=== PATIENT | female | born 1940 | race Caucasian/White ===

== ENCOUNTER 2017-10-28 13:19 | Inpatient (IN) | payer OTHER ==
--- NOTE | 2017-10-28 14:37 | PDOC ---
History of Present Illness - General History Source: Patient Exam Limitations: No Limitations - History of Present Illness Initial Comments: 10/28/17 14:37 The patient is a 77 year old female with history significant for DM, thyroid disorder, sent to the ED by her PCP for 3-4 months of generalized weakness and weight loss. The patient was seen by her PCP, who found her to be bradycardic with an abnormal EKG. She was sent to the hospital for further evaluation and concern for sick sinus syndrome. The patient denies any chest pain. She denies fever or chills. She denies nausea, vomiting, or diarrhea. PCP: Dr. Dave <Delilah Saleh - Last Filed: 10/28/17 16:16> <Shivam Storm - Last Filed: 10/28/17 16:27> - General Chief Complaint: Irregular Heart Beat Stated Complaint: PCP SENT Time Seen by Provider: 10/28/17 14:13 Past History <Delilah Saleh - Last Filed: 10/28/17 16:16> - Past Medical History COPD: No Diabetes: Yes Thyroid Disease: Yes - Suicide/Smoking/Psychosocial Hx Smoking History: Never smoked <Shivam Storm - Last Filed: 10/28/17 16:27> - Past Medical History Allergies/Adverse Reactions: Allergies Allergy/AdvReac Type Severity Reaction Status Date / Time No Known Allergies Allergy Verified 10/28/17 13:35 Review of Systems - Review of Systems Able to Perform ROS?: Yes Comments:: 10/28/17 14:58 GENERAL/CONSTITUTIONAL: +Generalized weakness. No fever or chills. HEAD, EYES, EARS, NOSE AND THROAT: No change in vision. No ear pain or discharge. No sore throat. CARDIOVASCULAR: No chest pain or shortness of breath. RESPIRATORY: No cough, wheezing, or hemoptysis. GASTROINTESTINAL: No nausea, vomiting, diarrhea or constipation. GENITOURINARY: No dysuria, frequency, or change in urination. MUSCULOSKELETAL: No joint or muscle swelling or pain. No neck or back pain. SKIN: No rash NEUROLOGIC: No headache, vertigo, loss of consciousness, or change in strength/ sensation. ENDOCRINE: +Weight loss. No increased thirst. HEMATOLOGIC/LYMPHATIC: No anemia, easy bleeding, or history of blood clots. ALLERGIC/IMMUNOLOGIC: No hives or skin allergy. <Delilah Saleh - Last Filed: 10/28/17 16:16> *Physical Exam - Vital Signs Last Vital Signs Temp Pulse Resp BP Pulse Ox 98.2 F 58 L 19 128/64 100 10/28/17 13:35 10/28/17 13:35 10/28/17 13:35 10/28/17 13:35 10/28/17 13:35 - Physical Exam Comments: 10/28/17 15:00 GENERAL: Awake, alert, and fully oriented, in no acute distress HEAD: No signs of trauma EYES: PERRLA, EOMI, sclera anicteric, conjunctiva clear ENT: Auricles normal inspection, hearing grossly normal, nares patent, oropharynx clear without exudates. Moist mucosa NECK: Normal ROM, supple, no lymphadenopathy, JVD, or masses LUNGS: Breath sounds equal, clear to auscultation bilaterally. No wheezes, and no crackles HEART: +Bradycardia, regular rhythm, normal S1 and S2, no murmurs, rubs or gallops ABDOMEN: Soft, nontender, normoactive bowel sounds. No guarding, no rebound. No masses EXTREMITIES: Normal range of motion, no edema. No clubbing or cyanosis. No cords, erythema, or tenderness NEUROLOGICAL: Cranial nerves II through XII grossly intact. Normal speech, normal gait SKIN: Warm, Dry, normal turgor, no rashes or lesions noted. <Delilah Saleh - Last Filed: 10/28/17 16:16> - Vital Signs Last Vital Signs Temp Pulse Resp BP Pulse Ox 98.2 F 58 L 19 128/64 100 10/28/17 13:35 10/28/17 13:35 10/28/17 13:35 10/28/17 13:35 10/28/17 13:35 <Shivam Storm - Last Filed: 10/28/17 16:27> Moderate Sedation - Procedure Monitoring Vital Signs: Vital Signs Temp Pulse Resp BP Pulse Ox 98.2 F 58 L 19 128/64 100 10/28/17 13:35 10/28/17 13:35 10/28/17 13:35 10/28/17 13:35 10/28/17 13:35 <Delilah Saleh - Last Filed: 10/28/17 16:16> - Procedure Monitoring Vital Signs: Vital Signs Temp Pulse Resp BP Pulse Ox 98.2 F 58 L 19 128/64 100 10/28/17 13:35 10/28/17 13:35 10/28/17 13:35 10/28/17 13:35 10/28/17 13:35 <Shivam Storm - Last Filed: 10/28/17 16:27> Heart Score/ECG Review #1 ECG reviewed & interpreted by me at: 15:15 10/28/17 16:25 NSR 55, no std/tereza ,normal axis, normal intervals, QTC 449 msec, no brugada, no HOCM, no WPW <Shivam Storm - Last Filed: 10/28/17 16:27> ED Treatment Course - LABORATORY CBC & Chemistry Diagram: 10/28/17 15:06 10/28/17 15:06 <Delilah Saleh - Last Filed: 10/28/17 16:16> - LABORATORY CBC & Chemistry Diagram: 10/28/17 15:06 10/28/17 15:06 - RADIOLOGY Radiology Studies Ordered: Category Date Time Status CHEST X-RAY PORTABLE* [RAD] Stat Radiology 10/28/17 14:13 Ordered <Shivam Storm - Last Filed: 10/28/17 16:27> Medical Decision Making - Medical Decision Making 10/28/17 16:[address] Dave, patient's PCP, at [phone]. Awaiting callback. <Delilah Saleh - Last Filed: 10/28/17 16:16> - Medical Decision Making 10/28/17 14:54 A portion of this note was documented by scribe services under my direction. I have reviewed the details of the note, within reason, and agree with the documentation with the following case summary and management plan written by me. Patient treated in the ED. Nursing notes are reviewed and incorporated into the medical decision-making. Vital signs reviewed. Peripheral IV access obtained by the nurse, laboratory studies are drawn and sent, reviewed and interpreted by myself. Vital Signs Temp Pulse Resp BP Pulse Ox 98.2 F 58 L 19 128/64 100 10/28/17 13:35 10/28/17 13:35 10/28/17 13:35 10/28/17 13:35 10/28/17 13:35 77-year-old female with past medical history of thyroid disorder, diabetes sent in by her primary care physician for palpitations. The patient for last several months been having generalized weakness and weight loss. No fevers or chills. Patient underwent a physical exam today was noted to have bradycardia and EKG and was sent to rule out sick sinus syndrome. Patient denies chest pain or shortness of breath. The patient will need a full workup including cardiac. Should also consider potentially other issues such as malignancy for weight loss. Labs, urinalysis, chest x-ray and admission to the hospital. 10/28/17 16:26 CBC, BMP 10/28/17 15:06 10/28/17 15:06 CMP Sodium 139 mmol/L (136-145) 10/28/17 15:06 Potassium 4.2 mmol/L (3.5-5.1) 10/28/17 15:06 Chloride 105 mmol/L (98-107) 10/28/17 15:06 Carbon Dioxide 28 mmol/L (21-32) 10/28/17 15:06 Anion Gap 6 (8-16) L 10/28/17 15:06 BUN 10 mg/dL (7-18) 10/28/17 15:06 Creatinine 0.7 mg/dL (0.55-1.02) 10/28/17 15:06 Creat Clearance w eGFR > 60 (>60) 10/28/17 15:06 Random Glucose 103 mg/dL (74-106) 10/28/17 15:06 Calcium 9.4 mg/dL (8.5-10.1) 10/28/17 15:06 Phosphorus 3.5 mg/dL (2.5-4.9) 10/28/17 15:06 Magnesium 2.2 mg/dL (1.8-2.4) 10/28/17 15:06 Albumin 4.0 g/dl (3.4-5.0) 10/28/17 15:[address] Dave. Accepts for telemetry admission. Requests Dr. Rodriguez for cardiac consultation. Case discussed in detail with admitting physician including history, physical exam and ancillary studies. Admitting physician has assumed care for the patient, will follow all pending diagnostics and will complete the evaluation and treatment. <Shivam Storm - Last Filed: 10/28/17 16:27> *DC/Admit/Observation/Transfer - Attestations Scribe Attestion: 10/28/17 15:01 Documentation prepared by Delilah Saleh, acting as biomedical scientist for Shivam Storm MD. <Delilah Saleh - Last Filed: 10/28/17 16:16> - Discharge Dispostion Decision to Admit order: Yes <Shivam Storm - Last Filed: 10/28/17 16:27> Diagnosis at time of Disposition: Palpitations - Discharge Dispostion Condition at time of disposition: Stable - Referrals Referrals: Reji Dave MD [Primary Care Provider] - - Patient Instructions - Post Discharge Activity
[2017-10-28 15:24] LABS: BASO % 0.6 % (0-2.0); EOS % 0.5 % (0-4.5); HEMATOCRIT 44.3 % (32.4-45.2); HEMOGLOBIN 14.6 GM/dL (10.7-15.3); LYMPH % 33.6 % (8-40); MCH 31.1 pg (25.7-33.7); MEAN CELL VOLUME 94.1 fl (80-96); MEAN PLT VOLUME 9.8 fl (7.5-11.1); MONO % 9.1 % (3.8-10.2); NEUT % 56.2 % (42.8-82.8); PLATELET COUNT 221 K/MM3 (134-434); RBC 4.71 M/mm3 (3.60-5.2); RDW 13.9 % (11.6-15.6); WHITE BLOOD COUNT 10.1 K/mm3 (4.0-10.0)
[2017-10-28 15:43] LABS: URINE APPEARANCE SLCLOUDY; URINE BILIRUBIN NEGATIVE (<2.0 mg/dL); URINE COLOR LTYELLOW; URINE GLUCOSE (UA) NEGATIVE (NEGATIVE); URINE KETONE NEGATIVE (NEGATIVE); URINE LEUK ESTERASE NEGATIVE (NEGATIVE); URINE NITRITE NEGATIVE (NEGATIVE); URINE PROTEIN NEGATIVE (NEGATIVE); URINE UROBILINOGEN NEGATIVE mg/dL (0.2-1.0)
[2017-10-28 15:51] LABS: ANION GAP 6 (8-16); BLOOD UREA NITROGEN 10 mg/dL (7-18); CALCIUM 9.4 mg/dL (8.5-10.1); CHLORIDE 105 mmol/L (98-107); CO2 28 mmol/L (21-32); CREATININE 0.7 mg/dL (0.55-1.02); GLUCOSE,RANDOM 103 mg/dL (74-106); MAGNESIUM 2.2 mg/dL (1.8-2.4); PHOSPHOROUS 3.5 mg/dL (2.5-4.9); POTASSIUM 4.2 mmol/L (3.5-5.1); SODIUM 139 mmol/L (136-145)
[2017-10-28 15:52] LABS: INR 0.95 (0.82-1.09); PROTHROMBIN TIME (PATIENT) 10.7 SEC (9.7-13.0)
[2017-10-28 15:55] LABS: ACTIVATED PTT 34.7 SECONDS (26.9-34.4)
[2017-10-28 15:59] LABS: EPI CELLS RARE /HPF (FEW); URINE MUCUS RARE
[2017-10-28 16:39] LABS: ALK PHOS 92 U/L (45-117); BILIRUBIN,TOTAL 0.5 mg/dL (0.2-1.0); SGOT/AST 20 U/L (15-37); SGPT/ALT 21 U/L (12-78); TOT PROT 8.4 g/dl (6.4-8.2)
--- NOTE | 2017-10-28 18:01 | EKG ---
Test Reason : Blood Pressure : / mmHG Vent. Rate : 055 BPM Atrial Rate : 055 BPM P-R Int : 156 ms QRS Dur : 080 ms QT Int : 470 ms P-R-T Axes : 034 059 060 degrees QTc Int : 449 ms SINUS BRADYCARDIA OTHERWISE NORMAL ECG NO PREVIOUS ECGS AVAILABLE Confirmed by BAKARI CALVERT MD ([id number]) on 10/28/2017 6:00:51 PM Referred By: Confirmed By:BAKARI CALVERT MD
[2017-10-28] MEDS ORDERED: ACETAMINOPHEN 325 MG TABLET (FP) PO PRN (22:34)
[2017-10-28] MEDS ORDERED: SERTRALINE HCL 50 MG TABLET (FP) ONE (23:38)
[2017-10-28] MEDS ORDERED: ALPRAZolam 0.25 MG TABLET ONE (23:38)
[2017-10-29 07:13] LABS: HEMATOCRIT 39.5 % (32.4-45.2); HEMOGLOBIN 13.2 GM/dL (10.7-15.3); MCH 31.3 pg (25.7-33.7); MCHC 33.5 g/dl (32.0-36.0); MEAN CELL VOLUME 93.4 fl (80-96); MEAN PLT VOLUME 9.6 fl (7.5-11.1); PLATELET COUNT 183 K/MM3 (134-434); RBC 4.23 M/mm3 (3.60-5.2); RDW 13.8 % (11.6-15.6); WHITE BLOOD COUNT 9.6 K/mm3 (4.0-10.0)
[2017-10-29] MEDS ORDERED: LEVOTHYROXINE NA 25 MCG TABLET (FP) ONE (07:19)
[2017-10-29] MEDS: LEVOTHYROXINE NA 50 MCG TABLET (FP) PO SCH (07:21)
[2017-10-29 07:50] LABS: ALBUMIN 3.4 g/dl (3.4-5.0); ANION GAP 5 (8-16); BLOOD UREA NITROGEN 12 mg/dL (7-18); CALCIUM 8.8 mg/dL (8.5-10.1); CHLORIDE 106 mmol/L (98-107); CO2 28 mmol/L (21-32); GLUCOSE,RANDOM 96 mg/dL (74-106); POTASSIUM 3.9 mmol/L (3.5-5.1); SODIUM 139 mmol/L (136-145)
[2017-10-29 07:53] LABS: ALK PHOS 79 U/L (45-117); BILIRUBIN,TOTAL 0.4 mg/dL (0.2-1.0); CHOLESTEROL 147 mg/dL (50-200); CREATININE 0.6 mg/dL (0.55-1.02); HDL CHOLESTEROL 66 mg/dL (40-60); SGOT/AST 16 U/L (15-37); SGPT/ALT 18 U/L (12-78); TRIGLYCERIDES 63 mg/dL (35-160)
[2017-10-29] MEDS ORDERED: PT OWN MED DRAWER 7, Y5N ONE (09:16)
[2017-10-29] MEDS: SERTRALINE HCL 25 MG TABLET (FP) PO SCH ×3 (09:21→15:27)
[2017-10-29] MEDS: HEPARIN NA (PORCINE) 5,000 UNITS/ML 1ML VIAL SQ SCH ×2 (09:22→21:39)
--- NOTE | 2017-10-29 09:41 | HP ---
Admitting History and Physical - Admission History of Present Illness: 77 year old female with history significant for DM, thyroid disorder, sent to the ED by her PCP for 3-4 months of generalized weakness and weight loss. The patient was seen by her PCP, who found her to be bradycardic with an abnormal EKG. She was sent to the hospital for further evaluation and concern for sick sinus syndrome. The patient denies any chest pain. She denies fever or chills. She denies nausea, vomiting, or diarrhea. - Past Medical History Cardiovascular: Yes: HTN. No: AFIB, CAD Pulmonary: No: COPD Gastrointestinal: No: GI Bleed Heme/Onc: No: Anemia Endocrine: Yes: Diabetes Mellitus - Smoking History Smoking history: Never smoked Home Medications - Allergies Allergies/Adverse Reactions: Allergies Allergy/AdvReac Type Severity Reaction Status Date / Time No Known Allergies Allergy Verified 10/28/17 13:35 - Home Medications Home Medications: Ambulatory Orders Alprazolam [Xanax] 0.5 mg PO HS 10/28/17 Cholecalciferol (Vitamin D3) [Vitamin D3] 1,000 unit PO DAILY 10/28/17 Levothyroxine [Synthroid -] 50 mcg PO DAILY 10/28/17 Sertraline HCl [Zoloft] 25 mg PO HS 10/28/17 Review of Systems - Review of Systems Constitutional: reports: Weakness Cardiovascular: reports: Shortness of Breath. denies: Chest Pain Respiratory: reports: SOB Neurological: reports: Unsteady Gait, Weakness Physical Examination Vital Signs: Vital Signs Temperature 97.6 F 10/29/17 07:04 Pulse Rate 71 10/29/17 07:04 Respiratory Rate 16 10/29/17 07:04 Blood Pressure 165/87 10/29/17 07:04 O2 Sat by Pulse Oximetry (%) 97 10/29/17 07:04 Cardiovascular: Yes: S1, S2 Respiratory: Yes: Regular, CTA Bilaterally Gastrointestinal: Yes: Normal Bowel Sounds, Soft Edema: No Neurological: Yes: Alert, Oriented, Weakness Labs: CBC, BMP 10/29/17 06:53 10/29/17 06:34 Imaging - Results EKG: Report Reviewed (sinus bradycardia) Problem List - Problems (1) Bradycardia Assessment/Plan: -symptomatic--r/o sss -holter -tele -cardio -tsh nl Code(s): R00.1 - BRADYCARDIA, UNSPECIFIED (2) Weakness Assessment/Plan: -pt eval -tele-cardio -echo Code(s): R53.1 - WEAKNESS (3) Diabetes Assessment/Plan: bgm Code(s): E11.9 - TYPE 2 DIABETES MELLITUS WITHOUT COMPLICATIONS (4) HTN (hypertension) Code(s): I10 - ESSENTIAL (PRIMARY) HYPERTENSION
[2017-10-29] MEDS: INSULIN SLIDING SCALE (NOVOLOG) 1 VIAL SQ SCH ×3 (11:21→21:40)
--- NOTE | 2017-10-29 12:01 | CON.CARD ---
Consult Consult Specialty:: Cardiology Referred by:: Dr. Dave Reason for Consultation:: Bradycardia - History of Present Illness Chief Complaint: weaknes, fatigue, abnormal EKG History of Present Illness: 77 year old woman h/o DMII, hypothyroid, sent in for c/o gen weakness, weight loss and noted to have an EKG showing sinus bradycardia. pt seen and examine in the ER in nad. states her symptoms have been going on for a long time. concerned it is her thyroid. discussed with her daughter on phone. pt denies any palpitations, no dizziness syncope or near syncope. no chest pain or sob. no pnd, orthopnea, or LE edema. she has been losing weight and feels a fullness in her throat. - History Source History Provided By: Patient, Family Member Limitations to Obtaining History: No Limitations - Past Medical History Cardio/Vascular: Yes: HTN. No: AFIB, CAD Pulmonary: No: COPD Gastrointestinal: No: GI Bleed Endocrine: Yes: Diabetes Mellitus, Hypothyroidism - Smoking History Smoking history: Never smoked - Social History Usual Living Arrangement: With Child History of Recent Travel: No Home Medications - Allergies Allergies/Adverse Reactions: Allergies Allergy/AdvReac Type Severity Reaction Status Date / Time No Known Allergies Allergy Verified 10/28/17 13:35 - Home Medications Home Medications: Ambulatory Orders Alprazolam [Xanax] 0.5 mg PO HS 10/28/17 Cholecalciferol (Vitamin D3) [Vitamin D3] 1,000 unit PO DAILY 10/28/17 Levothyroxine [Synthroid -] 50 mcg PO DAILY 10/28/17 Sertraline HCl [Zoloft] 25 mg PO HS 10/28/17 Family Disease History - Family Disease History Family History: Denies Review of Systems - Review of Systems Constitutional: reports: Malaise, Weakness. denies: No Symptoms, Chills, Diaphoresis, Fever, Lethargy, Loss of Appetite, Night Sweats, Unintentional Wgt. Loss, Other Eyes: denies: No Symptoms, Blind Spots, Blurred Vision, Double Vision, Eye Pain , Floaters, Photophobia, Recent Change in Vision, Other HENT: denies: No Symptoms, Difficult Swallowing, Ear Discharge, Ear Pain, Epistaxis, Gingival Bleeding, Hearing Loss, Mouth Swelling, Nasal Congestion, Ocular Prosthesis, Throat Pain, Toothache, Ringing in Ears, Other Neck: denies: No Symptoms, Decreased ROM, Lumps, Pain on Movement, Stiffness, Swollen Glands, Tenderness, Other Cardiovascular: denies: No Symptoms, Chest Pain, Edema, Palpitations, Shortness of Breath, Other Respiratory: denies: No Symptoms, Cough, Exercise Intolerance, Hemoptysis, Orthopnea, PND, Snoring, SOB, SOB on Exertion, Wheezing, Other Gastrointestinal: denies: No Symptoms, Abdominal Pain, Bloating, Constipation, Diarrhea, Dysphagia, Indigestion, Melena, Nausea, Rectal Bleeding, Vomiting, Vomiting Blood, Other Genitourinary: denies: No Symptoms, Burning, Discharge, Dysuria, Flank Pain, Frequency, Hematuria, Incontinence, Lesions, Menses, Pain, Testicular Mass, Testicular Pain, Testicular Swelling, Urgency, Vaginal Bleeding, Other Breasts: denies: No Symptoms Reported, See HPI, Breast Implants, Discharge from Nipple, Lumps, Pain, Skin Changes, Other Musculoskeletal: reports: Muscle Weakness. denies: No Symptoms, Back Pain, Crepitus, Decreased ROM, Extremity Pain, Joint Pain, Joint Swelling, Muscle Pain , Muscle Cramps, Other Integumentary: denies: No Symptoms, Blister, Bruising, Change in Color, Eczema, Erythema, Incision, Lesions, Lump, Pallor, Pruritis, Rash, Wound, Other Neurological: denies: No Symptoms, Change in LOC, Change in Speech, Confusion, Dizziness, Headache, Incoordination, Numbness, Parasthesia, Pre-Existing Deficit , Seizure, Syncope, Tremors, Unsteady Gait, Weakness, Other Endocrine: reports: Unexplained Weight Loss. denies: No Symptoms, Excessive Sweating, Flushing, Increased Hunger, Increased Thirst, Intolerance to Cold, Intolerance to Heat, Unexplained Weight Gain, Other Hematology/Lymphatic: denies: No Symptoms, Easily Bruised, Excessive Bleeding, Swollen Glands, Other Psychiatric: denies: No Symptoms, Altered Sleep Pattern, Anxiety, Depression, Hallucinations, Panic, Paranoia, Suicidal, Other - Risk Factors Known Risk Factors: Yes: Age, Hypertension Vital Signs: Vital Signs Temperature 97.6 F 10/29/17 07:04 Pulse Rate 71 10/29/17 07:04 Respiratory Rate 16 10/29/17 07:04 Blood Pressure 165/87 10/29/17 07:04 O2 Sat by Pulse Oximetry (%) 97 10/29/17 07:04 Constitutional: Yes: Well Nourished, No Distress, Calm Eyes: Yes: WNL, Conjunctiva Clear, EOM Intact, PERRL HENT: Yes: WNL, Atraumatic, Normocephalic Neck: Yes: WNL, Supple, Trachea Midline Respiratory: Yes: WNL, Regular, CTA Bilaterally. No: Rales, Rhonchi, Wheezes Gastrointestinal: Yes: WNL, Normal Bowel Sounds, Soft. No: Distention, Tenderness Renal/: Yes: WNL Cardiovascular: Yes: WNL, Regular Rate and Rhythm. No: Bradycardia, Tachycardia , Pulse Irregular, Gallop, Rub, Varicosities JVD: No Carotid Bruit: No PMI: Non-Displaced Heart Sounds: Yes: S1, S2. No: Split S2, S3, S4, Clicks, Gallop, Rub, Bruit Murmur: No: Systolic Murmur, Diastolic Murmur Musculoskeletal: Yes: Muscle Weakness Extremities: Yes: WNL Edema: No Peripheral Pulses WNL: Yes Peripheral Pulses: 2+ Left Doralis Pedis, 2+ Right Dorsalis Pedis Integumentary: Yes: WNL Neurological: Yes: Alert, Oriented, Cran Nerves II-XII Intact Psychiatric: Yes: Alert, Oriented - Other Data Labs, Other Data: CBC, BMP 10/29/17 06:53 10/29/17 06:34 INR, PTT INR 0.95 (0.82-1.09) 10/28/17 15:06 Troponin, BNP 10/28/17 10/29/17 15:06 06:34 Troponin I < 0.02 < 0.02 Troponin, BNP 10/28/17 10/29/17 15:06 06:34 Troponin I < 0.02 < 0.02 ekg-Sinus akua 51bpm, poor R wave progression, no sig ST abnl Echo: Pending Imaging - Results Chest X-ray: Report Reviewed, Image Reviewed EKG: Report Reviewed, Image Reviewed Other: Report Reviewed, Image Reviewed (tele-SB, NSR HR currently 88bpm) Assessment/Plan 77 year old woman h/o DMII, hypothyroid, sent in for c/o gen weakness, weight loss and noted to have an EKG showing sinus bradycardia. pt seen and examine in the ER in nad. states her symptoms have been going on for a long time. concerned it is her thyroid. discussed with her daughter on phone. pt denies any palpitations, no dizziness syncope or near syncope. no chest pain or sob. no pnd, orthopnea, or LE edema. she has been losing weight and feels a fullness in her throat. Sinus bradycardia -HR increased to 88bpm with minimal exertion in the ER. -unlikely symptomatic sinus bradycardia or sick sinus syndrome at this time -cardiac enzymes wnl -TFTs were wnl -pt unable to walk on the treadmill due to chronic weakness in legs, she appears to be chronotropically competent based on telemetry, an ETT would be helpful to further prove chronotropic competency but she cannot due it at this time due to above reasons. A pharm nuclear stress test would not answer this questions -at this time pt is acceptable to be discharged from a cardiac standpoint with a plan for further outpatient Holter/event monitor and if able to perform ETT at a later time -if remains inpatient for other reasons, ok to dc tele and Holter monitor can be performed.
[2017-10-29] MEDS ORDERED: ACETAMINOPHEN 325 MG TABLET (FP) ONE (13:11)
--- NOTE | 2017-10-29 16:12 | EKG ---
Test Reason : Blood Pressure : / mmHG Vent. Rate : 052 BPM Atrial Rate : 052 BPM P-R Int : 154 ms QRS Dur : 084 ms QT Int : 460 ms P-R-T Axes : 082 059 066 degrees QTc Int : 427 ms SINUS BRADYCARDIA POSSIBLE LEFT ATRIAL ENLARGEMENT BORDERLINE ECG WHEN COMPARED WITH ECG OF 28-OCT-2017 15:13, NO SIGNIFICANT CHANGE WAS FOUND Confirmed by MD Luis Felipe, Buck ([id number]) on 10/29/2017 4:12:23 PM Referred By: Confirmed By:Buck Briscoe MD
[2017-10-29] MEDS ORDERED: ALPRAZolam 0.25 MG TABLET PO SCH (22:00)
[2017-10-30] MEDS: INSULIN SLIDING SCALE (NOVOLOG) 1 VIAL SQ SCH ×4 (06:37→21:36)
[2017-10-30] MEDS: LEVOTHYROXINE NA 50 MCG TABLET (FP) PO SCH (06:39)
[2017-10-30] MEDS: SERTRALINE HCL 25 MG TABLET (FP) PO SCH (10:17)
[2017-10-30] MEDS: HEPARIN NA (PORCINE) 5,000 UNITS/ML 1ML VIAL SQ SCH ×2 (10:18→21:37)
--- NOTE | 2017-10-30 10:39 | PN ---
Progress Note, Physician History of Present Illness: seen and examined today in [facility]. no overnight events. no new complaints. - Current Medication List Current Medications: Active Medications Acetaminophen (Tylenol -) 650 mg PO Q6H PRN PRN Reason: PAIN 1-5 OR FEVER Last Admin: 10/29/17 08:56 Dose: 650 mg Alprazolam (Xanax -) 0.5 mg PO HS [facility] Last Admin: 10/29/17 21:39 Dose: 0.5 mg Heparin Sodium (Porcine) (Heparin -) 5,000 unit SQ BID [facility] Last Admin: 10/30/17 10:18 Dose: 5,000 unit Insulin Aspart (Novolog Vial Sliding Scale -) 1 vial SQ ACHS [facility]; Protocol Last Admin: 10/30/17 06:37 Dose: Not Given Levothyroxine Sodium (Synthroid -) 50 mcg PO DAILY@0700 [facility] Last Admin: 10/30/17 06:39 Dose: 50 mcg Sertraline HCl (Zoloft -) 25 mg PO DAILY [facility] Last Admin: 10/30/17 10:17 Dose: 25 mg - Objective Vital Signs: Vital Signs Temperature 97.7 F 10/30/17 02:09 Pulse Rate 65 10/30/17 02:09 Respiratory Rate 20 10/30/17 02:09 Blood Pressure 128/67 10/30/17 02:09 O2 Sat by Pulse Oximetry (%) 98 10/29/17 21:00 Constitutional: Yes: Well Nourished, No Distress, Calm Eyes: Yes: WNL, Conjunctiva Clear, EOM Intact, PERRL HENT: Yes: WNL, Atraumatic, Normocephalic Neck: Yes: WNL, Supple, Trachea Midline Cardiovascular: Yes: WNL, Regular Rate and Rhythm, S1, S2. No: Bradycardia, Tachycardia, Pulse Irregular, Bruit, JVD, Gallop, Murmur, Rub, S3, S4, Varicosities Respiratory: Yes: Regular, CTA Bilaterally. No: Rales, Rhonchi, Wheezes Gastrointestinal: Yes: Normal Bowel Sounds, Soft. No: Distention, Tenderness Musculoskeletal: Yes: WNL Extremities: Yes: WNL Edema: No Peripheral Pulses WNL: Yes Peripheral Pulses: Left Doralis Pedis: 2+, Right Dorsalis Pedis: 2+ Neurological: Yes: Alert, Oriented Psychiatric: Yes: Alert, Oriented Labs: CBC, BMP 10/29/17 06:53 10/29/17 06:34 INR, PTT INR 0.95 (0.82-1.09) 10/28/17 15:06 - ....Imaging Chest X-ray: Report Reviewed, Image Reviewed EKG: Report Reviewed, Image Reviewed Other: Report Reviewed, Image Reviewed Assessment/Plan 77 year old woman h/o DMII, hypothyroid, sent in for c/o gen weakness, weight loss and noted to have an EKG showing sinus bradycardia. pt seen and examine in the ER in nad. states her symptoms have been going on for a long time. concerned it is her thyroid. discussed with her daughter on phone. pt denies any palpitations, no dizziness syncope or near syncope. no chest pain or sob. no pnd, orthopnea, or LE edema. she has been losing weight and feels a fullness in her throat. Sinus bradycardia-does not appear to be symptomatic bradycardia -HR increased to 88bpm with minimal exertion in the ER. -unlikely symptomatic sinus bradycardia or sick sinus syndrome at this time -TFTs were wnl -Holter is currently on and echo was ordered, f/up results and if wnl pt is acceptable for discharge home from a cardiac standpoint with outpatient f/up -[facility] outpatient f/up
[2017-10-30] MEDS ORDERED: SERTRALINE HCL 50 MG TABLET (FP) PO SCH (11:53)
--- NOTE | 2017-10-30 11:55 | PN ---
Progress Note, Physician Chief Complaint: BLLE weakness numbness and tingling History of Present Illness: NAD, feels anxious, upon questioning, she states she feels BLLE weakness, sometimes numbness and tingling in LLE. She also complains of Left sided lumbar region pain that started 2 months ago. She was seen by Cardiology to r/o sick sinus syndrome, her workup is negative and she was cleared by Cardiology to be discharged. In past one year there has been no falls, she doesn't use any cane or walker for ambulation. - Current Medication List Current Medications: Active Medications Acetaminophen (Tylenol -) 650 mg PO Q6H PRN PRN Reason: PAIN 1-5 OR FEVER Last Admin: 10/29/17 08:56 Dose: 650 mg Alprazolam (Xanax -) 0.5 mg PO HS [facility] Last Admin: 10/29/17 21:39 Dose: 0.5 mg Cholecalciferol (Vitamin D3 -) 1,000 unit PO DAILY [facility] Heparin Sodium (Porcine) (Heparin -) 5,000 unit SQ BID [facility] Last Admin: 10/30/17 10:18 Dose: 5,000 unit Insulin Aspart (Novolog Vial Sliding Scale -) 1 vial SQ [facility]; Protocol Last Admin: 10/30/17 11:16 Dose: Not Given Levothyroxine Sodium (Synthroid -) 50 mcg PO DAILY@0700 [facility] Last Admin: 10/30/17 06:39 Dose: 50 mcg Sertraline HCl (Zoloft -) 25 mg PO DAILY [facility] Last Admin: 10/30/17 10:17 Dose: 25 mg - Objective Vital Signs: Vital Signs Temperature 98.3 F 10/30/17 09:00 Pulse Rate 76 10/30/17 09:00 Respiratory Rate 20 10/30/17 09:00 Blood Pressure 128/90 10/30/17 09:00 O2 Sat by Pulse Oximetry (%) 98 10/30/17 09:00 Constitutional: Yes: Well Nourished, No Distress, Anxious Cardiovascular: Yes: Regular Rate and Rhythm Respiratory: Yes: Regular Gastrointestinal: Yes: Normal Bowel Sounds, Soft, Abdomen, Obese Musculoskeletal: Yes: Back Pain (LEFT SIDED LUMBAR REGION) Extremities: Yes: WNL Edema: No Peripheral Pulses WNL: Yes Neurological: Yes: Alert, Oriented Psychiatric: Yes: Alert, Oriented Labs: CBC, BMP 10/29/17 06:53 10/29/17 06:34 INR, PTT INR 0.95 (0.82-1.09) 10/28/17 15:06 Problem List - Problems (1) Anxiety Assessment/Plan: -worse since her 's passing in Jul 2017 -She takes sertraline 25 mg po daily, would increase it to 50 mg po daily Code(s): F41.9 - ANXIETY DISORDER, UNSPECIFIED (2) Lower extremity numbness Assessment/Plan: -Lumbar spine MRI without contrast -Neurology consult -Flow Floor Attendant consult Code(s): R20.0 - ANESTHESIA OF SKIN (3) Diabetes Assessment/Plan: -A1C 6.8 % -Insulin Sliding Novolog sliding scale -Diabetic diet -Upon discharge would start metformin 500 mg po BID Code(s): E11.9 - TYPE 2 DIABETES MELLITUS WITHOUT COMPLICATIONS Assessment/Plan see problem list
[2017-10-30] MEDS: CHOLECALCIFEROL (VITAMIN D3) 1,000 UNIT TABLET (FP) PO SCH (12:22)
[2017-10-30] MEDS ORDERED: ALPRAZolam 0.25 MG TABLET PO PRN (13:53)
[2017-10-30 14:42] VITALS: BMI 21.8
--- NOTE | 2017-10-30 16:29 | HOL ---
Hook-up date: 2017-10-29 11:21:00 Duration: 24:00:00 Test Indications: R/O SSS Medications: 15882 QRS complexes 214 Ventricular ectopics which represent <1 % of total QRS comp. 302 Supraventricular ectopics which represent <1 % of total QRS comp. * Paced QRS complexs which represent % of total QRS comp. 9 % of Time Classified as Noise VENTRICULAR ECTOPY 207 Isolated 0 Bigeminal Cycles 1 Couplets 1 Runs 4 Beats in Runs 4 Beats LONGEST at 155 BPM at 18:25:26 2017-10-29 4 Beats FASTEST at 155 BPM at 18:25:26 2017-10-29 SUPRAVENTRICULAR ECTOPY 213 Isolated 41 Couplets 1 Runs 6 Beats in Runs 6 Beats LONGEST at 138 BPM at 17:42:06 2017-10-29 6 Beats FASTEST at 138 BPM at 17:42:06 2017-10-29 HEART RATES 48 MIN at 13:04:10 2017-10-29 67 AVG 129 MAX at 22:55:06 2017-10-29 LONGEST RR 1.536 secs at 22:24:28 2017-10-29 SCANNED BY: CARLINE 10/30/17 Normal sinus rhythm 4 beats NSVT at 155 BPM 6 beats SVT at 138 bpm Confirmed by JAVID FONG MD ([id number]) on 10/30/2017 4:29:18 PM Referred By: Beth SAVAGE Overread By: JAVID FONG MD
--- NOTE | 2017-10-30 17:55 | CONS ---
DATE OF CONSULTATION: 10/29/2017 DATE OF DICTATION: 10/30/2017 PHYSICAL MEDICINE REHABILITATION CONSULTATION HISTORY OF PRESENT ILLNESS: The patient is a 77-year-old woman with past medical history of thyroid disorder as well as diabetes who was admitted to [facility] with bradycardia, abnormal EKG, generalized weakness and weight loss. Patient states she has had multiple deaths including a relative back in January of 2017 and her in June 2017. She has been increasingly feeling weak and was seen in her primary care physician's office, where she was found to have abnormal EKG with bradycardia. She was sent to the emergency room where she was admitted. She has undergone cardiology consultation, who felt that she has sinus bradycardia. Cardiac enzymes were normal for further workup as an outpatient. CBC on admission: WBC is elevated at 10.1, repeat October 29 of 9.6. Hemoglobin stable at 13.2, platelet count 183. Patient's chemistry was within normal limits except for HDLs, which were elevated at 66. TSH normal 2.12, free T4 of 1.14, free T3 of 2.8. Hemoglobin A1c however was elevated at 6.8. Patient herself feels unsteady, tremulous when standing and is now seen in rehabilitation evaluation. PAST MEDICAL AND SURGICAL HISTORY: Thyroid disorder as well as diabetes. SOCIAL HISTORY: Lives alone. Recent . Lives in an apartment with an elevator. Premorbidly independent, but she has been having increasing difficulty with her mobility. REVIEW OF SYSTEMS: No current lightheadedness, dizziness. No blurry vision or double vision. No nausea, vomiting, difficulty swallowing, difficulty chewing. She does have good appetite but weight loss, some tingling in the toes at times but no elena numbness, no joint arthralgias, no neck or back pain, no rash, no dysuria, polyuria, no bowel incontinence or retention, no diarrhea. PHYSICAL EXAMINATION: General: Patient is an anxious woman who is seen both sitting as well as standing and taking a few steps in no acute distress. HEENT: Normocephalic, atraumatic. Extraocular muscles appear intact. Neck: Supple without any palpable spasm. Slightly kyphotic posture. Lumbar spine without any palpable spasm or tenderness. Good lumbar range of motion. She has trace edema in the lower extremities, no calf tenderness. Skin: Without any rash or breakdown. Neuromuscular: She is awake, alert, oriented x3. Cranial nerves 2-12 are grossly intact. She has fairly good strength in the upper extremities with some mild proximal weakness in the shoulder girdle and hip girdle, and 4+ out of 5, but good distal strength, normal sensation to pinprick or cold temperature, but depressed reflexes. Her gait is unsteady. She has a little bit of difficulty standing erect and seems fatigued. OVERALL IMPRESSION: 1. Deficits in mobility and activities of daily living. 2. Decondition. 3. Weight loss. 4. Sinus bradycardia. Workup in progress. 5. History of diabetes with elevated hemoglobins, A1c. 6. Thyroid disorder. 7. Status post leukocytosis. PLAN/SUGGESTION: 1. Physical therapy to evaluate the patient including bed mobility transfers, gait training, strengthening, reconditioning. 2. Out of bed to chair with assistance. 3. Ambulate on the unit with nursing supervision if appropriate. 4. DVT prophylaxis on subcutaneous heparin. 5. Monitor bowels for constipation. 6. Probably disposition home with home care when medically stable. Thank you for this consultation. VIBHA WRIGHT M.D. [id number]
[2017-10-31] MEDS ORDERED: ALPRAZolam 0.25 MG TABLET PO ONE (02:52)
[2017-10-31] MEDS: INSULIN SLIDING SCALE (NOVOLOG) 1 VIAL SQ SCH ×2 (06:22→12:10)
[2017-10-31] MEDS: LEVOTHYROXINE NA 50 MCG TABLET (FP) PO SCH (06:23)
--- NOTE | 2017-10-31 09:35 | CONSULT ---
Consult - text type - Consultation Consultation Note: Neurology 77 year old female with history significant for DM, thyroid disorder, sent to the ED by her PCP for 3-4 months of generalized weakness and weight loss. The patient was seen by her PCP, who found her to be bradycardic with an abnormal EKG. She was sent to the hospital for further evaluation and concern for sick sinus syndrome. I was consulted due to weakness and during my evaluation, she was ambulating without difficulty. Has no strenght deficits. SHe does have a history of low back pain and MRI L spine completed overnight, reviewed with her today. Showed disc protrusions, L3-S1, shallow, indent thecal sac but no canal or foramina stenosis. Does not have significant back pain at this time. Discussed with her physical therapy to help with her feeling of weakness in her legs, though no actual deficit. - Past Medical History Cardiovascular: Yes: HTN. No: AFIB, CAD Pulmonary: No: COPD Gastrointestinal: No: GI Bleed Heme/Onc: No: Anemia Endocrine: Yes: Diabetes Mellitus - Smoking History Smoking history: Never smoked Home Medications - Allergies Allergies/Adverse Reactions: Allergies Allergy/AdvReac Type Severity Reaction Status Date / Time No Known Allergies Allergy Verified 10/28/17 13:35 - Home Medications Home Medications: Ambulatory Orders Alprazolam [Xanax] 0.5 mg PO HS 10/28/17 Cholecalciferol (Vitamin D3) [Vitamin D3] 1,000 unit PO DAILY 10/28/17 Levothyroxine [Synthroid -] 50 mcg PO DAILY 10/28/17 Sertraline HCl [Zoloft] 25 mg PO HS 10/28/17 Review of Systems - Review of Systems Constitutional: reports: Weakness Cardiovascular: reports: Shortness of Breath. denies: Chest Pain Respiratory: reports: SOB Neurological: reports: Unsteady Gait, Weakness Physical Examination Vital Signs Temperature 98.1 F 10/31/17 06:00 Pulse Rate 81 10/31/17 06:00 Respiratory Rate 18 10/31/17 06:00 Blood Pressure 136/62 10/31/17 06:00 O2 Sat by Pulse Oximetry (%) 96 10/30/17 21:00 Cardiovascular: Yes: S1, S2 Respiratory: Yes: Regular, CTA Bilaterally Gastrointestinal: Yes: Normal Bowel Sounds, Soft Edema: No Neurological: Yes: Alert, Oriented, CN intact, strength symetric and normal, sensation intact, gait without difficulty, no ataxia 10/29/17 06:53 10/29/17 06:34 Imaging MRI L spine reviewed PLan 77 year old female with history significant for DM, thyroid disorder, sent to the ED by her PCP for 3-4 months of generalized weakness and weight loss. The patient was seen by her PCP, who found her to be bradycardic with an abnormal EKG. She was sent to the hospital for further evaluation and concern for sick sinus syndrome. I was consulted due to weakness and during my evaluation, she was ambulating without difficulty. Has no strenght deficits. SHe does have a history of low back pain and MRI L spine completed overnight, reviewed with her today. Showed disc protrusions, L3-S1, shallow, indent thecal sac but no canal or foramina stenosis. Does not have significant back pain at this time. Discussed with her physical therapy to help with her feeling of weakness in her legs, though no actual deficit. Would pursue conservative care Gabapentin can be given if having sciatica but did not describe this to me Not ataxic, ambulates Can give OTC nsaids (ibuprofen) if pain Advised exercise to strenghten muscles
[2017-10-31] MEDS ORDERED: PT OWN MED DRAWER 7, Y5N ONE (09:47)
[2017-10-31] MEDS: HEPARIN NA (PORCINE) 5,000 UNITS/ML 1ML VIAL SQ SCH (09:56)
[2017-10-31] MEDS: CHOLECALCIFEROL (VITAMIN D3) 1,000 UNIT TABLET (FP) PO SCH (09:56)
[2017-10-31 13:28] VITALS: BP 100/57; PULSE 60; TEMP 97.9
--- NOTE | 2017-10-31 13:44 | DS ---
Physical Examination Vital Signs: Vital Signs Temperature 97.9 F 10/31/17 13:26 Pulse Rate 60 10/31/17 13:26 Respiratory Rate 20 10/31/17 13:26 Blood Pressure 100/57 10/31/17 13:26 O2 Sat by Pulse Oximetry (%) 96 10/31/17 09:00 Constitutional: Yes: Well Nourished, No Distress, Anxious Cardiovascular: Yes: Regular Rate and Rhythm Respiratory: Yes: Regular Gastrointestinal: Yes: Normal Bowel Sounds, Soft Musculoskeletal: Yes: Muscle Weakness Extremities: Yes: WNL Edema: No Peripheral Pulses WNL: Yes Neurological: Yes: Alert, Oriented Psychiatric: Yes: Alert, Oriented Labs: CBC, BMP 10/29/17 06:53 10/29/17 06:34 Discharge Summary Reason For Visit: PALPITATIONS Current Active Problems Anxiety (Acute) Bradycardia (Acute) Diabetes (Acute) HTN (hypertension) (Acute) Lower extremity numbness (Acute) Palpitations (Acute) Weakness (Acute) Hospital Course: 77 year old female with history significant for DM, thyroid disorder, sent to the ED by her PCP for 3-4 months of generalized weakness and weight loss. The patient was seen by her PCP, who found her to be bradycardic with an abnormal EKG. She was sent to the hospital for further evaluation and concern for sick sinus syndrome. The patient denies any chest pain. She denies fever or chills. She denies nausea, vomiting, or diarrhea. Condition: Stable - Instructions Diet, Activity, Other Instructions: -Increase Sertraline to 50 mg daily -Start Gabapentin 100 mg 3 x day (B,L,D) -Follow up with Dr Jayesh Christianson (Neurology) and Dr Reji Dave (PCP) outpatient Referrals: Jayesh Christianson MD [Staff Physician] - Reji Dave MD [Primary Care Provider] - Disposition: HOME - Home Medications Comprehensive Discharge Medication List: Ambulatory Orders Alprazolam [Xanax] 0.5 mg PO HS 10/28/17 Cholecalciferol (Vitamin D3) [Vitamin D3] 1,000 unit PO DAILY 10/28/17 Levothyroxine [Synthroid -] 50 mcg PO DAILY 10/28/17 Sertraline HCl [Zoloft] 25 mg PO HS 10/28/17 Losartan Potassium [Cozaar -] 50 mg PO DAILY 10/29/17 Gabapentin [Neurontin -] 100 mg PO Q8H #90 capsule 10/31/17 Sertraline HCl [Zoloft -] 50 mg PO DAILY #30 tablet 10/31/17
== END 2017-10-31 14:16 | disposition home or self-care (01) | DRG 310 ==
LOC: JER 13:19 → JERBED 16:27 → J7W 10-29 16:15
PROVIDERS: ADMIT Family Medicine; ATTEND Family Medicine
DX: R00.1 Bradycardia, unspecified (principal); R00.2 Palpitations; E11.9 Type 2 diabetes mellitus without complications; I10 Essential (primary) hypertension; E03.9 Hypothyroidism, unspecified; I36.1 Nonrheumatic tricuspid (valve) insufficiency; M51.26 Other intervertebral disc displacement, lumbar region; F41.9 Anxiety disorder, unspecified; R20.0 Anesthesia of skin
CPT/HCPCS: 36415; 71045-TC-FY; 72148-TC; 80053; 80061; 81003; 81015; 82550; 82962; 83036; 83721; 83735; 84100; 84439; 84443; 84481; 84484; 85025; 85027; 85610; 85730; 93005; 93010; 93225; 93226; 93306-TC; 97116-GP; 97161-GP; 99285-25; J1644

== ENCOUNTER 2020-02-24 09:02 | Inpatient (IN) | payer OTHER ==
--- OUTSIDE RECORDS SUMMARY | 2020-02-24 09:48 | XMS ---
:1940 Author Organization [facility] Care Team Providers Name Role Phone DiGiorno, Christopher Unavailable DiGiorno, Christopher Unavailable DiGiorno, Christopher Unavailable 0004 Jolie, Ammir Unavailable [phone] Jolie, Ammir Unavailable [phone] Jolie, Ammir Unavailable [phone] Jolie, Ammir Unavailable [phone] Jolie, Ammir Unavailable [phone] Jolie, Ammir Unavailable [phone] Jolie, Ammir Unavailable [phone] Jolie, Ammir Unavailable [phone] Jolie, Ammir Unavailable [phone] Jolie, Ammir Unavailable [phone] Jolie, Ammir Unavailable [phone] Jolie, Ammir Unavailable [phone] Jolie, Ammir Unavailable [phone] Jolie, Ammir Unavailable [phone] Jolie, Ammir Unavailable [phone] Re-disclosure Warning The records that you are about to access may contain information from federally- assisted alcohol or drug abuse programs. If such information is present, then the following federally mandated warning applies: This information has been disclosed to you from records protected by federal confidentiality rules (42 CFR part 2). The federal rules prohibit you from making any further disclosure of this information unless further disclosure is expressly permitted by the written consent of the person to whom it pertains or as otherwise permitted by 42 CFR part 2. A general authorization for the release of medical or other information is NOT sufficient for this purpose. The Federal rules restrict any use of the information to criminally investigate or prosecute any alcohol or drug abuse patient.The records that you are about to access may contain highly sensitive health information, the redisclosure of which is protected by Article 27-F of the [facility] Public Health law. If you continue you may haveaccess to information: Regarding HIV / AIDS; Provided by facilities licensed or operated by the [facility] Office of Mental Health; or Provided by the [facility] Office for People With Developmental Disabilities. If such information is present, then the following [facility] mandated warning applies: This information has been disclosed to you from confidential records which are protected by state law. State law prohibits you from making any further disclosure of this information without the specific written consent of the person to whom it pertains, or as otherwise permitted by law. Any unauthorized further disclosure in violation of state law may result in a fine or assisted sentence or both. A general authorization for the release of medical or other information is NOT sufficient authorization for further disclosure. Encounters Encounter Providers Location Date Indications Data Source(s ) Attender: Hardeep 02/17/2020 MED [facility] ([facility] 12:00:00 AM [facility], ) EDT Office Attender: aHrdeep 02/17/2020 12:00:00 AM ED T [facility] ([facility], ) Office Attender: Hardeep 02/17/2020 12:00:00 AM ED T [facility] Office Attender: Reji Dave 01/27/2020 12:00:00 AM E DT MEDGEN ([facility]) Office Attender: Reji Dave 01/27/2020 12:00:00 AM E DT MEDGEN ([facility] Jolie Physician) Office Attender: Reji Dave 01/27/2020 12:00:00 AM E DT MEDGEN ([facility] Jolie Physician) Office Attender: Reji Dave 01/18/2020 12:00:00 AM E DT MEDGEN ([facility] Jolie Physician) Office Attender: Ammir Jolie 01/18/2020 12:00:00 AM E DT MEDGEN ([facility] Jolie Physician) Office Attender: Ammir Jolie 01/18/2020 12:00:00 AM E DT MEDGEN ([facility] Jolie Physician) Office Attender: mir Jolie 01/18/2020 12:00:00 AM E DT MEDGEN ([facility] Jolie Physician) Office Attender: mir Jolie 01/18/2020 12:00:00 AM E DT MEDGEN ([facility] Jolie Physician) Office Attender: mir Jolie 01/18/2020 12:00:00 AM E DT MEDGEN ([facility] Jolie Physician) Office Attender: mir Jolie 01/18/2020 12:00:00 AM E DT MEDGEN ([facility] Jolie Physician) Office Attender: mir Jolie 01/18/2020 12:00:00 AM E DT MEDGEN ([facility] Jolie Physician) Office Attender: mir Jolie 01/18/2020 12:00:00 AM E DT MEDGEN ([facility] Jolie Physician) Office Attender: mir Jolie 01/18/2020 12:00:00 AM E DT MEDGEN ([facility] Jolie Physician) Office Immunizations Vaccine Date Status Description Data Source(s) New in 2011. IIV4 04/22/2019 completed MEDGEN (A mmir Jolie 12:00:00 AM EST Physician) New in 2011. IIV4 04/22/2019 completed MEDGEN (A mmir Jolie 12:00:00 AM EST Physician) Pneumococcal conjugate 02/19/2018 completed MEDGE N (Ammir Jolie PCV 13 12:00:00 AM EDT Physician) Pneumococcal conjugate 02/19/2018 completed MEDGE N (Ammir Jolie PCV 13 12:00:00 AM EDT Physician) Medications Medication Brand Start Product Dose Route Administrative Pharmacy St atus Indications Reaction Description Data Name Date Form Instructions Instructions Source(s) quetiapine SEROQU 02/16/ TABLET 30 complet SEROQ UEL [facility] (St 50 MG Oral EL:616 2020 ed [facility] Tablet 487 12:00: Medical, SEROQUEL:61 00 AM PC) 6487 EDT Lisinopril LISINO 02/16/ TABLET 30 complet LISIN OPRIL [facility] (St 10 MG Oral PRIL:3 2019 ed [facility] Tablet 52658 12:00: Medical, LISINOPRIL: 00 AM PC) 122110 EDT pantoprazol PANTOP 02/16/ DELAYED 30 complet GARNER TOPRAZOLE MED[facility] (St e 20 MG RAZOLE 2019 RELEASE ed [facility] Delayed :76657 12:00: TABLET Medica l, Release 2 00 AM PC) Oral Tablet EDT PANTOPRAZOL E:[id number] MULTI 02/16/ complet MULTI MED[facility] ( St VITAMIN: 2020 ed VITAMIN [facility] 12:00: Medical, 00 AM PC) EDT Levothyroxi LEVOTH 02/16/ TABLET 30 complet LEVO THYROXIN MED[facility] (St ne Sodium YROXIN 2019 ed E [facility] 0.05 MG E:9662 12:00: Medical, Oral Tablet 21 AM PC) LEVOTHYROXI EDT NE:745226 Hydrochloro HYDROC 01/17/ CAPSULE 7 complet HYD ROCHLOROT MEDGEN thiazide HLOROT 2020 ed HIAZIDE (Ammir 12.5 MG HIAZID 12:00: Jolie Oral E:1998 AM Physician) Capsule 03 EDT HYDROCHLORO THIAZIDE:19 9903 quetiapine SEROQU 01/17/ TABLET 15 complet SEROQ UEL MEDGEN 25 MG Oral EL:153 2020 ed (Ammir Tablet 638 12:00: Jolie [Seroquel] 00 AM Physicia n) SEROQUEL:15 EDT 3638 Hydrochloro HYDROC 01/17/ CAPSULE 7 complet HYD ROCHLOROT MEDGEN thiazide HLOROT 2020 ed HIAZIDE (Ammir 12.5 MG HIAZID 12:00: Jolie Oral E:1998 AM Physician) Capsule 03 EDT HYDROCHLORO THIAZIDE:19 9903 quetiapine SEROQU 01/17/ TABLET 15 complet SEROQ UEL MEDGEN 25 MG Oral EL:153 2020 ed (Ammir Tablet 638 12:00: Jolie [Seroquel] 00 AM Physicia n) SEROQUEL:15 EDT 3638 pantoprazol PANTOP 12/20/ DELAYED 30 complet GARNER TOPRAZOLE MEDGEN e 40 MG RAZOLE 2020 RELEASE ed (Ammir Delayed :93238 12:00: TABLET Jolie Release 0 00 AM Physician) Oral Tablet EDT PANTOPRAZOL E:960144 pantoprazol PANTOP 12/20/ DELAYED 30 complet GARNER TOPRAZOLE MEDGEN e 40 MG RAZOLE 2019 RELEASE ed (Ammir Delayed :75607 12:00: TABLET Jolie Release 0 00 AM Physician) Oral Tablet EDT PANTOPRAZOL E:575770 Esomeprazol NEXIUM 10/20/ DELAYED 30 complet NEX IUM MEDGEN e 20 MG :12758 2019 RELEASE ed (Ammir Delayed 6 12:00: CAPSULE Jolie Release 00 AM Physician) Oral EDT Capsule NEXIUM:6067 26 Esomeprazol NEXIUM 10/20/ DELAYED 30 complet NEX IUM MEDGEN e 20 MG :61849 2019 RELEASE ed (Ammir Delayed 6 12:00: CAPSULE Jolie Release 00 AM Physician) Oral EDT Capsule NEXIUM:6067 26 MULTIVITAMI 09/15/ CAPSULE 90 complet MULTI VITAMIN MEDGEN N:333808 0036 ed (Ammir 12:00: Jolie 00 AM Physician) EDT Ascorbic VITAMI 09/15/ TABLET 120 complet VITAMIN C MEDGEN Acid 500 MG N 2020 ed (Ammir Oral Tablet C:2824 12:00: Raba di VITAMIN 02 00 AM Physician) C:358979 EDT MULTIVITAMI 09/15/ CAPSULE 90 complet MULTI VITAMIN MEDGEN N:780581 4341 ed (Ammir 12:00: Jolie 00 AM Physician) EDT Ascorbic VITAMI 09/15/ TABLET 120 complet VITAMIN C MEDGEN Acid 500 MG N 2020 ed (Ammir Oral Tablet C:2824 12:00: Raba di VITAMIN 02 00 AM Physician) C:980236 EDT Lisinopril LISINO 06/16/ TABLET 90 complet LISIN OPRIL MEDGEN 10 MG Oral PRIL:3 2019 ed (Ammir Tablet 04198 12:00: Jolie LISINOPRIL: 00 AM Physici an) 823310 EST Levothyroxi SYNTHR 06/16/ TABLET 30 complet SYNT HROID MEDGEN ne Sodium OID:96 2019 ed (Ammir 0.05 MG 6247 12:00: Jolie Oral Tablet 00 AM Physici an) [Synthroid] EST SYNTHROID:9 06843 Lisinopril LISINO 06/16/ TABLET 90 complet LISIN OPRIL MEDGEN 10 MG Oral PRIL:3 2019 ed (Ammir Tablet 54997 12:00: Jolie LISINOPRIL: 00 AM Physici an) 684772 EST Levothyroxi SYNTHR 06/16/ TABLET 30 complet SYNT HROID MEDGEN ne Sodium OID:96 2019 ed (Ammir 0.05 MG 6247 12:00: Jolie Oral Tablet 00 AM Physici an) [Synthroid] EST SYNTHROID:9 48675 Mirtazapine MIRTAZ 04/28/ TABLET 30 complet MIRT AZAPINE MEDGEN 7.5 MG Oral APINE: 2019 ed (Ammir Tablet 034694 12:00: Jolie MIRTAZAPINE 00 AM Physici an) :327734 EST Isopropyl ALCOHO 04/28/ PAD 1 complet ALCOHOL PREP MEDGEN Alcohol 0.7 L PREP 2019 ed PADS (Ammir ML/ML PADS:7 12:00: Jolie Medicated 48011 00 AM Physicia n) Pad ALCOHOL EST PREP PADS:789727 Mirtazapine MIRTAZ 04/28/ TABLET 30 complet MIRT AZAPINE MEDGEN 7.5 MG Oral APINE: 2019 ed (Ammir Tablet 780362 12:00: Jolie MIRTAZAPINE 00 AM Physici an) :410563 EST Isopropyl ALCOHO 04/28/ PAD 1 complet ALCOHOL PREP MEDGEN Alcohol 0.7 L PREP 2019 ed PADS (Ammir ML/ML PADS:7 12:00: Jolie Medicated 96427 00 AM Physicia n) Pad ALCOHOL EST PREP PADS:023394 Aspirin 81 ASPIRI 01/21/ DELAYED 90 complet ASPI RIN MEDGEN MG Delayed N 2019 RELEASE ed ADULT LOW ( Ammir Release ADULT 12:00: TABLET STRENGTH Rab dione Oral Tablet LOW 00 AM Physici an) ASPIRIN STRENG EDT ADULT LOW TH:308 STRENGTH:30 416 8416 Aspirin 81 ASPIRI 01/21/ DELAYED 90 complet ASPI RIN MEDGEN MG Delayed N 2019 RELEASE ed ADULT LOW ( Ammir Release ADULT 12:00: TABLET STRENGTH Rab dione Oral Tablet LOW 00 AM Physici an) ASPIRIN STRENG EDT ADULT LOW TH:308 STRENGTH:30 416 8416 gabapentin GABAPE 01/21/ CAPSULE 90 complet JACK PENTIN MEDGEN 100 MG Oral NTIN:3 2018 ed (Ammir Capsule 98913 12:00: Jolie GABAPENTIN: 00 AM Physici an) 317691 EDT CALCIUM-VIT 01/21/ TABLET 60 complet CALCIU M-NIALL MEDGEN QUIROZ 2018 ed MIN D (Ammir D:[id number] 12:00: Jolie 00 AM Physician) EDT Sertraline ZOLOFT 01/21/ TABLET 30 complet ZOLOF T MEDGEN 50 MG Oral :2018 ed (Ammir Tablet 1 12:00: Jolie [Zoloft] 00 AM Physician) ZOLOFT:2080 EDT 61 CALCIUM-VIT 01/21/ TABLET 60 complet CALCIU M-NIALL MEDGEN QUIROZ 2018 ed MIN D (Ammir D:[id number] 12:00: Jolie 00 AM Physician) EDT gabapentin GABAPE 01/21/ CAPSULE 90 complet JACK PENTIN MEDGEN 100 MG Oral NTIN:3 2018 ed (Ammir Capsule 75261 12:00: Jolie GABAPENTIN: 00 AM Physici an) 183867 EDT Sertraline ZOLOFT 01/21/ TABLET 30 complet ZOLOF T MEDGEN 50 MG Oral :2018 ed (Ammir Tablet 1 12:00: Jolie [Zoloft] 00 AM Physician) ZOLOFT:2080 EDT 61 Insurance Providers Payer name Policy type Policy ID Covered Covered alliance party's Policy P denia / Coverage alliance party ID relationship to Bess Inf ormation type bess MEDICAID [id number] SP [id number] [employer] [id number] SP [id number] MEDICARE [employer] FIRST [id number] CLAIMS Problems, Conditions, and Diagnoses Code Display Name Description Problem Type Effective Data Dates Source(s) D64.9 Anemia, unspecified ANEMIA, UNSPECIFIED Problem 020 MED[facility] (St 12:00:00 AM [facility], ) Z12.11 Encounter for ENCOUNTER FOR Problem 02/17/2020 MEDGEN ( St screening for SCREENING FOR 12:00:00 AM [facility] malignant neoplasm MALIGNANT NEOPLASM [facility], ) of colon OF COLON R10.10 Upper abdominal UPPER ABDOMINAL Problem 02/17/2020 MEDG EN (St pain, unspecified PAIN, UNSPECIFIED 12:00:00 AM [facility], ) R71.8 Other abnormality OTHER ABNORMALITY Problem 01/27/2020 MEDGEN (Ammir of red blood cells OF RED BLOOD CELLS 12:00:00 AM Jolie EDT Physician) R60.9 Edema, unspecified EDEMA, UNSPECIFIED Problem 0 MEDGEN (Ammir 12:00:00 AM Jolie EDT Physician) R60.9 Edema, unspecified EDEMA, UNSPECIFIED Problem 0 MEDGEN (Ammir 12:00:00 AM Jolie EDT Physician) B96.81 Helicobacter pylori HELICOBACTER PYLORI Problem 020 MEDGEN (Ammir [H. pylori] as the [H. PYLORI] THE 12:00:00 AM Jolie cause of diseases CAUSE OF DISEASES EDT Physician) classified CLASSIFIED elsewhere ELSEWHERE I83.90 Asymptomatic ASYMPTOMATIC Problem 12/21/2019 MEDGEN (Am corey varicose veins of VARICOSE VEINS OF 12:00:00 AM Jolie unspecified lower UNSPECIFIED LOWER EDT Physician) extremity EXTREMITY R10.9 Unspecified UNSPECIFIED Problem 12/21/2019 MEDGEN (Ammi r abdominal pain ABDOMINAL PAIN 12:00:00 AM Rabad i EDT Physician) B96.81 Helicobacter pylori HELICOBACTER PYLORI Problem MEDGEN (Ammir [H. pylori] as the [H. PYLORI] THE 12:00:00 AM Jolie cause of diseases CAUSE OF DISEASES EDT Physician) classified CLASSIFIED elsewhere ELSEWHERE I83.90 Asymptomatic ASYMPTOMATIC Problem 12/21/2019 MEDGEN ([facility]y varicose veins of VARICOSE VEINS OF 12:00:00 AM Jolie unspecified lower UNSPECIFIED LOWER EDT Physician) extremity EXTREMITY R10.9 Unspecified UNSPECIFIED Problem 12/21/2019 MEDGEN (Ammi r abdominal pain ABDOMINAL PAIN 12:00:00 AM Rabad i EDT Physician) R26.89 Other abnormalities OTHER ABNORMALITIES Problem 020 MEDGEN (Ammir of gait and OF GAIT AND 12:00:00 AM Jolie mobility MOBILITY EDT Physician) R26.89 Other abnormalities OTHER ABNORMALITIES Problem MEDGEN (Ammir of gait and OF GAIT AND 12:00:00 AM Jolie mobility MOBILITY EDT Physician) Z71.89 Other specified OTHER SPECIFIED Problem 09/16/2019 MEDG EN (Ammir counseling COUNSELING 12:00:00 AM Jolie EDT Physician) Z71.89 Other specified OTHER SPECIFIED Problem 09/16/2019 MEDG EN (Ammir counseling COUNSELING 12:00:00 AM Jolie EDT Physician) F32.9 Major depressive MAJOR DEPRESSIVE Problem 07/28/2019 ME DGEN (Ammir disorder, single DISORDER, SINGLE 12:00:00 AM R traci episode, EPISODE, EST Physician) unspecified UNSPECIFIED F32.9 Major depressive MAJOR DEPRESSIVE Problem 07/28/2019 ME DGEN (Ammir disorder, single DISORDER, SINGLE 12:00:00 AM R traci episode, EPISODE, EST Physician) unspecified UNSPECIFIED D50.9 Iron deficiency IRON DEFICIENCY Problem 06/16/2019 MEDG EN (Ammir anemia, unspecified ANEMIA, UNSPECIFIED 12:00:0 0 AM Jolie EST Physician) J11.1 Influenza due to INFLUENZA DUE TO Problem 06/16/2019 ME DGEN (Ammir unidentified UNIDENTIFIED 12:00:00 AM Jolie influenza virus INFLUENZA VIRUS EST Phys ician) with other WITH OTHER respiratory RESPIRATORY manifestations MANIFESTATIONS J01.90 Acute sinusitis, ACUTE SINUSITIS, Problem 06/16/2019 ME DGEN (Ammir unspecified UNSPECIFIED 12:00:00 AM Jolie EST Physician) 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 Problem 0 MEDGEN (Ammir (acquired) (ACQUIRED) 12:00:00 AM Jolie EST Physician) D50.9 Iron deficiency IRON DEFICIENCY Problem 06/16/2019 MEDG EN (Ammir anemia, unspecified ANEMIA, UNSPECIFIED 12:00:0 0 AM Jolie EST Physician) J11.1 Influenza due to INFLUENZA DUE TO Problem 06/16/2019 ME DGEN (Ammir unidentified UNIDENTIFIED 12:00:00 AM Jolie influenza virus INFLUENZA VIRUS EST Phys ician) with other WITH OTHER respiratory RESPIRATORY manifestations MANIFESTATIONS J01.90 Acute sinusitis, ACUTE SINUSITIS, Problem 06/16/2019 ME DGEN (Ammir unspecified UNSPECIFIED 12:00:00 AM Jolie EST Physician) 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 Problem 0 MEDGEN (Ammir (acquired) (ACQUIRED) 12:00:00 AM Jolie EST Physician) R63.0 Anorexia ANOREXIA Problem 04/28/2019 MEDGEN (Ammir 12:00:00 AM Jolie EST Physician) R63.0 Anorexia ANOREXIA Problem 04/28/2019 MEDGEN (Ammir 12:00:00 AM Jolie EST Physician) J30.9 Allergic rhinitis, ALLERGIC RHINITIS, Problem 9 MEDGEN (Ammir unspecified UNSPECIFIED 12:00:00 AM Jolie EST Physician) J20.9 Acute bronchitis, ACUTE BRONCHITIS, Problem 04/22/2019 MEDGEN (Ammir unspecified UNSPECIFIED 12:00:00 AM Jolie EST Physician) J30.9 Allergic rhinitis, ALLERGIC RHINITIS, Problem 9 MEDGEN (Ammir unspecified UNSPECIFIED 12:00:00 AM Jolie EST Physician) J20.9 Acute bronchitis, ACUTE BRONCHITIS, Problem 04/22/2019 MEDGEN (Ammir unspecified UNSPECIFIED 12:00:00 AM Jolie EST Physician) M48.05 Spinal stenosis, SPINAL STENOSIS, Problem 01/21/2019 ME DGEN (Ammir thoracolumbar THORACOLUMBAR 12:00:00 AM Jolie region REGION EDT Physician) M48.05 Spinal stenosis, SPINAL STENOSIS, Problem 01/21/2019 ME DGEN (Ammir thoracolumbar THORACOLUMBAR 12:00:00 AM Jolie region REGION EDT Physician) M54.16 Radiculopathy, RADICULOPATHY, Problem 12/22/2018 MEDGEN (Ammir lumbar region LUMBAR REGION 12:00:00 AM Jolie EDT Physician) M54.16 Radiculopathy, RADICULOPATHY, Problem 12/22/2018 MEDGEN (Ammir lumbar region LUMBAR REGION 12:00:00 AM Jolie EDT Physician) I83.813 Varicose veins of VARICOSE VEINS OF Problem 10/01/2018 MEDGEN (Ammir bilateral lower BILATERAL LOWER 12:00:00 AM Rab dione extremities with EXTREMITIES WITH EDT Ph ysician) pain PAIN I10 Essential (primary) ESSENTIAL (PRIMARY) Problem 019 MEDGEN (Ammir hypertension HYPERTENSION 12:00:00 AM Jolie EDT Physician) I83.813 Varicose veins of VARICOSE VEINS OF Problem 10/01/2018 MEDGEN (Ammir bilateral lower BILATERAL LOWER 12:00:00 AM Rab dione extremities with EXTREMITIES WITH EDT Ph ysician) pain PAIN I10 Essential (primary) ESSENTIAL (PRIMARY) Problem 019 MEDGEN (Ammir hypertension HYPERTENSION 12:00:00 AM Jolie EDT Physician) M54.5 Low back pain LOW BACK PAIN Problem 05/07/2018 MEDGEN ( Ammir 12:00:00 AM Jolie EST Physician) R32 Unspecified urinary UNSPECIFIED URINARY Problem 018 MEDGEN (Ammir incontinence INCONTINENCE 12:00:00 AM Jolie EST Physician) M54.5 Low back pain LOW BACK PAIN Problem 05/07/2018 MEDGEN ( Ammir 12:00:00 AM Jolie EST Physician) R32 Unspecified urinary UNSPECIFIED URINARY Problem 018 MEDGEN (Ammir incontinence INCONTINENCE 12:00:00 AM Jolie EST Physician) E11.59 Type 2 diabetes TYPE 2 DIABETES Problem 04/24/2018 MEDG EN (Ammir mellitus with other MELLITUS WITH OTHER 12:00:0 0 AM Jolie circulatory CIRCULATORY EST Physician) complications COMPLICATIONS E11.59 Type 2 diabetes TYPE 2 DIABETES Problem 04/24/2018 MEDG EN (Ammir mellitus with other MELLITUS WITH OTHER 12:00:0 0 AM Jolie circulatory CIRCULATORY EST Physician) complications COMPLICATIONS Z91.81 History of falling HISTORY OF FALLING Problem 8 MEDGEN (Ammir 12:00:00 AM Jolie EDT Physician) Z23 Encounter for ENCOUNTER FOR Problem 02/19/2018 MEDGEN ( Ammir immunization IMMUNIZATION 12:00:00 AM Jolie EDT Physician) G25.0 Essential tremor ESSENTIAL TREMOR Problem 02/19/2018 ME DGEN (Ammir 12:00:00 AM Jolie EDT Physician) Z13.89 Encounter for ENCOUNTER FOR Problem 02/19/2018 MEDGEN ( Ammir screening for other SCREENING FOR OTHER 12:00:0 0 AM Jolie disorder DISORDER EDT Physician) Z91.81 History of falling HISTORY OF FALLING Problem 8 MEDGEN (Ammir 12:00:00 AM Jolie EDT Physician) Z23 Encounter for ENCOUNTER FOR Problem 02/19/2018 MEDGEN ( Ammir immunization IMMUNIZATION 12:00:00 AM Jolie EDT Physician) G25.0 Essential tremor ESSENTIAL TREMOR Problem 02/19/2018 ME DGEN (Ammir 12:00:00 AM Jolie EDT Physician) Z13.89 Encounter for ENCOUNTER FOR Problem 02/19/2018 MEDGEN ( Ammir screening for other SCREENING FOR OTHER 12:00:0 0 AM Jolie disorder DISORDER EDT Physician) Z01.818 Encounter for other ENCOUNTER FOR OTHER Problem 018 MEDGEN (Ammir preprocedural PREPROCEDURAL 12:00:00 AM Jolie examination EXAMINATION EDT Physician) Z01.818 Encounter for other ENCOUNTER FOR OTHER Problem 018 MEDGEN (Ammir preprocedural PREPROCEDURAL 12:00:00 AM Jolie examination EXAMINATION EDT Physician) 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, NEUROPATHY, EDT Physician) unspecified UNSPECIFIED 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, NEUROPATHY, EDT Physician) unspecified UNSPECIFIED Z87.891 Personal history of PERSONAL HISTORY OF Problem 018 MEDGEN (Ammir nicotine dependence NICOTINE DEPENDENCE 12:00:0 0 AM Jolie EDT Physician) M81.0 Age-related AGE-RELATED Problem 10/28/2017 MEDGEN (Ammi r osteoporosis OSTEOPOROSIS 12:00:00 AM Jolie without current WITHOUT CURRENT EDT Phys ician) pathological PATHOLOGICAL fracture FRACTURE R26.81 Unsteadiness on UNSTEADINESS ON Problem 10/28/2017 MEDG EN (Ammir feet FEET 12:00:00 AM Jolie EDT Physician) K21.9 Gastro-esophageal GASTRO-ESOPHAGEAL Problem 10/28/2017 MEDGEN (Ammir reflux disease REFLUX DISEASE 12:00:00 AM Rabad i without esophagitis WITHOUT ESOPHAGITIS EDT Physician) E11.9 Type 2 diabetes TYPE 2 DIABETES Problem 10/28/2017 MEDG EN (Ammir mellitus without MELLITUS WITHOUT 12:00:00 AM R traci complications COMPLICATIONS EDT Physicia n) Z00.01 Encounter for ENCOUNTER FOR Problem 10/28/2017 MEDGEN ( Ammir general adult GENERAL ADULT 12:00:00 AM Jolie medical examination MEDICAL EXAMINATION EDT Physician) with abnormal WITH ABNORMAL findings FINDINGS R00.1 Bradycardia, BRADYCARDIA, Problem 10/28/2017 MEDGEN (Am corey unspecified UNSPECIFIED 12:00:00 AM Jolie EDT Physician) E03.9 Hypothyroidism, HYPOTHYROIDISM, Problem 10/28/2017 MEDG EN (Ammir unspecified UNSPECIFIED 12:00:00 AM Jolie EDT Physician) Z87.891 Personal history of PERSONAL HISTORY OF Problem 018 MEDGEN (Ammir nicotine dependence NICOTINE DEPENDENCE 12:00:0 0 AM Jolie EDT Physician) M81.0 Age-related AGE-RELATED Problem 10/28/2017 MEDGEN (Ammi r osteoporosis OSTEOPOROSIS 12:00:00 AM Jolie without current WITHOUT CURRENT EDT Phys ician) pathological PATHOLOGICAL fracture FRACTURE R26.81 Unsteadiness on UNSTEADINESS ON Problem 10/28/2017 MEDG EN (Ammir feet FEET 12:00:00 AM Jolie EDT Physician) K21.9 Gastro-esophageal GASTRO-ESOPHAGEAL Problem 10/28/2017 MEDGEN (Ammir reflux disease REFLUX DISEASE 12:00:00 AM Rabad i without esophagitis WITHOUT ESOPHAGITIS EDT Physician) E11.9 Type 2 diabetes TYPE 2 DIABETES Problem 10/28/2017 MEDG EN (Ammir mellitus without MELLITUS WITHOUT 12:00:00 AM R traci complications COMPLICATIONS EDT Physicia n) Z00.01 Encounter for ENCOUNTER FOR Problem 10/28/2017 MEDGEN ( Ammir general adult GENERAL ADULT 12:00:00 AM Jolie medical examination MEDICAL EXAMINATION EDT Physician) with abnormal WITH ABNORMAL findings FINDINGS R00.1 Bradycardia, BRADYCARDIA, Problem 10/28/2017 MEDGEN (Am corey unspecified UNSPECIFIED 12:00:00 AM Jolie EDT Physician) E03.9 Hypothyroidism, HYPOTHYROIDISM, Problem 10/28/2017 MEDG EN (Ammir unspecified UNSPECIFIED 12:00:00 AM Jolie EDT Physician) Surgeries/Procedures Procedure Description Date Indications Data Source(s) Documentation of current 02/17/2020 MED GEN ([facility] medications (procedure) 12:00:00 AM EDT SANJANA Chappell) Documentation of current 02/17/2020 MED [facility] ([facility] medications (procedure) 12:00:00 AM EDT SANJANA Chappell) Documentation of current 02/17/2020 MED [facility] ([facility] medications (procedure) 12:00:00 AM EDT SANJANA Chappell) BLOOD OCCULT PEROXIDASE 02/17/2020 MED[facility] EN ([facility] ACTV QUAL OTHER SOURCES 12:00:00 AM EDT M edical, PC) COLLECTION VENOUS BLOOD 02/17/2020 MEDG EN ([facility] VENIPUNCTURE 12:00:00 AM EDT Medical, PC) Documentation of current 01/18/2020 MED GEN (Ammir Jolie medications (procedure) 12:00:00 AM EDT P hysician) Documentation of current 01/18/2020 MED GEN (Ammir Jolie medications (procedure) 12:00:00 AM EDT P hysician) Documentation of current 01/18/2020 MED GEN (Ammir Jolie medications (procedure) 12:00:00 AM EDT P hysician) Documentation of current 01/18/2020 MED GEN (Ammir Jolie medications (procedure) 12:00:00 AM EDT P hysician) Documentation of current 01/18/2020 MED GEN (Ammir Jolie medications (procedure) 12:00:00 AM EDT P hysician) Medication Reconciliation 01/18/2020 ME DGEN (Ammir Jolie (procedure) 12:00:00 AM EDT Physician) Documentation of current 01/18/2020 MED GEN (Ammir Jolie medications (procedure) 12:00:00 AM EDT P hysician) Documentation of current 01/18/2020 MED GEN (Ammir Jolie medications (procedure) 12:00:00 AM EDT P hysician) Documentation of current 01/18/2020 MED GEN (Ammir Jolie medications (procedure) 12:00:00 AM EDT P hysician) Documentation of current 01/18/2020 MED GEN (Ammir Jolie medications (procedure) 12:00:00 AM EDT P hysician) Documentation of current 01/18/2020 MED GEN (Ammir Jolie medications (procedure) 12:00:00 AM EDT P hysician) Documentation of current 01/18/2020 MED GEN (Ammir Jolie medications (procedure) 12:00:00 AM EDT P hysician) Medication Reconciliation 01/18/2020 ME DGEN (Ammir Jolie (procedure) 12:00:00 AM EDT Physician) Documentation of current 01/18/2020 MED GEN (Ammir Jolie medications (procedure) 12:00:00 AM EDT P hysician) Documentation of current 12/21/2019 MED GEN (Ammir Jolie medications (procedure) 12:00:00 AM EDT P hysician) Documentation of current 12/21/2019 MED GEN (Ammir Jolie medications (procedure) 12:00:00 AM EDT P hysician) Documentation of current 12/21/2019 MED GEN (Ammir Jolie medications (procedure) 12:00:00 AM EDT P hysician) Documentation of current 12/21/2019 [facility] GEN (Ammir Jolie medications (procedure) 12:00:00 AM EDT P hysician) Documentation of current 12/21/2019 MED GEN (Ammir Jolie medications (procedure) 12:00:00 AM EDT P hysician) Documentation of current 12/21/2019 MED GEN (Ammir Jolie medications (procedure) 12:00:00 AM EDT P hysician) Documentation of current 12/21/2019 MED GEN (Ammir Jolie medications (procedure) 12:00:00 AM EDT P hysician) Medication Reconciliation 12/21/2019 ME DGEN (Ammir Jolie (procedure) 12:00:00 AM EDT Physician) Documentation of current 12/21/2019 MED GEN (Ammir Jolie medications (procedure) 12:00:00 AM EDT P hysician) Documentation of current 12/21/2019 [facility] (Ammir Jolie medications (procedure) 12:00:00 AM EDT P hysician) Documentation of current 12/21/2019 MED GEN (Ammir Jolie medications (procedure) 12:00:00 AM EDT P hysician) Documentation of current 12/21/2019 MED GEN (Ammir Jolie medications (procedure) 12:00:00 AM EDT P hysician) Documentation of current 12/21/2019 MED GEN (Ammir Jolie medications (procedure) 12:00:00 AM EDT P hysician) Documentation of current 12/21/2019 MED GEN (Ammir Jolie medications (procedure) 12:00:00 AM EDT P hysician) Documentation of current 12/21/2019 [facility] (Ammir Jolie medications (procedure) 12:00:00 AM EDT P hysician) Documentation of current 12/21/2019 MED GEN (Ammir Jolie medications (procedure) 12:00:00 AM EDT P hysician) Medication Reconciliation 12/21/2019 ME DGEN (Ammir Jolie (procedure) 12:00:00 AM EDT Physician) Documentation of current 12/21/2019 MED GEN (Ammir Jolie medications (procedure) 12:00:00 AM EDT P hysician) Documentation of current 07/28/2019 [facility] GEN (Ammir Jolie medications (procedure) 12:00:00 AM EST P hysician) Documentation of current 07/28/2019 [facility] (Ammir Jolie medications (procedure) 12:00:00 AM EST P hysician) Documentation of current 07/28/2019 MED GEN (Ammir Jolie medications (procedure) 12:00:00 AM EST P hysician) Documentation of current 07/28/2019 [facility] (Ammir Jolie medications (procedure) 12:00:00 AM EST P hysician) Medication Reconciliation 07/28/2019 ME DGEN (Ammir Jolie (procedure) 12:00:00 AM EST Physician) Documentation of current 07/28/2019 MED GEN (Ammir Jolie medications (procedure) 12:00:00 AM EST P hysician) Documentation of current 07/28/2019 MED GEN (Ammir Jolie medications (procedure) 12:00:00 AM EST P hysician) Documentation of current 07/28/2019 [facility] GEN (Ammir Jolie medications (procedure) 12:00:00 AM EST P hysician) Documentation of current 07/28/2019 MED GEN (Ammir Jolie medications (procedure) 12:00:00 AM EST P hysician) Medication Reconciliation 07/28/2019 ME DGEN (Ammir Jolie (procedure) 12:00:00 AM EST Physician) Documentation of current 12/22/2018 MED GEN (Ammir Jolie medications (procedure) 12:00:00 AM EDT P hysician) Documentation of current 12/22/2018 MED GEN (Ammir Jolie medications (procedure) 12:00:00 AM EDT P hysician) Documentation of current 12/22/2018 [facility] GEN (Ammir Jolie medications (procedure) 12:00:00 AM EDT P hysician) Documentation of current 12/22/2018 MED GEN (Ammir Jolie medications (procedure) 12:00:00 AM EDT P hysician) Documentation of current 12/22/2018 MED GEN (Ammir Jolie medications (procedure) 12:00:00 AM EDT P hysician) Documentation of current 12/22/2018 MED GEN (Ammir Jolie medications (procedure) 12:00:00 AM EDT P hysician) Documentation of current 12/22/2018 MED GEN (Ammir Jolie medications (procedure) 12:00:00 AM EDT P hysician) Documentation of current 12/22/2018 MED GEN (Ammir Jolie medications (procedure) 12:00:00 AM EDT P hysician) Documentation of current 12/22/2018 MED GEN (Ammir Jolie medications (procedure) 12:00:00 AM EDT P hysician) Documentation of current 12/22/2018 MED GEN (Ammir Jolie medications (procedure) 12:00:00 AM EDT P hysician) Documentation of current 12/22/2018 MED GEN (Ammir Jolie medications (procedure) 12:00:00 AM EDT P hysician) Documentation of current 12/22/2018 MED GEN (Ammir Jolie medications (procedure) 12:00:00 AM EDT P hysician) Documentation of current 05/07/2018 MED GEN (Ammir Jolie medications (procedure) 12:00:00 AM EST P hysician) Documentation of current 05/07/2018 MED GEN (Ammir Jolie medications (procedure) 12:00:00 AM EST P hysician) Documentation of current 05/07/2018 MED GEN (Ammir Jolie medications (procedure) 12:00:00 AM EST P hysician) Documentation of current 05/07/2018 MED GEN (Ammir Jolie medications (procedure) 12:00:00 AM EST P hysician) Documentation of current 05/07/2018 MED GEN (Ammir Jolie medications (procedure) 12:00:00 AM EST P hysician) Documentation of current 05/07/2018 MED GEN (Ammir Jolie medications (procedure) 12:00:00 AM EST P hysician) Documentation of current 05/07/2018 MED GEN (Ammir Jolie medications (procedure) 12:00:00 AM EST P hysician) Documentation of current 05/07/2018 MED GEN (Ammir Jolie medications (procedure) 12:00:00 AM EST P hysician) Documentation of current 05/07/2018 MED GEN (Ammir Jolie medications (procedure) 12:00:00 AM EST P hysician) Documentation of current 05/07/2018 MED GEN (Ammir Jolie medications (procedure) 12:00:00 AM EST P hysician) Documentation of current 02/19/2018 MED GEN (Ammir Jolie medications (procedure) 12:00:00 AM EDT P hysician) Documentation of current 02/19/2018 MED GEN (Ammir Jolie medications (procedure) 12:00:00 AM EDT P hysician) Documentation of current 02/19/2018 MED GEN (Ammir Jolie medications (procedure) 12:00:00 AM EDT P hysician) Documentation of current 02/19/2018 MED GEN (Ammir Jolie medications (procedure) 12:00:00 AM EDT P hysician) Documentation of current 02/19/2018 MED GEN (Ammir Jolie medications (procedure) 12:00:00 AM EDT P hysician) Documentation of current 02/19/2018 MED GEN (Ammir Jolie medications (procedure) 12:00:00 AM EDT P hysician) Documentation of current 02/19/2018 MED GEN (Ammir Jolie medications (procedure) 12:00:00 AM EDT P hysician) Documentation of current 02/19/2018 MED GEN (Ammir Jolie medications (procedure) 12:00:00 AM EDT P hysician) Documentation of current 02/19/2018 MED GEN (Ammir Jolie medications (procedure) 12:00:00 AM EDT P hysician) Documentation of current 02/19/2018 MED GEN (Ammir Jolie medications (procedure) 12:00:00 AM EDT P hysician) Documentation of current 02/19/2018 MED GEN (Ammir Jolie medications (procedure) 12:00:00 AM EDT P hysician) Documentation of current 02/19/2018 MED GEN (Ammir Jolie medications (procedure) 12:00:00 AM EDT P hysician) Documentation of current 02/19/2018 MED GEN (Ammir Jolie medications (procedure) 12:00:00 AM EDT P hysician) Documentation of current 02/19/2018 MED GEN (Ammir Jolie medications (procedure) 12:00:00 AM EDT P hysician) Documentation of current 02/19/2018 MED GEN (Ammir Jolie medications (procedure) 12:00:00 AM EDT P hysician) Documentation of current 02/19/2018 MED GEN (Ammir Jolie medications (procedure) 12:00:00 AM EDT P hysician) Documentation of current 02/19/2018 MED GEN (Ammir Jolie medications (procedure) 12:00:00 AM EDT P hysician) Documentation of current 02/19/2018 MED GEN (Ammir Jolie medications (procedure) 12:00:00 AM EDT P hysician) Documentation of current 02/19/2018 MED GEN (Ammir Jolie medications (procedure) 12:00:00 AM EDT P hysician) Documentation of current 02/19/2018 MED GEN (Ammir Jolie medications (procedure) 12:00:00 AM EDT P hysician) Documentation of current 02/19/2018 MED GEN (Ammir Jolie medications (procedure) 12:00:00 AM EDT P hysician) Documentation of current 02/19/2018 MED GEN (Ammir Jolie medications (procedure) 12:00:00 AM EDT P hysician) Documentation of current 12/04/2017 MED GEN (Ammir Jolie medications (procedure) 12:00:00 AM EDT P hysician) Documentation of current 12/04/2017 MED GEN (Ammir Jolie medications (procedure) 12:00:00 AM EDT P hysician) Documentation of current 12/04/2017 MED GEN (Ammir Jolie medications (procedure) 12:00:00 AM EDT P hysician) Documentation of current 12/04/2017 MED GEN (Ammir Jolie medications (procedure) 12:00:00 AM EDT P hysician) Documentation of current 12/04/2017 MED GEN (Ammir Jolie medications (procedure) 12:00:00 AM EDT P hysician) Documentation of current 12/04/2017 MED GEN (Ammir Jolie medications (procedure) 12:00:00 AM EDT P hysician) Documentation of current 12/04/2017 MED GEN (Ammir Jolie medications (procedure) 12:00:00 AM EDT P hysician) Documentation of current 12/04/2017 MED GEN (Ammir Jolie medications (procedure) 12:00:00 AM EDT P hysician) Documentation of current 12/04/2017 MED GEN (Ammir Jolie medications (procedure) 12:00:00 AM EDT P hysician) Documentation of current 12/04/2017 MED GEN (Ammir Jolie medications (procedure) 12:00:00 AM EDT P hysician) Documentation of current 12/04/2017 MED GEN (Ammir Jolie medications (procedure) 12:00:00 AM EDT P hysician) Documentation of current 12/04/2017 MED GEN (Ammir Jolie medications (procedure) 12:00:00 AM EDT P hysician) Documentation of current 12/04/2017 MED GEN (Ammir Jolie medications (procedure) 12:00:00 AM EDT P hysician) Documentation of current 12/04/2017 MED GEN (Ammir Jolie medications (procedure) 12:00:00 AM EDT P hysician) Documentation of current 12/04/2017 MED GEN (Ammir Jolie medications (procedure) 12:00:00 AM EDT P hysician) Documentation of current 12/04/2017 MED GEN (Ammir Jloie medications (procedure) 12:00:00 AM EDT P hysician) Documentation of current 12/04/2017 MED GEN (Ammir Jolie medications (procedure) 12:00:00 AM EDT P hysician) Documentation of current 12/04/2017 MED GEN (Ammir Jolie medications (procedure) 12:00:00 AM EDT P hysician) Documentation of current 12/04/2017 MED GEN (Ammir Jolie medications (procedure) 12:00:00 AM EDT P hysician) Documentation of current 12/04/2017 MED GEN (Ammir Jolie medications (procedure) 12:00:00 AM EDT P hysician) Documentation of current 12/04/2017 MED GEN (Ammir Jolie medications (procedure) 12:00:00 AM EDT P hysician) Documentation of current 12/04/2017 MED GEN (Ammir Jolie medications (procedure) 12:00:00 AM EDT P hysician) Documentation of current 10/28/2017 MED GEN (Ammir Jolie medications (procedure) 12:00:00 AM EDT P hysician) Documentation of current 10/28/2017 MED GEN (Ammir Jolie medications (procedure) 12:00:00 AM EDT P hysician) Results ID Date Data Source [id number] 02/21/2020 12:39:00 PM EDT [facility] Name Value Range Interpretation Description Data Sup porting Code Source(s) Document(s ) SARS [facility] coronavirus 2 RNA This lab was ordered by [facility] and reported by [facility]. ID Date Data Source [id number] 01/18/2020 12:00:00 AM EDT [facility] (Ammir Jolie Physician) Name Value Range Interpretation Description Data Sup porting Code Source(s) Document(s ) BNP, B-TYPE 36.9 Normal (applies MEDGEN NATRIURETIC pg/mL to non-numeric (Ammir results) Jolie Physician) ID Date Data Source [id number] 01/18/2020 12:00:00 AM EDT [facility] (Ammir Jolie Physician) Name Value Range Interpretation Description Data Sup porting Code Source(s) Document(s ) WBC 11.1 Above high normal MEDGEN 10(3)/uL (Ammir Jolie Physician) RBC 3.1 Below low normal [facility] 10(6)/uL (Ammir Jolie Physician) Hemoglobin 9.5 g/dL Below low normal [facility] [Mass/volume] (Ammir in Mixed venous Jolie blood by Physician) Oximetry Hematocrit 28.7 % Below low normal [facility] [Pure volume (Ammir fraction] of Jolie Blood by Physician) Automated count MCV 92.3 fL Normal (applies MEDGEN to non-numeric (Ammir results) Jolie Physician) MCH 31 pg Normal (applies [facility] to non-numeric (Ammir results) Jolie Physician) MCHC 33 g/dL Normal (applies [facility] to non-numeric (Ammir results) Jolie Physician) RDWSD 43.1 fL Normal (applies [facility] to non-numeric (Ammir results) Jolie Physician) RDWCV 12.9 % Normal (applies [facility]GEN to non-numeric (Ammir results) Jolie Physician) MPV 11.1 fL Normal (applies [facility] to non-numeric (Ammir results) Jolie Physician) Platelet Count 366 Normal (applies [facility] 10(3)/uL to non-numeric (Ammir results) Jolie Physician) Neutrophil Abs 6.17 Normal (applies [facility]GEN 10(3)/uL to non-numeric (Ammir results) Jolie Physician) Lymphocyte Abs 2.97 Normal (applies [facility] 10(3)/uL to non-numeric (Ammir results) Jolie Physician) Monocyte Abs 1.15 Above high normal [facility] 10(3)/uL (Ammir Jolie Physician) Eosinophil Abs 0.71 Above high normal [facility] 10(3)/uL (Ammir Jolie Physician) Basophil Abs 0.06 Normal (applies [facility]GEN 10(3)/uL to non-numeric (Ammir results) Jolie Physician) Immature 0.06 Normal (applies MEDGEN Granulocyte Abs 10(3)/uL to non-numeric (Ammir results) Jolie Physician) Neutrophil % 55.60 % Normal (applies [facility]GEN to non-numeric (Ammir results) Jolie Physician) Lymphocyte % 27 % Normal (applies [facility]GEN to non-numeric (Ammir results) Jolie Physician) Monocyte % 10.3 % Normal (applies [facility] to non-numeric (Ammir results) Jolie Physician) Eosinophil % 6.4 % Normal (applies [facility]GEN to non-numeric (Ammir results) Jolie Physician) Basophil % 0.5 % Normal (applies [facility] to non-numeric (Ammir results) Jolie Physician) Immature 0.50 % Normal (applies [facility]GEN Granulocyte % to non-numeric (Ammir results) Jolie Physician) NRBC % 0.0 % Normal (applies [facility]GEN to non-numeric (Ammir results) Jolie Physician) NRBC Abs 0.00 Normal (applies MEDGEN 10(3)/uL to non-numeric (Ammir results) Jolie Physician) ID Date Data Source [id number] 01/18/2020 12:00:00 AM EDT [facility] (Ammir Jolie Physician) Name Value Range Interpretation Description Data Sup porting Code Source(s) Document(s ) GLUCOSE 107 Normal (applies MEDGEN NONFASTING,SERUM mg/dL to non-numeric (Ammir results) Jolie Physician) SODIUM, SERUM 139 Normal (applies [facility] mEq/L to non-numeric (Ammir results) Jolie Physician) POTASSIUM, SERUM 5.1 Normal (applies [facility] mEq/L to non-numeric (Ammir results) Jolie Physician) CHLORIDE, SERUM 106 Normal (applies [facility] mEq/L to non-numeric (Ammir results) Jolie Physician) Carbon dioxide 25 mEq/L Normal (applies [facility] [VFr/PPres] in to non-numeric (Ammir Gas delivery results) Jolie system Physician) Anion gap in 13.1 Normal (applies [facility] Body fluid mEq/L to non-numeric (Ammir results) Jolie Physician) BLOOD UREA 28 mg/dL Above high normal [facility] NITROGEN (Ammir Jloie Physician) CREATININE, 0.90 Normal (applies [facility] SERUM mg/dL to non-numeric (Ammir results) Jolie Physician) BUN/CREATININE 31.11 Above high normal [facility] RATIO (Ammir Jolie Physician) CALCIUM, SERUM 9.3 Normal (applies [facility] mg/dL to non-numeric (Ammir results) Jolie Physician) TOTAL PROTEIN 7.3 g/dL Normal (applies [facility] to non-numeric (Ammir results) Jolie Physician) Microalbumin 3.8 g/dL Normal (applies [facility] [Mass/time] in to non-numeric (Ammir Urine collected results) Jolie for unspecified Physician) duration Globulin 3.5 gldl Normal (applies [facility] [Mass/time] in to non-numeric (Ammir 24 hour Urine results) Jolie Physician) A/G RATIO 1.09 Normal (applies [facility] g/dl to non-numeric (Ammir results) Jolie Physician) BILIRUBIN, TOTAL 0.1 Below low normal [facility] mg/dL (Ammir Jolie Physician) ALKALINE 80 U/L Normal (applies [facility] PHOSPHATASE, ALP to non-numeric (Ammir results) Jolie Physician) ALT (SGPT) 33 U/L Normal (applies [facility] to non-numeric (Ammir results) Jolie Physician) EGFR NON AFR 64 Normal (applies [facility] DOMINICAN mL/min/1 to non-numeric (Ammir .73m2 results) Jolie Physician) AST 49 U/L Above high normal [facility] (Ammir Jolie Physician) EGFR AFR 78 Normal (applies [facility] DOMINICAN mL/min/1 to non-numeric (Ammir .73m2 results) Jolie Physician) ID Date Data Source [id number] 10/22/2019 12:00:00 AM EDT [facility] (Ammir Jolie Physician) Name Value Range Interpretation Description Data Sup porting Code Source(s) Document(s ) GLUCOSE UA NEGATIVE Normal (applies [facility] to non-numeric (Ammir results) Jolie Physician) BILIRUBIN, TOTAL NEGATIVE Normal (applies [facility] to non-numeric (Ammir results) [facility] Physician) Ketones NEGATIVE Normal (applies [facility] [Presence] in to non-numeric (Ammir Blood by Tablet results) [facility] Physician) Blood [Presence] NEGATIVE Normal (applies [facility] in Urine by to non-numeric (Ammir Visual results) Jolie Physician) Specific gravity 1.015 SG Normal (applies [facility] of Pericardial units to non-numeric (Ammir fluid by results) [facility] Refractometry Physician) pH of Lower 6 Ph units Normal (applies [facility] respiratory to non-numeric (Ammir specimen results) [facility] Physician) Protein NEGATIVE Normal (applies [facility] [Mass/volume] in to non-numeric (Ammir Lower results) [facility] respiratory Physician) specimen Urobilinogen 0-2.0 Normal (applies [facility] [Presence] in to non-numeric (Ammir Urine by results) [facility] Automated test Physician) strip Nitrite NEGATIVE Normal (applies [facility] [Presence] in to non-numeric (Ammir Urine by Test results) Jolie strip Physician) Leukocyte NEGATIVE Normal (applies [facility] esterase to non-numeric (Ammir [Presence] in results) Jolie Body fluid by Physician) Automated test strip Color of YELLOW Normal (applies [facility] Peritoneal to non-numeric (Ammir dialysis fluid results) Jolie Physician) TRANSPARENCY CLOUDY Abnormal MEDGEN (applies to (Ammir non-numeric Jolie results) Physician) RBC`S 0-4 Normal (applies [facility] to non-numeric (Ammir results) Jolie Physician) SQUAMOUS FEW Normal (applies [facility] EPITHELIAL to non-numeric (Ammir results) Jolie Physician) WBC`S 0-5 Normal (applies [facility] to non-numeric (Ammir results) Jolie Physician) Hyaline Cast 0-2 Normal (applies [facility] to non-numeric (Ammir results) Jolie Physician) ID Date Data Source [id number] 10/22/2019 12:00:00 AM EDT [facility] (Ammir Jolie Physician) Name Value Range Interpretation Description Data Sup porting Code Source(s) Document(s ) TSH,3RD 3.89 Normal (applies to [facility] GENERATION uIU/mL non-numeric (Ammir results) Jolie Physician) T4 FREE, 1.06 Normal (applies to [facility] THYROXINE ng/dL non-numeric (Ammir results) Jolie Physician) ID Date Data Source [id number] 10/22/2019 12:00:00 AM EDT [facility] (Ammir Jolie Physician) Name Value Range Interpretation Description Data Sup porting Code Source(s) Document(s ) Ferritin 15.8 Normal (applies to [facility] (Amm ir [Interpretat ng/mL non-numeric Jolie ion] in results) Physician) Blood ID Date Data Source [id number] 10/22/2019 12:00:00 AM EDT [facility] (Ammir Jolie Physician) Name Value Range Interpretation Description Data Sup porting Code Source(s) Document(s ) Transferrin 269 mg/dL Normal (applies [facility] [Mass/time] in to non-numeric (Ammir 24 hour Urine results) Jolie Physician) TIBC 377.2 Normal (applies [facility] ug/dL to non-numeric (Ammir results) Jolie Physician) UIBC 289.2 Normal (applies [facility] ug/dL to non-numeric (Ammir results) Jolie Physician) %SATURATION 23.3 % Normal (applies [facility] to non-numeric (Ammir results) Jolie Physician) ID Date Data Source [id number] 10/22/2019 12:00:00 AM EDT [facility] (Ammir Jolie Physician) Name Value Range Interpretation Description Data Sup porting Code Source(s) Document(s ) FOLATE SERUM 114.3 Normal (applies to [facility] ( Ammir ng/mL non-numeric Jolie results) Physician) VITAMIN B12 1980 Above high normal [facility] (Am corey pg/mL Jolie Physician) ID Date Data Source [id number] 10/22/2019 12:00:00 AM EDT [facility] (Ammir Jolie Physician) Name Value Range Interpretation Description Data Sup porting Code Source(s) Document(s ) MICROALBUMIN 0.3 Normal (applies [facility] URINE mg/dL to non-numeric (Ammir results) Jolie Physician) CREATININE, 55 mg/dL Normal (applies [facility] URINE to non-numeric (Ammir results) Jolie Physician) MICROALBUMIN/CRE 5.5 mg/g Normal (applies [facility] ATININ RATIO creat to non-numeric (Ammir results) Jolie Physician) ID Date Data Source [id number] 10/22/2019 12:00:00 AM EDT [facility] (Ammir Jolie Physician) Name Value Range Interpretation Description Data Sup porting Code Source(s) Document(s ) VITAMIN D 24.59 Below low normal [facility] (Ammir 25-HYDROXY ng/mL Jolie Physician) ID Date Data Source [id number] 10/22/2019 12:00:00 AM EDT [facility] (Ammir Jolie Physician) Name Value Range Interpretation Code Description Data Supporting Source(s) Document(s ) H.PYLORI,UR Detected Abnormal (applies [facility] (Am corey EA BREATH to non-numeric Jolie TEST results) Physician) ID Date Data Source [id number] 10/22/2019 12:00:00 AM EDT [facility] (Ammir Jolie Physician) Name Value Range Interpretation Code Description Data Jeny rce(s) Supporting Document(s ) IRON, 88 ug/dL Normal (applies to [facility] (Amm ir TOTAL non-numeric Jolie results) Physician) ID Date Data Source [id number] 10/22/2019 12:00:00 AM EDT [facility] (Ammir Jolie Physician) Name Value Range Interpretation Description Data Sup porting Code Source(s) Document(s ) WBC 9.1 Normal (applies [facility] 10(3)/uL to non-numeric (Ammir results) Jolie Physician) RBC 3.3 Below low normal [facility] 10(6)/uL (Ammir Jolie Physician) Hemoglobin 10.5 g/dL Below low normal [facility] [Mass/volume] (Ammir in Mixed venous Jolie blood by Physician) Oximetry MCV 94.3 fL Normal (applies [facility] to non-numeric (Ammir results) Jolie Physician) Hematocrit 31.4 % Below low normal [facility] [Pure volume (Ammir fraction] of Jolie Blood by Physician) Automated count MCH 32 pg Normal (applies [facility] to non-numeric (Ammir results) Jolie Physician) MCHC 33 g/dL Normal (applies [facility] to non-numeric (Ammir results) Jolie Physician) RDWSD 41.4 fL Normal (applies [facility] to non-numeric (Ammir results) Jolie Physician) RDWCV 12.2 % Normal (applies [facility] to non-numeric (Ammir results) Jolie Physician) Platelet Count 258 Normal (applies [facility] 10(3)/uL to non-numeric (Ammir results) Jolie Physician) MPV 11.5 fL Normal (applies [facility] to non-numeric (Ammir results) Jolie Physician) Neutrophil Abs 4.77 Normal (applies [facility] 10(3)/uL to non-numeric (Ammir results) Jolie Physician) Lymphocyte Abs 2.57 Normal (applies [facility] 10(3)/uL to non-numeric (Ammir results) Jolie Physician) Monocyte Abs 1.11 Above high normal [facility] 10(3)/uL (Ammir Jolie Physician) Eosinophil Abs 0.59 Above high normal [facility] 10(3)/uL (Ammir Jolie Physician) Basophil Abs 0.05 Normal (applies [facility] 10(3)/uL to non-numeric (Ammir results) Jolie Physician) Immature 0.05 Normal (applies [facility] Granulocyte Abs 10(3)/uL to non-numeric (Ammir results) Jolie Physician) Neutrophil % 52.40 % Normal (applies [facility] to non-numeric (Ammir results) Jolie Physician) Lymphocyte % 28 % Normal (applies [facility] to non-numeric (Ammir results) [place] Physician) Monocyte % 12.2 % Normal (applies [facility] to non-numeric (Ammir results) Jolie Physician) Eosinophil % 6.5 % Normal (applies [facility] to non-numeric (Ammir results) Jolie Physician) Basophil % 0.6 % Normal (applies [facility] to non-numeric (Ammir results) Jolie Physician) Immature 0.60 % Normal (applies [facility] Granulocyte % to non-numeric (Ammir results) Jolie Physician) NRBC % 0.0 % Normal (applies [facility] to non-numeric (Ammir results) Jolie Physician) NRBC Abs 0.00 Normal (applies [facility] 10(3)/uL to non-numeric (Ammir results) Jolie Physician) ID Date Data Source [id number] 10/22/2019 12:00:00 AM EDT [facility] (Ammir Jolie Physician) Name Value Range Interpretation Description Data Sup porting Code Source(s) Document(s ) Hemoglobin A1c 5.7 % Above high normal [facility] (Ammir in Blood Jolie Physician) ID Date Data Source [id number] 10/22/2019 12:00:00 AM EDT [facility] (Ammir Jolie Physician) Name Value Range Interpretation Description Data Sup porting Code Source(s) Document(s ) GLUCOSE 108 Normal (applies [facility] NONFASTING,SERUM mg/dL to non-numeric (Ammir results) Jolie Physician) SODIUM, SERUM 140 Normal (applies [facility] mEq/L to non-numeric (Ammir results) Jolie Physician) POTASSIUM, SERUM 4.7 Normal (applies [facility] mEq/L to non-numeric (Ammir results) Jolie Physician) CHLORIDE, SERUM 105 Normal (applies [facility] mEq/L to non-numeric (Ammir results) Jolie Physician) Carbon dioxide 31 mEq/L Normal (applies [facility] [VFr/PPres] in to non-numeric (Ammir Gas delivery results) Jolie system Physician) Anion gap in 8.7 Normal (applies [facility] Body fluid mEq/L to non-numeric (Ammir results) Jolie Physician) BLOOD UREA 34 mg/dL Above high normal [facility] NITROGEN (Ammir Jolie Physician) CREATININE, 1.00 Above high normal [facility] SERUM mg/dL (Ammir Jolie Physician) BUN/CREATININE 34.00 Above high normal [facility] RATIO (Ammir Jolie Physician) CALCIUM, SERUM 9.5 Normal (applies [facility] mg/dL to non-numeric (Ammir results) Jolie Physician) TOTAL PROTEIN 7.0 g/dL Normal (applies [facility] to non-numeric (Ammir results) Jolie Physician) Microalbumin 3.9 g/dL Normal (applies [facility] [Mass/time] in to non-numeric (Ammir Urine collected results) Jolie for unspecified Physician) duration Globulin 3.1 gldl Normal (applies [facility] [Mass/time] in to non-numeric (Ammir 24 hour Urine results) [facility] Physician) A/G RATIO 1.26 Normal (applies [facility] g/dl to non-numeric (Ammir results) Jolie Physician) BILIRUBIN, TOTAL 0.1 Below low normal [facility] mg/dL (Amlar Jolie Physician) ALKALINE 77 U/L Normal (applies [facility] PHOSPHATASE, ALP to non-numeric (Ammir results) [facility] Physician) ALT (SGPT) 27 U/L Normal (applies [facility] to non-numeric (Ammir results) Jolie Physician) AST 32 U/L Normal (applies [facility] to non-numeric (Ammir results) [facility] Physician) EGFR NON AFR 57 Below low normal [facility] DOMINICAN mL/min/1 (Ammir .73m2 Jolie Physician) EGFR AFR 69 Normal (applies [facility] DOMINICAN mL/min/1 to non-numeric (Ammir .73m2 results) [facility] Physician) ID Date Data Source [id number] 10/22/2019 12:00:00 AM EDT [facility] Phys[facility]) Name Value Range Interpretation Description Data Sup porting Code Source(s) Document(s ) GLUCOSE UA NEGATIVE Normal (applies [facility] to non-numeric (Ammir results) [facility] Physician) BILIRUBIN, TOTAL NEGATIVE Normal (applies [facility] to non-numeric (Ammir results) [facility] Physician) Ketones NEGATIVE Normal (applies [facility] [Presence] in to non-numeric (Ammir Blood by Tablet results) Jolie Physician) Specific gravity 1.015 SG Normal (applies [facility] of Pericardial units to non-numeric (Ammir fluid by results) Jolie Refractometry Physician) Blood [Presence] NEGATIVE Normal (applies [facility] in Urine by to non-numeric (Ammir Visual results) Jolie Physician) Protein NEGATIVE Normal (applies [facility] [Mass/volume] in to non-numeric (Ammir Lower results) Jolie respiratory Physician) specimen pH of Lower 6 Ph units Normal (applies [facility] respiratory to non-numeric (Ammir specimen results) Jolie Physician) Urobilinogen 0-2.0 Normal (applies [facility] [Presence] in to non-numeric (Ammir Urine by results) Jolie Automated test Physician) strip Leukocyte NEGATIVE Normal (applies [facility] esterase to non-numeric (Ammir [Presence] in results) Jolie Body fluid by Physician) Automated test strip Nitrite NEGATIVE Normal (applies [facility] [Presence] in to non-numeric (Ammir Urine by Test results) Jolie strip Physician) Color of YELLOW Normal (applies [facility] Peritoneal to non-numeric (Ammir dialysis fluid results) Jolie Physician) TRANSPARENCY CLOUDY Abnormal [facility] (applies to (Ammir non-numeric Jolie results) Physician) WBC`S 0-5 Normal (applies [facility] to non-numeric (Ammir results) Jolie Physician) RBC`S 0-4 Normal (applies [facility] to non-numeric (Ammir results) Jolie Physician) SQUAMOUS FEW Normal (applies [facility] EPITHELIAL to non-numeric (Ammir results) Jolie Physician) Hyaline Cast 0-2 Normal (applies [facility] to non-numeric (Ammir results) Jolie Physician) ID Date Data Source [id number] 10/22/2019 12:00:00 AM EDT [facility] (Ammir Jolie Physician) Name Value Range Interpretation Description Data Sup porting Code Source(s) Document(s ) TSH,3RD 3.89 Normal (applies to [facility] GENERATION uIU/mL non-numeric (Ammir results) Jolie Physician) T4 FREE, 1.06 Normal (applies to [facility] THYROXINE ng/dL non-numeric (Ammir results) Jolie Physician) ID Date Data Source [id number] 10/22/2019 12:00:00 AM EDT [facility] (Ammir Jolie Physician) Name Value Range Interpretation Description Data Sup porting Code Source(s) Document(s ) Ferritin 15.8 Normal (applies to [facility] (Amm ir [Interpretat ng/mL non-numeric Jolie ion] in results) Physician) Blood ID Date Data Source [id number] 10/22/2019 12:00:00 AM EDT [facility] (Ammir Jolie Physician) Name Value Range Interpretation Description Data Sup porting Code Source(s) Document(s ) Transferrin 269 mg/dL Normal (applies [facility] [Mass/time] in to non-numeric (Ammir 24 hour Urine results) Jolie Physician) TIBC 377.2 Normal (applies [facility] ug/dL to non-numeric (Ammir results) Jolie Physician) UIBC 289.2 Normal (applies [facility] ug/dL to non-numeric (Ammir results) Jolie Physician) %SATURATION 23.3 % Normal (applies [facility] to non-numeric (Ammir results) Jolie Physician) ID Date Data Source [id number] 10/22/2019 12:00:00 AM EDT [facility] (Ammir Jolie Physician) Name Value Range Interpretation Description Data Sup porting Code Source(s) Document(s ) FOLATE SERUM 114.3 Normal (applies to [facility] ( Ammir ng/mL non-numeric Jolie results) Physician) VITAMIN B12 1980 Above high normal [facility] (Am corey pg/mL Jolie Physician) ID Date Data Source [id number] 10/22/2019 12:00:00 AM EDT [facility] (Ammir Jolie Physician) Name Value Range Interpretation Description Data Sup porting Code Source(s) Document(s ) MICROALBUMIN 0.3 Normal (applies [facility] URINE mg/dL to non-numeric (Ammir results) Jolie Physician) CREATININE, 55 mg/dL Normal (applies [facility] URINE to non-numeric (Ammir results) Jolie Physician) MICROALBUMIN/CRE 5.5 mg/g Normal (applies [facility] ATININ RATIO creat to non-numeric (Ammir results) Jolie Physician) ID Date Data Source [id number] 10/22/2019 12:00:00 AM EDT [facility] (Ammir Jolie Physician) Name Value Range Interpretation Description Data Sup porting Code Source(s) Document(s ) VITAMIN D 24.59 Below low normal [facility] (Ammir 25-HYDROXY ng/mL Jolie Physician) ID Date Data Source [id number] 10/22/2019 12:00:00 AM EDT [facility] (Ammir Jolie Physician) Name Value Range Interpretation Code Description Data Supporting Source(s) Document(s ) H.PYLORI,UR Detected Abnormal (applies [facility] (Am corey EA BREATH to non-numeric Jolie TEST results) Physician) ID Date Data Source [id number] 10/22/2019 12:00:00 AM EDT [facility] (Ammir Jolie Physician) Name Value Range Interpretation Code Description Data Jeny rce(s) Supporting Document(s ) IRON, 88 ug/dL Normal (applies to [facility] (Amm ir TOTAL non-numeric Jolie results) Physician) ID Date Data Source [id number] 10/22/2019 12:00:00 AM EDT [facility] (Ammir Jolie Physician) Name Value Range Interpretation Description Data Sup porting Code Source(s) Document(s ) WBC 9.1 Normal (applies [facility] 10(3)/uL to non-numeric (Ammir results) Jolie Physician) RBC 3.3 Below low normal [facility] 10(6)/uL (Ammir Jolie Physician) Hemoglobin 10.5 g/dL Below low normal [facility] [Mass/volume] (Ammir in Mixed venous Jolie blood by Physician) Oximetry Hematocrit 31.4 % Below low normal [facility] [Pure volume (Ammir fraction] of Jolie Blood by Physician) Automated count MCV 94.3 fL Normal (applies [facility] to non-numeric (Ammir results) Jolie Physician) MCH 32 pg Normal (applies [facility] to non-numeric (Ammir results) Jolie Physician) MCHC 33 g/dL Normal (applies [facility] to non-numeric (Ammir results) Jolie Physician) RDWSD 41.4 fL Normal (applies [facility] to non-numeric (Ammir results) Jolie Physician) RDWCV 12.2 % Normal (applies [facility] to non-numeric (Ammir results) Jolie Physician) Platelet Count 258 Normal (applies [facility] 10(3)/uL to non-numeric (Ammir results) Jolie Physician) MPV 11.5 fL Normal (applies [facility] to non-numeric (Ammir results) Jolie Physician) Neutrophil Abs 4.77 Normal (applies [facility] 10(3)/uL to non-numeric (Ammir results) Jolie Physician) Lymphocyte Abs 2.57 Normal (applies [facility] 10(3)/uL to non-numeric (Ammir results) Jolie Physician) Eosinophil Abs 0.59 Above high normal [facility] 10(3)/uL (Ammir Jolie Physician) Monocyte Abs 1.11 Above high normal [facility] 10(3)/uL (Ammir Jolie Physician) Basophil Abs 0.05 Normal (applies [facility] 10(3)/uL to non-numeric (Ammir results) Jolie Physician) Immature 0.05 Normal (applies [facility] Granulocyte Abs 10(3)/uL to non-numeric (Ammir results) Jolie Physician) Lymphocyte % 28 % Normal (applies [facility] to non-numeric (Ammir results) Jolie Physician) Neutrophil % 52.40 % Normal (applies [facility] to non-numeric (Ammir results) Jolie Physician) Monocyte % 12.2 % Normal (applies [facility] to non-numeric (Ammir results) Jolie Physician) Eosinophil % 6.5 % Normal (applies [facility] to non-numeric (Ammir results) Jolie Physician) Basophil % 0.6 % Normal (applies [facility] to non-numeric (Ammir results) Jolie Physician) Immature 0.60 % Normal (applies [facility] Granulocyte % to non-numeric (Ammir results) Jolie Physician) NRBC % 0.0 % Normal (applies [facility] to non-numeric (Ammir results) Jolie Physician) NRBC Abs 0.00 Normal (applies [facility] 10(3)/uL to non-numeric (Ammir results) Jolie Physician) ID Date Data Source [id number] 10/22/2019 12:00:00 AM EDT [facility] (Ammir Jolie Physician) Name Value Range Interpretation Description Data Sup porting Code Source(s) Document(s ) Hemoglobin A1c 5.7 % Above high normal [facility] (Ammir in Blood Jolie Physician) ID Date Data Source [id number] 10/22/2019 12:00:00 AM EDT [facility] (Ammir Jolie Physician) Name Value Range Interpretation Description Data Sup porting Code Source(s) Document(s ) GLUCOSE 108 Normal (applies [facility] NONFASTING,SERUM mg/dL to non-numeric (Ammir results) Jolie Physician) SODIUM, SERUM 140 Normal (applies [facility] mEq/L to non-numeric (Ammir results) Jolie Physician) POTASSIUM, SERUM 4.7 Normal (applies [facility] mEq/L to non-numeric (Ammir results) Jolie Physician) CHLORIDE, SERUM 105 Normal (applies [facility] mEq/L to non-numeric (Ammir results) Jolie Physician) Carbon dioxide 31 mEq/L Normal (applies [facility] [VFr/PPres] in to non-numeric (Ammir Gas delivery results) Jolie system Physician) BLOOD UREA 34 mg/dL Above high normal [facility] NITROGEN (Ammir Jolie Physician) Anion gap in 8.7 Normal (applies [facility] Body fluid mEq/L to non-numeric (Ammir results) Jolie Physician) CREATININE, 1.00 Above high normal [facility] SERUM mg/dL (Ammir Jolie Physician) BUN/CREATININE 34.00 Above high normal [facility] RATIO (mir Jolie Physician) CALCIUM, SERUM 9.5 Normal (applies [facility] mg/dL to non-numeric (Ammir results) Jolie Physician) TOTAL PROTEIN 7.0 g/dL Normal (applies [facility] to non-numeric (Ammir results) Jolie Physician) Microalbumin 3.9 g/dL Normal (applies [facility] [Mass/time] in to non-numeric (Ammir Urine collected results) Jolie for unspecified Physician) duration Globulin 3.1 gldl Normal (applies [facility] [Mass/time] in to non-numeric (Ammir 24 hour Urine results) Jolie Physician) A/G RATIO 1.26 Normal (applies [facility] g/dl to non-numeric (Ammir results) Jolie Physician) BILIRUBIN, TOTAL 0.1 Below low normal [facility] mg/dL (Ammir Jolie Physician) ALKALINE 77 U/L Normal (applies [facility] PHOSPHATASE, ALP to non-numeric (Ammir results) Jolie Physician) ALT (SGPT) 27 U/L Normal (applies [facility] to non-numeric (Ammir results) Jolie Physician) AST 32 U/L Normal (applies [facility] to non-numeric (Ammir results) Jolie Physician) EGFR AFR 69 Normal (applies [facility] DOMINICAN mL/min/1 to non-numeric (Ammir .73m2 results) Jolie Physician) EGFR NON AFR 57 Below low normal [facility] DOMINICAN mL/min/1 (Ammir .73m2 Jolie Physician) ID Date Data Source [id number] 06/16/2019 12:00:00 AM EST [facility] (Ammir Jolie Physician) Name Value Range Interpretation Code Description Data Jeny rce(s) Supporting Document(s ) FLU A Positive Abnormal (applies to [facility] (A mmir non-numeric results) Jolie Physician) FLU B Negative Normal (applies to [facility] (Amm ir non-numeric results) Jolie Physician) ID Date Data Source [id number] 06/16/2019 12:00:00 AM EST [facility] (Ammir Jolie Physician) Name Value Range Interpretation Description Data Sup porting Code Source(s) Document(s ) T4 FREE, 1.19 Normal (applies to [facility] THYROXINE ng/dL non-numeric (Ammir results) Jolie Physician) TSH,3RD 2.38 Normal (applies to [facility] GENERATION uIU/mL non-numeric (Ammir results) Jolie Physician) ID Date Data Source [id number] 06/16/2019 12:00:00 AM EST [facility] (Ammir Jolie Physician) Name Value Range Interpretation Description Data Sup porting Code Source(s) Document(s ) Ferritin 22.2 Normal (applies to [facility] (Amm ir [Interpretat ng/mL non-numeric Jolie ion] in results) Physician) Blood ID Date Data Source [id number] 06/16/2019 12:00:00 AM EST [facility] (Ammir Joile Physician) Name Value Range Interpretation Description Data Sup porting Code Source(s) Document(s ) Transferrin 248 mg/dL Normal (applies [facility] [Mass/time] in to non-numeric (Ammir 24 hour Urine results) Jolie Physician) TIBC 347.8 Normal (applies [facility] ug/dL to non-numeric (Ammir results) Jolie Physician) %SATURATION 6.6 % Below low normal [facility] (Ammir Jolie Physician) UIBC 324.8 Normal (applies [facility] ug/dL to non-numeric (Ammir results) Jolie Physician) ID Date Data Source [id number] 06/16/2019 12:00:00 AM EST [facility] (Ammir Jolie Physician) Name Value Range Interpretation Code Description Data Jeny rce(s) Supporting Document(s ) IRON, 23 ug/dL Below low normal [facility] (Ammir TOTAL Joile Physician) ID Date Data Source [id number] 06/16/2019 12:00:00 AM EST [facility] (Ammir Jolie Physician) Name Value Range Interpretation Description Data Sup porting Code Source(s) Document(s ) WBC 7.2 Normal (applies [facility] 10(3)/uL to non-numeric (Ammir results) Jolie Physician) RBC 3.4 Below low normal [facility] 10(6)/uL (Ammir Jolie Physician) Hemoglobin 10.8 g/dL Below low normal [facility] [Mass/volume] (Ammir in Mixed venous Jolie blood by Physician) Oximetry Hematocrit 31.6 % Below low normal [facility] [Pure volume (Ammir fraction] of Jolie Blood by Physician) Automated count MCV 92.4 fL Normal (applies [facility] to non-numeric (Ammir results) Jolie Physician) MCH 32 pg Normal (applies [facility] to non-numeric (Ammir results) Jolie Physician) MCHC 34 g/dL Normal (applies [facility] to non-numeric (Ammir results) Jolie Physician) RDWSD 43.9 fL Normal (applies [facility] to non-numeric (Ammir results) Jolie Physician) RDWCV 13.0 % Normal (applies [facility] to non-numeric (Ammir results) Jolie Physician) MPV 11.1 fL Normal (applies [facility] to non-numeric (Ammir results) Jolie Physician) Platelet Count 194 Normal (applies [facility] 10(3)/uL to non-numeric (Ammir results) Jolie Physician) Neutrophil Abs 4.92 Normal (applies [facility] 10(3)/uL to non-numeric (Ammir results) Jolie Physician) Lymphocyte Abs 1.36 Normal (applies [facility] 10(3)/uL to non-numeric (Ammir results) Jolie Physician) Monocyte Abs 0.85 Normal (applies [facility] 10(3)/uL to non-numeric (Ammir results) Jolie Physician) Basophil Abs 0.02 Normal (applies [facility] 10(3)/uL to non-numeric (Ammir results) Jolie Physician) Eosinophil Abs 0.07 Normal (applies [facility] 10(3)/uL to non-numeric (Ammir results) Jolie Physician) Immature 0.02 Normal (applies [facility] Granulocyte Abs 10(3)/uL to non-numeric (Ammir results) Jolie Physician) Neutrophil % 68.10 % Normal (applies [facility] to non-numeric (Ammir results) Jolie Physician) Lymphocyte % 19 % Normal (applies [facility] to non-numeric (Ammir results) Jolie Physician) Eosinophil % 1.0 % Normal (applies [facility] to non-numeric (Ammir results) Jolie Physician) Monocyte % 11.8 % Normal (applies [facility] to non-numeric (Ammir results) Jolie Physician) Basophil % 0.3 % Normal (applies [facility] to non-numeric (Ammir results) Jolie Physician) Immature 0.30 % Normal (applies [facility] Granulocyte % to non-numeric (Ammir results) Jolie Physician) NRBC Abs 0.00 Normal (applies [facility] 10(3)/uL to non-numeric (Ammir results) Jolie Physician) NRBC % 0.0 % Normal (applies [facility] to non-numeric (Ammir results) Jolie Physician) ID Date Data Source [id number] 06/16/2019 12:00:00 AM EST [facility] (Ammir Jolie Physician) Name Value Range Interpretation Description Data Sup porting Code Source(s) Document(s ) Hemoglobin A1c 6.0 % Above high normal [facility] (Ammir in Blood Jolie Physician) ID Date Data Source [id number] 06/16/2019 12:00:00 AM EST [facility] (Ammir Jolie Physician) Name Value Range Interpretation Description Data Sup porting Code Source(s) Document(s ) GLUCOSE 193 Above high normal [facility] NONFASTING,SERUM mg/dL (Ammir Jolie Physician) SODIUM, SERUM 138 Normal (applies [facility] mEq/L to non-numeric (Ammir results) Jolie Physician) POTASSIUM, SERUM 4.2 Normal (applies [facility] mEq/L to non-numeric (Ammir results) Jolie Physician) CHLORIDE, SERUM 105 Normal (applies [facility] mEq/L to non-numeric (Ammir results) Jolie Physician) Carbon dioxide 26 mEq/L Normal (applies [facility] [VFr/PPres] in to non-numeric (Ammir Gas delivery results) Jolie system Physician) Anion gap in 11.2 Normal (applies [facility] Body fluid mEq/L to non-numeric (Ammir results) Jolie Physician) BLOOD UREA 22 mg/dL Normal (applies [facility] NITROGEN to non-numeric (Ammir results) Jolie Physician) CREATININE, 0.90 Normal (applies [facility] SERUM mg/dL to non-numeric (Ammir results) Jolie Physician) CALCIUM, SERUM 9.4 Normal (applies [facility] mg/dL to non-numeric (Ammir results) Jolie Physician) TOTAL PROTEIN 7.1 g/dL Normal (applies [facility] to non-numeric (Ammir results) Jolie Physician) Microalbumin 3.9 g/dL Normal (applies [facility] [Mass/time] in to non-numeric (Ammir Urine collected results) Jolie for unspecified Physician) duration Globulin 3.2 gldl Normal (applies [facility] [Mass/time] in to non-numeric (Ammir 24 hour Urine results) Jolie Physician) A/G RATIO 1.22 Normal (applies [facility] g/dl to non-numeric (Ammir results) Jolie Physician) BILIRUBIN, TOTAL 0.2 Below low normal [facility] mg/dL (Ammir Jolie Physician) ALKALINE 88 U/L Normal (applies [facility] PHOSPHATASE, ALP to non-numeric (Ammir results) Jolie Physician) ALT (SGPT) 19 U/L Normal (applies [facility] to non-numeric (Ammir results) Jolie Physician) AST 31 U/L Normal (applies [facility] to non-numeric (Ammir results) Jolie Physician) EGFR AFR 78 Normal (applies [facility] DOMINICAN mL/min/1 to non-numeric (Ammir .73m2 results) Jolie Physician) EGFR NON AFR 64 Normal (applies [facility] DOMINICAN mL/min/1 to non-numeric (Ammir .73m2 results) Jolie Physician) ID Date Data Source [id number] 06/16/2019 12:00:00 AM EST [facility] (Ammir Jolie Physician) Name Value Range Interpretation Code Description Data Jeny rce(s) Supporting Document(s ) FLU A Positive Abnormal (applies to [facility] (A mmir non-numeric results) Jolie Physician) FLU B Negative Normal (applies to [facility] (Amm ir non-numeric results) Jolie Physician) ID Date Data Source [id number] 06/16/2019 12:00:00 AM EST [facility] (Ammir Jolie Physician) Name Value Range Interpretation Description Data Sup porting Code Source(s) Document(s ) T4 FREE, 1.19 Normal (applies to [facility] THYROXINE ng/dL non-numeric (Ammir results) Jolie Physician) TSH,3RD 2.38 Normal (applies to [facility] GENERATION uIU/mL non-numeric (Ammir results) Jolie Physician) ID Date Data Source [id number] 06/16/2019 12:00:00 AM EST [facility] (Ammir Jolie Physician) Name Value Range Interpretation Description Data Sup porting Code Source(s) Document(s ) Ferritin 22.2 Normal (applies to [facility] (Amm ir [Interpretat ng/mL non-numeric Jolie ion] in results) Physician) Blood ID Date Data Source [id number] 06/16/2019 12:00:00 AM EST [facility] (Ammir Jolie Physician) Name Value Range Interpretation Description Data Sup porting Code Source(s) Document(s ) Transferrin 248 mg/dL Normal (applies [facility] [Mass/time] in to non-numeric (Ammir 24 hour Urine results) Jolie Physician) TIBC 347.8 Normal (applies [facility] ug/dL to non-numeric (Ammir results) Jolie Physician) %SATURATION 6.6 % Below low normal [facility] (Ammir Jolie Physician) UIBC 324.8 Normal (applies [facility] ug/dL to non-numeric (Ammir results) Jolie Physician) ID Date Data Source [id number] 06/16/2019 12:00:00 AM EST [facility] (Ammir Jolie Physician) Name Value Range Interpretation Code Description Data Jeny rce(s) Supporting Document(s ) IRON, 23 ug/dL Below low normal [facility] (Ammir TOTAL Jolie Physician) ID Date Data Source [id number] 06/16/2019 12:00:00 AM EST [facility] (Ammir Jolie Physician) Name Value Range Interpretation Description Data Sup porting Code Source(s) Document(s ) WBC 7.2 Normal (applies [facility] 10(3)/uL to non-numeric (Ammir results) Jolie Physician) RBC 3.4 Below low normal [facility] 10(6)/uL (Ammir Jolie Physician) Hemoglobin 10.8 g/dL Below low normal [facility] [Mass/volume] (Ammir in Mixed venous Jolie blood by Physician) Oximetry Hematocrit 31.6 % Below low normal [facility] [Pure volume (Ammir fraction] of Jolie Blood by Physician) Automated count MCV 92.4 fL Normal (applies [facility] to non-numeric (Ammir results) Jolie Physician) MCH 32 pg Normal (applies [facility] to non-numeric (Ammir results) Jolie Physician) MCHC 34 g/dL Normal (applies [facility] to non-numeric (Ammir results) Jolie Physician) RDWSD 43.9 fL Normal (applies [facility] to non-numeric (Ammir results) Jolie Physician) RDWCV 13.0 % Normal (applies [facility] to non-numeric (Ammir results) Jolie Physician) Platelet Count 194 Normal (applies [facility] 10(3)/uL to non-numeric (Ammir results) Jolie Physician) MPV 11.1 fL Normal (applies [facility] to non-numeric (Ammir results) Jolie Physician) Neutrophil Abs 4.92 Normal (applies [facility] 10(3)/uL to non-numeric (Ammir results) Jolie Physician) Lymphocyte Abs 1.36 Normal (applies [facility] 10(3)/uL to non-numeric (Ammir results) Jolie Physician) Monocyte Abs 0.85 Normal (applies [facility] 10(3)/uL to non-numeric (Ammir results) Jolie Physician) Eosinophil Abs 0.07 Normal (applies [facility] 10(3)/uL to non-numeric (Ammir results) Jolie Physician) Basophil Abs 0.02 Normal (applies [facility] 10(3)/uL to non-numeric (Ammir results) Jolie Physician) Immature 0.02 Normal (applies [facility] Granulocyte Abs 10(3)/uL to non-numeric (Ammir results) Jolie Physician) Neutrophil % 68.10 % Normal (applies [facility] to non-numeric (Ammir results) Jolie Physician) Lymphocyte % 19 % Normal (applies [facility] to non-numeric (Ammir results) Jolie Physician) Monocyte % 11.8 % Normal (applies [facility] to non-numeric (Ammir results) Jolie Physician) Eosinophil % 1.0 % Normal (applies [facility] to non-numeric (Ammir results) Jolie Physician) Basophil % 0.3 % Normal (applies [facility] to non-numeric (Ammir results) Jolie Physician) Immature 0.30 % Normal (applies [facility] Granulocyte % to non-numeric (Ammir results) Jolie Physician) NRBC % 0.0 % Normal (applies [facility] to non-numeric (Ammir results) Jolie Physician) NRBC Abs 0.00 Normal (applies [facility] 10(3)/uL to non-numeric (Ammir results) Jolie Physician) ID Date Data Source [id number] 06/16/2019 12:00:00 AM EST [facility] (Ammir Jolie Physician) Name Value Range Interpretation Description Data Sup porting Code Source(s) Document(s ) Hemoglobin A1c 6.0 % Above high normal [facility] (Ammir in Blood Jolie Physician) ID Date Data Source [id number] 06/16/2019 12:00:00 AM EST [facility] (Ammir Jolie Physician) Name Value Range Interpretation Description Data Sup porting Code Source(s) Document(s ) GLUCOSE 193 Above high normal [facility] NONFASTING,SERUM mg/dL (Ammir Jolie Physician) SODIUM, SERUM 138 Normal (applies [facility] mEq/L to non-numeric (Ammir results) Jolie Physician) POTASSIUM, SERUM 4.2 Normal (applies [facility] mEq/L to non-numeric (Ammir results) Jolie Physician) Carbon dioxide 26 mEq/L Normal (applies [facility] [VFr/PPres] in to non-numeric (Ammir Gas delivery results) Jolie system Physician) CHLORIDE, SERUM 105 Normal (applies [facility] mEq/L to non-numeric (Ammir results) Jolie Physician) Anion gap in 11.2 Normal (applies [facility] Body fluid mEq/L to non-numeric (Ammir results) Jolie Physician) CREATININE, 0.90 Normal (applies [facility] SERUM mg/dL to non-numeric (Ammir results) Jolie Physician) BLOOD UREA 22 mg/dL Normal (applies [facility] NITROGEN to non-numeric (Ammir results) Jolie Physician) CALCIUM, SERUM 9.4 Normal (applies [facility] mg/dL to non-numeric (Ammir results) Jolie Physician) TOTAL PROTEIN 7.1 g/dL Normal (applies [facility] to non-numeric (Ammir results) Jolie Physician) Globulin 3.2 gldl Normal (applies [facility] [Mass/time] in to non-numeric (Ammir 24 hour Urine results) Jolie Physician) Microalbumin 3.9 g/dL Normal (applies [facility] [Mass/time] in to non-numeric (Ammir Urine collected results) Jolie for unspecified Physician) duration A/G RATIO 1.22 Normal (applies [facility] g/dl to non-numeric (Ammir results) Jolie Physician) BILIRUBIN, TOTAL 0.2 Below low normal [facility] mg/dL (Ammir Jolie Physician) ALKALINE 88 U/L Normal (applies [facility] PHOSPHATASE, ALP to non-numeric (Ammir results) Jolie Physician) ALT (SGPT) 19 U/L Normal (applies [facility] to non-numeric (Ammir results) Jolie Physician) AST 31 U/L Normal (applies [facility] to non-numeric (Ammir results) Jolie Physician) EGFR NON AFR 64 Normal (applies [facility] DOMINICAN mL/min/1 to non-numeric (Ammir .73m2 results) Jolie Physician) EGFR AFR 78 Normal (applies [facility] DOMIN[place] mL/min/1 to non-numeric (Ammir .73m2 results) Jolie Physician) ID Date Data Source [id number] 04/28/2019 12:00:00 AM EST [facility] (Ammir Jolie Physician) Name Value Range Interpretation Description Data Sup porting Code Source(s) Document(s ) WBC 10.1 Normal (applies [facility] 10(3)/uL to non-numeric (Ammir results) Jolie Physician) RBC 3.0 Below low normal [facility] 10(6)/uL (Ammir Jolie Physician) Hemoglobin 9.1 g/dL Below low normal [facility] [Mass/volume] (Ammir in Mixed venous Jolie blood by Physician) Oximetry Hematocrit 27.6 % Below low normal [facility] [Pure volume (Ammir fraction] of Jolie Blood by Physician) Automated count MCH 30 pg Normal (applies [facility] to non-numeric (Ammir results) Jolie Physician) MCV 92.0 fL Normal (applies [facility] to non-numeric (Ammir results) Jolie Physician) MCHC 33 g/dL Normal (applies [facility] to non-numeric (Ammir results) Jolie Physician) RDWSD 40.8 fL Normal (applies [facility] to non-numeric (Ammir results) Jolie Physician) RDWCV 12.3 % Normal (applies [facility] to non-numeric (Ammir results) Jolie Physician) Platelet Count 297 Normal (applies [facility] 10(3)/uL to non-numeric (Ammir results) Jolie Physician) MPV 11.1 fL Normal (applies [facility] to non-numeric (Ammir results) Jolie Physician) Neutrophil Abs 4.58 Normal (applies [facility] 10(3)/uL to non-numeric (Ammir results) Jolie Physician) Lymphocyte Abs 2.99 Normal (applies [facility] 10(3)/uL to non-numeric (Ammir results) Jolie Physician) Eosinophil Abs 1.28 Above high normal [facility] 10(3)/uL (Ammir Jolie Physician) Monocyte Abs 1.18 Above high normal [facility] 10(3)/uL (Ammir Jolie Physician) Basophil Abs 0.05 Normal (applies [facility] 10(3)/uL to non-numeric (Ammir results) Jolie Physician) Immature 0.02 Normal (applies [facility] Granulocyte Abs 10(3)/uL to non-numeric (Ammir results) Jolie Physician) Neutrophil % 45.40 % Normal (applies [facility] to non-numeric (Ammir results) Jolie Physician) Lymphocyte % 30 % Normal (applies [facility] to non-numeric (Ammir results) Jolie Physician) Monocyte % 11.7 % Normal (applies [facility] to non-numeric (Ammir results) Jolie Physician) Eosinophil % 12.7 % Above high normal [facility] (Ammir Jolie Physician) Immature 0.20 % Normal (applies [facility] Granulocyte % to non-numeric (Ammir results) Jolie Physician) Basophil % 0.5 % Normal (applies [facility] to non-numeric (Ammir results) Jolie Physician) NRBC % 0.0 % Normal (applies [facility] to non-numeric (Ammir results) Jolie Physician) NRBC Abs 0.00 Normal (applies [facility] 10(3)/uL to non-numeric (Ammir results) Jolie Physician) ID Date Data Source [id number] 04/28/2019 12:00:00 AM EST [facility] (Ammir Jolie Physician) Name Value Range Interpretation Description Data Sup porting Code Source(s) Document(s ) Hemoglobin A1c 6.1 % Above high normal [facility] (Ammir in Blood Jolie Physician) ID Date Data Source [id number] 04/28/2019 12:00:00 AM EST [facility] (Ammir Jolie Physician) Name Value Range Interpretation Description Data Sup porting Code Source(s) Document(s ) GLUCOSE 106 Normal (applies [facility] NONFASTING,SERUM mg/dL to non-numeric (Ammir results) Jolie Physician) SODIUM, SERUM 138 Normal (applies [facility] mEq/L to non-numeric (Ammir results) Jolie Physician) POTASSIUM, SERUM 5.0 Normal (applies [facility] mEq/L to non-numeric (Ammir results) Jolie Physician) CHLORIDE, SERUM 105 Normal (applies [facility] mEq/L to non-numeric (Ammir results) Jolie Physician) Carbon dioxide 24 mEq/L Normal (applies [facility] [VFr/PPres] in to non-numeric (Ammir Gas delivery results) Jolie system Physician) Anion gap in 14 mEq/L Normal (applies [facility] Body fluid to non-numeric (Ammir results) Jolie Physician) BLOOD UREA 27 mg/dL Above high normal [facility] NITROGEN (Ammir Jolie Physician) CREATININE, 0.80 Normal (applies [facility] SERUM mg/dL to non-numeric (Ammir results) Jolie Physician) BUN/CREATININE 33.75 Above high normal [facility] RATIO (Ammir Jolie Physician) CALCIUM, SERUM 9.3 Normal (applies [facility] mg/dL to non-numeric (Ammir results) Jolie Physician) TOTAL PROTEIN 6.4 g/dL Normal (applies [facility] to non-numeric (Ammir results) Jolie Physician) Microalbumin 3.6 g/dL Normal (applies [facility] [Mass/time] in to non-numeric (Ammir Urine collected results) Jolie for unspecified Physician) duration Globulin 2.8 gldl Normal (applies [facility] [Mass/time] in to non-numeric (Ammir 24 hour Urine results) Jolie Physician) A/G RATIO 1.29 Normal (applies [facility] g/dl to non-numeric (Ammir results) Jolie Physician) BILIRUBIN, TOTAL 0.1 Below low normal [facility] mg/dL (Ammir Jolie Physician) ALKALINE 78 U/L Normal (applies [facility] PHOSPHATASE, ALP to non-numeric (Ammir results) Jolie Physician) ALT (SGPT) 22 U/L Normal (applies [facility] to non-numeric (Ammir results) Jolie Physician) AST 26 U/L Normal (applies [facility] to non-numeric (Ammir results) Jolie Physician) EGFR AFR 89 Normal (applies [facility] DOMIN[place] mL/min/1 to non-numeric (Ammir .73m2 results) Jolie Physician) EGFR NON AFR 74 Normal (applies [facility] DOMIN[place] mL/min/1 to non-numeric (Ammir .73m2 results) Jolie Physician) ID Date Data Source [id number] 04/28/2019 12:00:00 AM EST [facility] (Ammir Jolie Physician) Name Value Range Interpretation Description Data Sup porting Code Source(s) Document(s ) WBC 10.1 Normal (applies [facility] 10(3)/uL to non-numeric (Ammir results) Jolie Physician) RBC 3.0 Below low normal [facility] 10(6)/uL (Ammir Jolie Physician) Hemoglobin 9.1 g/dL Below low normal [facility] [Mass/volume] (Ammir in Mixed venous Jolie blood by Physician) Oximetry Hematocrit 27.6 % Below low normal [facility] [Pure volume (Ammir fraction] of Jolie Blood by Physician) Automated count MCH 30 pg Normal (applies [facility] to non-numeric (Ammir results) Jolie Physician) MCV 92.0 fL Normal (applies [facility] to non-numeric (Ammir results) Jolie Physician) MCHC 33 g/dL Normal (applies [facility] to non-numeric (Ammir results) Jolie Physician) RDWSD 40.8 fL Normal (applies [facility] to non-numeric (Ammir results) Jolie Physician) RDWCV 12.3 % Normal (applies [facility] to non-numeric (Ammir results) Jolie Physician) Platelet Count 297 Normal (applies [facility] 10(3)/uL to non-numeric (Ammir results) Jolie Physician) MPV 11.1 fL Normal (applies [facility] to non-numeric (Ammir results) Jolie Physician) Neutrophil Abs 4.58 Normal (applies [facility] 10(3)/uL to non-numeric (Ammir results) Jolie Physician) Lymphocyte Abs 2.99 Normal (applies [facility] 10(3)/uL to non-numeric (Ammir results) Jolie Physician) Monocyte Abs 1.18 Above high normal [facility] 10(3)/uL (Ammir Jolie Physician) Basophil Abs 0.05 Normal (applies [facility] 10(3)/uL to non-numeric (Ammir results) Jolie Physician) Eosinophil Abs 1.28 Above high normal [facility] 10(3)/uL (Ammir Jolie Physician) Immature 0.02 Normal (applies [facility] Granulocyte Abs 10(3)/uL to non-numeric (Ammir results) Jolie Physician) Lymphocyte % 30 % Normal (applies [facility] to non-numeric (Ammir results) Jolie Physician) Neutrophil % 45.40 % Normal (applies [facility] to non-numeric (Ammir results) Jolie Physician) Monocyte % 11.7 % Normal (applies [facility] to non-numeric (Ammir results) Jolie Physician) Eosinophil % 12.7 % Above high normal [facility] (Ammir Jolie Physician) Basophil % 0.5 % Normal (applies [facility] to non-numeric (Ammir results) Jolie Physician) Immature 0.20 % Normal (applies [facility] Granulocyte % to non-numeric (Ammir results) Jolie Physician) NRBC % 0.0 % Normal (applies [facility] to non-numeric (Ammir results) Jolie Physician) NRBC Abs 0.00 Normal (applies [facility] 10(3)/uL to non-numeric (Ammir results) Jolie Physician) ID Date Data Source [id number] 04/28/2019 12:00:00 AM EST [facility] (Ammir Jolie Physician) Name Value Range Interpretation Description Data Sup porting Code Source(s) Document(s ) Hemoglobin A1c 6.1 % Above high normal [facility] (Ammir in Blood Jolie Physician) ID Date Data Source [id number] 04/28/2019 12:00:00 AM EST [facility] (Ammir Jolie Physician) Name Value Range Interpretation Description Data Sup porting Code Source(s) Document(s ) GLUCOSE 106 Normal (applies [facility] NONFASTING,SERUM mg/dL to non-numeric (Ammir results) Jolie Physician) SODIUM, SERUM 138 Normal (applies [facility] mEq/L to non-numeric (Ammir results) Jolie Physician) POTASSIUM, SERUM 5.0 Normal (applies [facility] mEq/L to non-numeric (Ammir results) Jolie Physician) CHLORIDE, SERUM 105 Normal (applies [facility] mEq/L to non-numeric (Ammir results) Jolie Physician) Carbon dioxide 24 mEq/L Normal (applies [facility] [VFr/PPres] in to non-numeric (Ammir Gas delivery results) Jolie system Physician) Anion gap in 14 mEq/L Normal (applies [facility] Body fluid to non-numeric (Ammir results) Jolie Physician) BLOOD UREA 27 mg/dL Above high normal [facility] NITROGEN (Ammir Jolie Physician) CREATININE, 0.80 Normal (applies [facility] SERUM mg/dL to non-numeric (Ammir results) Jolie Physician) BUN/CREATININE 33.75 Above high normal [facility] RATIO (Ammir Jolie Physician) CALCIUM, SERUM 9.3 Normal (applies [facility] mg/dL to non-numeric (Ammir results) Jolie Physician) Microalbumin 3.6 g/dL Normal (applies [facility] [Mass/time] in to non-numeric (Ammir Urine collected results) Jolie for unspecified Physician) duration TOTAL PROTEIN 6.4 g/dL Normal (applies [facility] to non-numeric (Ammir results) Jolie Physician) Globulin 2.8 gldl Normal (applies [facility] [Mass/time] in to non-numeric (Ammir 24 hour Urine results) Jolie Physician) A/G RATIO 1.29 Normal (applies [facility] g/dl to non-numeric (Ammir results) Jolie Physician) BILIRUBIN, TOTAL 0.1 Below low normal [facility] mg/dL (Ammir Jolie Physician) ALKALINE 78 U/L Normal (applies [facility] PHOSPHATASE, ALP to non-numeric (Ammir results) Jolie Physician) ALT (SGPT) 22 U/L Normal (applies [facility] to non-numeric (Ammir results) Jolie Physician) EGFR NON AFR 74 Normal (applies [facility] DOMIN[place] mL/min/1 to non-numeric (Ammir .73m2 results) Jolie Physician) AST 26 U/L Normal (applies [facility] to non-numeric (Ammir results) Jolie Physician) EGFR AFR 89 Normal (applies [facility] DOMIN[place] mL/min/1 to non-numeric (Ammir .73m2 results) Jolie Physician) ID Date Data Source [id number] 01/21/2019 12:00:00 AM EDT [facility] (Ammir Jolie Physician) Name Value Range Interpretation Description Data Sup porting Code Source(s) Document(s ) GLUCOSE 120 Normal (applies [facility] NONFASTING,SERUM mg/dL to non-numeric (Ammir results) Jolie Physician) SODIUM, SERUM 136 Normal (applies [facility] mEq/L to non-numeric (Ammir results) Jolie Physician) POTASSIUM, SERUM 4.2 Normal (applies [facility] mEq/L to non-numeric (Ammir results) Jolie Physician) CHLORIDE, SERUM 104 Normal (applies [facility] mEq/L to non-numeric (Ammir results) Jolie Physician) Carbon dioxide 29 mEq/L Normal (applies [facility] [VFr/PPres] in to non-numeric (Ammir Gas delivery results) Jolie system Physician) Anion gap in 7.2 Normal (applies [facility] Body fluid mEq/L to non-numeric (Ammir results) Jolie Physician) BLOOD UREA 24 mg/dL Above high normal [facility] NITROGEN (Ammir Jolie Physician) CREATININE, 0.80 Normal (applies [facility] SERUM mg/dL to non-numeric (Ammir results) Jolie Physician) BUN/CREATININE 30.00 Above high normal [facility] RATIO (Ammir Jolie Physician) CALCIUM, SERUM 9.1 Normal (applies [facility] mg/dL to non-numeric (Ammir results) Ojlie Physician) TOTAL PROTEIN 6.6 g/dL Normal (applies [facility] to non-numeric (Ammir results) Jolie Physician) Microalbumin 3.8 g/dL Normal (applies [facility] [Mass/time] in to non-numeric (Ammir Urine collected results) Jolie for unspecified Physician) duration A/G RATIO 1.36 Normal (applies [facility] g/dl to non-numeric (Ammir results) Jolie Physician) Globulin 2.8 gldl Normal (applies [facility] [Mass/time] in to non-numeric (Ammir 24 hour Urine results) Jolie Physician) BILIRUBIN, TOTAL 0.2 Below low normal [facility] mg/dL (Ammir Jolie Physician) ALKALINE 80 U/L Normal (applies [facility] PHOSPHATASE, ALP to non-numeric (Ammir results) Jolie Physician) AST 27 U/L Normal (applies [facility] to non-numeric (Ammir results) Jolie Physician) ALT (SGPT) 17 U/L Normal (applies [facility] to non-numeric (Ammir results) Jolie Physician) EGFR NON AFR 74 Above high normal [facility] DOMINICAN mL/min/1 (Ammir .73m2 Jolie Physician) EGFR AFR 89 Above high normal [facility] DOMINICAN mL/min/1 (Ammir .73m2 Jolie Physician) ID Date Data Source [id number] 01/21/2019 12:00:00 AM EDT [facility] (Ammir Jolie Physician) Name Value Range Interpretation Description Data Sup porting Code Source(s) Document(s ) WBC 9.5 Normal (applies [facility] 10(3)/uL to non-numeric (Ammir results) Jolie Physician) RBC 3.6 Normal (applies [facility] 10(6)/uL to non-numeric (Ammir results) Jolie Physician) Hemoglobin 11.0 g/dL Normal (applies [facility] [Mass/volume] to non-numeric (Ammir in Mixed venous results) Jolie blood by Physician) Oximetry Hematocrit 33.1 % Below low normal [facility] [Pure volume (Ammir fraction] of Jolie Blood by Physician) Automated count MCV 93.2 fL Normal (applies [facility] to non-numeric (Ammir results) Jolie Physician) MCH 31 pg Normal (applies [facility] to non-numeric (Ammir results) Jolie Physician) MCHC 33 g/dL Normal (applies [facility] to non-numeric (Ammir results) Jolie Physician) RDWCV 12.8 % Normal (applies [facility] to non-numeric (Ammir results) Jolie Physician) RDWSD 43.7 fL Normal (applies [facility] to non-numeric (Ammir results) Jolie Physician) Platelet Count 232 Normal (applies [facility] 10(3)/uL to non-numeric (Ammir results) Jolie Physician) MPV 10.7 fL Normal (applies [facility] to non-numeric (Ammir results) Jolie Physician) Neutrophil Abs 3.73 Normal (applies [facility] 10(3)/uL to non-numeric (Ammir results) Jolie Physician) Lymphocyte Abs 3.33 Normal (applies [facility] 10(3)/uL to non-numeric (Ammir results) Jolie Physician) Monocyte Abs 1.16 Above high normal [facility] 10(3)/uL (Ammir Jolie Physician) Neutrophil % 39.40 % Normal (applies [facility] to non-numeric (Ammir results) Jolie Physician) Eosinophil Abs 1.16 Above high normal [facility] 10(3)/uL (Ammir Jolie Physician) Lymphocyte % 35 % Normal (applies [facility] to non-numeric (Ammir results) Jolie Physician) Monocyte % 12.3 % Normal (applies [facility] to non-numeric (Ammir results) Jolie Physician) Basophil % 0.5 % Normal (applies [facility] to non-numeric (Ammir results) Jolie Physician) Eosinophil % 12.3 % Above high normal [facility] (Ammir Jolie Physician) Immature 0.30 % Normal (applies [facility] Granulocyte % to non-numeric (Ammir results) Jolie Physician) ID Date Data Source [id number] 01/21/2019 12:00:00 AM EDT [facility] (Ammir Jolie Physician) Name Value Range Interpretation Description Data Sup porting Code Source(s) Document(s ) Hemoglobin A1c 5.9 % Above high normal [facility] (Ammir in Blood Jolie Physician) ID Date Data Source [id number] 01/21/2019 12:00:00 AM EDT [facility] (Ammir Jolie Physician) Name Value Range Interpretation Description Data Sup porting Code Source(s) Document(s ) GLUCOSE 120 Normal (applies [facility] NONFASTING,SERUM mg/dL to non-numeric (Ammir results) Jolie Physician) SODIUM, SERUM 136 Normal (applies [facility] mEq/L to non-numeric (Ammir results) Jolie Physician) POTASSIUM, SERUM 4.2 Normal (applies [facility] mEq/L to non-numeric (Ammir results) Jolie Physician) CHLORIDE, SERUM 104 Normal (applies [facility] mEq/L to non-numeric (Ammir results) Jolie Physician) Carbon dioxide 29 mEq/L Normal (applies [facility] [VFr/PPres] in to non-numeric (Ammir Gas delivery results) Jolie system Physician) Anion gap in 7.2 Normal (applies [facility] Body fluid mEq/L to non-numeric (Ammir results) Jolie Physician) BLOOD UREA 24 mg/dL Above high normal [facility] NITROGEN (Ammir Jolie Physician) CREATININE, 0.80 Normal (applies [facility] SERUM mg/dL to non-numeric (Ammir results) Jolie Physician) BUN/CREATININE 30.00 Above high normal [facility] RATIO (Ammir Jolie Physician) CALCIUM, SERUM 9.1 Normal (applies [facility] mg/dL to non-numeric (Ammir results) Jolie Physician) TOTAL PROTEIN 6.6 g/dL Normal (applies [facility] to non-numeric (Ammir results) Jolie Physician) Microalbumin 3.8 g/dL Normal (applies [facility] [Mass/time] in to non-numeric (Ammir Urine collected results) Jolie for unspecified Physician) duration Globulin 2.8 gldl Normal (applies [facility] [Mass/time] in to non-numeric (Ammir 24 hour Urine results) Jolie Physician) A/G RATIO 1.36 Normal (applies [facility] g/dl to non-numeric (Ammir results) Jolie Physician) BILIRUBIN, TOTAL 0.2 Below low normal [facility] mg/dL (Ammir Jolie Physician) ALKALINE 80 U/L Normal (applies [facility] PHOSPHATASE, ALP to non-numeric (Ammir results) Jloie Physician) ALT (SGPT) 17 U/L Normal (applies [facility] to non-numeric (Ammir results) Jolie Physician) EGFR NON AFR 74 Above high normal [facility] DOMINICAN mL/min/1 (Ammir .73m2 Jolie Physician) AST 27 U/L Normal (applies [facility] to non-numeric (Ammir results) Jolie Physician) EGFR AFR 89 Above high normal [facility] DOMINICAN mL/min/1 (Ammir .73m2 Jolie Physician) ID Date Data Source [id number] 01/21/2019 12:00:00 AM EDT [facility] (Ammir Jolie Physician) Name Value Range Interpretation Description Data Sup porting Code Source(s) Document(s ) RBC 3.6 Normal (applies [facility] 10(6)/uL to non-numeric (Ammir results) Jolie Physician) WBC 9.5 Normal (applies [facility] 10(3)/uL to non-numeric (Ammir results) Jolie Physician) Hemoglobin 11.0 g/dL Normal (applies [facility] [Mass/volume] to non-numeric (Ammir in Mixed venous results) Jolie blood by Physician) Oximetry Hematocrit 33.1 % Below low normal [facility] [Pure volume (Ammir fraction] of Jolie Blood by Physician) Automated count MCV 93.2 fL Normal (applies [facility] to non-numeric (Ammir results) Jolie Physician) MCH 31 pg Normal (applies [facility] to non-numeric (Ammir results) Jolie Physician) MCHC 33 g/dL Normal (applies [facility] to non-numeric (Ammir results) Jolie Physician) RDWSD 43.7 fL Normal (applies [facility] to non-numeric (Ammir results) Jolie Physician) RDWCV 12.8 % Normal (applies [facility] to non-numeric (Ammir results) Jolie Physician) MPV 10.7 fL Normal (applies [facility] to non-numeric (Ammir results) Jolie Physician) Platelet Count 232 Normal (applies [facility] 10(3)/uL to non-numeric (Ammir results) Jolie Physician) Neutrophil Abs 3.73 Normal (applies [facility] 10(3)/uL to non-numeric (Ammir results) Jolie Physician) Lymphocyte Abs 3.33 Normal (applies [facility] 10(3)/uL to non-numeric (Ammir results) Jolie Physician) Monocyte Abs 1.16 Above high normal [facility] 10(3)/uL (Ammir Jolie Physician) Neutrophil % 39.40 % Normal (applies [facility] to non-numeric (Ammir results) Jolie Physician) Eosinophil Abs 1.16 Above high normal [facility] 10(3)/uL (Ammir Jolie Physician) Lymphocyte % 35 % Normal (applies [facility] to non-numeric (Ammir results) Jolie Physician) Monocyte % 12.3 % Normal (applies [facility] to non-numeric (Ammir results) Jolie Physician) Eosinophil % 12.3 % Above high normal [facility] (Ammir Jolie Physician) Basophil % 0.5 % Normal (applies [facility] to non-numeric (Ammir results) Jolie Physician) Immature 0.30 % Normal (applies [facility] Granulocyte % to non-numeric (Ammir results) Jolie Physician) ID Date Data Source [id number] 01/21/2019 12:00:00 AM EDT [facility] (Ammir Jolie Physician) Name Value Range Interpretation Description Data Sup porting Code Source(s) Document(s ) Hemoglobin A1c 5.9 % Above high normal [facility] (Ammir in Blood Jolie Physician) ID Date Data Source [id number] 10/01/2018 12:00:00 AM EDT [facility] (Ammir Jolie Physician) Name Value Range Interpretation Description Data Sup porting Code Source(s) Document(s ) T4 FREE, 1.13 Normal (applies to [facility] THYROXINE ng/dL non-numeric (Ammir results) Jolie Physician) TSH,3RD 2.92 Normal (applies to [facility] GENERATION uIU/mL non-numeric (Ammir results) Jolie Physician) ID Date Data Source [id number] 10/01/2018 12:00:00 AM EDT [facility] (Ammir Jolie Physician) Name Value Range Interpretation Description Data Sup porting Code Source(s) Document(s ) FOLATE SERUM 18.2 Above high normal [facility] (A mmir ng/mL Jolie Physician) VITAMIN B12 1075 Above high normal [facility] (Am corey pg/mL Jolie Physician) ID Date Data Source [id number] 10/01/2018 12:00:00 AM EDT [facility] (Ammir Jolie Physician) Name Value Range Interpretation Description Data Sup porting Code Source(s) Document(s ) VITAMIN D 70.24 Normal (applies to [facility] (Amm ir 25-HYDROXY ng/mL non-numeric Jolie results) Physician) ID Date Data Source [id number] 10/01/2018 12:00:00 AM EDT [facility] (Ammir Jolie Physician) Name Value Range Interpretation Description Data Sup porting Code Source(s) Document(s ) Cholesterol 188 Normal (applies [facility] [Moles/volume] mg/dL to non-numeric (Ammir in Pericardial results) Jolie fluid Physician) LDL CALCULATION 98.0 Normal (applies [facility] mg/dL to non-numeric (Ammir results) Jolie Physician) CHOL/HDL RATIO 3.24 Normal (applies [facility] ratio to non-numeric (Ammir results) Jolie Physician) HDL CHOLESTEROL 58 mg/dL Above high normal [facility] (Ammir Jolie Physician) VLDL CALCULATION 32.0 Normal (applies [facility] mg/dl to non-numeric (Ammir results) Jolie Physician) TRIGLYCERIDES 160 Above high normal [facility] mg/dL (Ammir Jolie Physician) ID Date Data Source [id number] 10/01/2018 12:00:00 AM EDT [facility] (Ammir Jolie Physician) Name Value Range Interpretation Description Data Sup porting Code Source(s) Document(s ) GLUCOSE 85 mg/dL Normal (applies [facility] NONFASTING,SERUM to non-numeric (Ammir results) Jolie Physician) SODIUM, SERUM 140 Normal (applies [facility] mEq/L to non-numeric (Ammir results) Jolie Physician) CHLORIDE, SERUM 107 Normal (applies [facility] mEq/L to non-numeric (Ammir results) Jolie Physician) POTASSIUM, SERUM 4.6 Normal (applies [facility] mEq/L to non-numeric (Ammir results) Jolie Physician) Carbon dioxide 24 mEq/L Normal (applies [facility] [VFr/PPres] in to non-numeric (Ammir Gas delivery results) Jolie system Physician) Anion gap in 13.6 Normal (applies [facility] Body fluid mEq/L to non-numeric (Ammir results) Jolie Physician) BLOOD UREA 19 mg/dL Normal (applies [facility] NITROGEN to non-numeric (Ammir results) Jolie Physician) CALCIUM, SERUM 9.2 Normal (applies [facility] mg/dL to non-numeric (Ammir results) Jolie Physician) CREATININE, 0.70 Normal (applies [facility] SERUM mg/dL to non-numeric (Ammir results) Jolie Physician) TOTAL PROTEIN 7.8 g/dL Normal (applies [facility] to non-numeric (Ammir results) Jolie Physician) Microalbumin 3.9 g/dL Normal (applies [facility] [Mass/time] in to non-numeric (Ammir Urine collected results) Jolie for unspecified Physician) duration A/G RATIO 1.00 Normal (applies [facility] g/dl to non-numeric (Ammir results) Jolie Physician) Globulin 3.9 gldl Normal (applies [facility] [Mass/time] in to non-numeric (Ammir 24 hour Urine results) Jolie Physician) BILIRUBIN, TOTAL 0.2 Below low normal [facility] mg/dL (Ammir Jolie Physician) ALKALINE 97 U/L Normal (applies [facility] PHOSPHATASE, ALP to non-numeric (Ammir results) Ojlie Physician) ALT (SGPT) 18 U/L Normal (applies [facility] to non-numeric (Ammir results) Jolie Physician) AST 25 U/L Normal (applies [facility] to non-numeric (Ammir results) Jolie Physician) EGFR NON AFR 86 Above high normal [facility] DOMIN[place] mL/min/1 (Ammir .73m2 Jolie Physician) EGFR AFR 104 Above high normal [facility] DOMIN[place] mL/min/1 (Ammir .73m2 Jolie Physician) ID Date Data Source [id number] 10/01/2018 12:00:00 AM EDT [facility] (Ammir Jolie Physician) Name Value Range Interpretation Description Data Sup porting Code Source(s) Document(s ) WBC 8.6 Normal (applies [facility] 10(3)/uL to non-numeric (Ammir results) Jolie Physician) RBC 3.8 Normal (applies [facility] 10(6)/uL to non-numeric (Ammir results) Jolie Physician) Hemoglobin 11.8 g/dL Normal (applies [facility] [Mass/volume] to non-numeric (Ammir in Mixed venous results) Jolie blood by Physician) Oximetry Hematocrit 34.4 % Normal (applies [facility] [Pure volume to non-numeric (Ammir fraction] of results) Jolie Blood by Physician) Automated count MCV 90.8 fL Normal (applies [facility] to non-numeric (Ammir results) Jolie Physician) MCH 31 pg Normal (applies [facility] to non-numeric (Ammir results) Jolie Physician) MCHC 34 g/dL Normal (applies [facility] to non-numeric (Ammir results) Jolie Physician) RDWSD 43.4 fL Normal (applies [facility] to non-numeric (Ammir results) Jolie Physician) Platelet Count 211 Normal (applies [facility] 10(3)/uL to non-numeric (Ammir results) Jolie Physician) RDWCV 13.3 % Normal (applies [facility] to non-numeric (Ammir results) Jolie Physician) MPV 10.7 fL Normal (applies [facility] to non-numeric (Ammir results) Jolie Physician) Neutrophil Abs 4.03 Normal (applies [facility] 10(3)/uL to non-numeric (Ammir results) Jolie Physician) Monocyte Abs 1.13 Above high normal [facility] 10(3)/uL (Ammir Jolie Physician) Lymphocyte Abs 3.15 Normal (applies [facility] 10(3)/uL to non-numeric (Ammir results) Jolie Physician) Eosinophil Abs 0.18 Normal (applies [facility] 10(3)/uL to non-numeric (Ammir results) Jolie Physician) Neutrophil % 47.00 % Normal (applies [facility] to non-numeric (Ammir results) Jolie Physician) Lymphocyte % 37 % Normal (applies [facility] to non-numeric (Ammir results) Jolie Physician) Monocyte % 13.2 % Above high normal [facility] (Ammir Jolie Physician) Eosinophil % 2.1 % Normal (applies [facility] to non-numeric (Ammir results) Jolie Physician) Basophil % 0.7 % Normal (applies [facility] to non-numeric (Ammir results) Jolie Physician) Immature 0.20 % Normal (applies [facility] Granulocyte % to non-numeric (Ammir results) Jolie Physician) ID Date Data Source [id number] 10/01/2018 12:00:00 AM EDT [facility] (Ammir Jolie Physician) Name Value Range Interpretation Description Data Sup porting Code Source(s) Document(s ) Hemoglobin A1c 6.0 % Above high normal [facility] (Ammir in Blood Jolie Physician) ID Date Data Source [id number] 10/01/2018 12:00:00 AM EDT [facility] (Ammir Jolie Physician) Name Value Range Interpretation Description Data Sup porting Code Source(s) Document(s ) T4 FREE, 1.13 Normal (applies to [facility] THYROXINE ng/dL non-numeric (Ammir results) Jolie Physician) TSH,3RD 2.92 Normal (applies to [facility] GENERATION uIU/mL non-numeric (Ammir results) Jolie Physician) ID Date Data Source [id number] 10/01/2018 12:00:00 AM EDT [facility] (Ammir Jolie Physician) Name Value Range Interpretation Description Data Sup porting Code Source(s) Document(s ) FOLATE SERUM 18.2 Above high normal [facility] (A mmir ng/mL Jolie Physician) VITAMIN B12 1075 Above high normal [facility] (Am corey pg/mL Jolie Physician) ID Date Data Source [id number] 10/01/2018 12:00:00 AM EDT [facility] (Ammir Jolie Physician) Name Value Range Interpretation Description Data Sup porting Code Source(s) Document(s ) VITAMIN D 70.24 Normal (applies to [facility] (Amm ir 25-HYDROXY ng/mL non-numeric Jolie results) Physician) ID Date Data Source [id number] 10/01/2018 12:00:00 AM EDT [facility] (Ammir Jolie Physician) Name Value Range Interpretation Description Data Sup porting Code Source(s) Document(s ) Cholesterol 188 Normal (applies [facility] [Moles/volume] mg/dL to non-numeric (Ammir in Pericardial results) Jolie fluid Physician) LDL CALCULATION 98.0 Normal (applies [facility] mg/dL to non-numeric (Ammir results) Jolie Physician) CHOL/HDL RATIO 3.24 Normal (applies [facility] ratio to non-numeric (Ammir results) Jolie Physician) HDL CHOLESTEROL 58 mg/dL Above high normal [facility] (Ammir Jolie Physician) TRIGLYCERIDES 160 Above high normal [facility] mg/dL (Ammir Jolie Physician) VLDL CALCULATION 32.0 Normal (applies [facility] mg/dl to non-numeric (Ammir results) Jolie Physician) ID Date Data Source [id number] 10/01/2018 12:00:00 AM EDT [facility] (Ammir Jolie Physician) Name Value Range Interpretation Description Data Sup porting Code Source(s) Document(s ) GLUCOSE 85 mg/dL Normal (applies [facility] NONFASTING,SERUM to non-numeric (Ammir results) Jolie Physician) SODIUM, SERUM 140 Normal (applies [facility] mEq/L to non-numeric (Ammir results) Jolie Physician) POTASSIUM, SERUM 4.6 Normal (applies [facility] mEq/L to non-numeric (Ammir results) Jolie Physician) CHLORIDE, SERUM 107 Normal (applies [facility] mEq/L to non-numeric (Ammir results) Jolie Physician) Carbon dioxide 24 mEq/L Normal (applies [facility] [VFr/PPres] in to non-numeric (Ammir Gas delivery results) Jolie system Physician) Anion gap in 13.6 Normal (applies [facility] Body fluid mEq/L to non-numeric (Ammir results) Jolie Physician) BLOOD UREA 19 mg/dL Normal (applies [facility] NITROGEN to non-numeric (Ammir results) Jolie Physician) CREATININE, 0.70 Normal (applies [facility] SERUM mg/dL to non-numeric (Ammir results) Jolie Physician) CALCIUM, SERUM 9.2 Normal (applies [facility] mg/dL to non-numeric (Ammir results) Jolie Physician) TOTAL PROTEIN 7.8 g/dL Normal (applies [facility] to non-numeric (Ammir results) Jolie Physician) Globulin 3.9 gldl Normal (applies [facility] [Mass/time] in to non-numeric (Ammir 24 hour Urine results) Jolie Physician) Microalbumin 3.9 g/dL Normal (applies [facility] [Mass/time] in to non-numeric (Ammir Urine collected results) Jolie for unspecified Physician) duration A/G RATIO 1.00 Normal (applies [facility] g/dl to non-numeric (Ammir results) Jolie Physician) BILIRUBIN, TOTAL 0.2 Below low normal [facility] mg/dL (Ammir Jolie Physician) ALKALINE 97 U/L Normal (applies [facility] PHOSPHATASE, ALP to non-numeric (Ammir results) Jolie Physician) ALT (SGPT) 18 U/L Normal (applies [facility] to non-numeric (Ammir results) Jolie Physician) AST 25 U/L Normal (applies [facility] to non-numeric (Ammir results) Jolie Physician) EGFR NON AFR 86 Above high normal [facility] DOMINICAN mL/min/1 (Ammir .73m2 Jolie Physician) EGFR AFR 104 Above high normal [facility] DOMINICAN mL/min/1 (Ammir .73m2 Jolie Physician) ID Date Data Source [id number] 10/01/2018 12:00:00 AM EDT [facility] (Ammir Jolie Physician) Name Value Range Interpretation Description Data Sup porting Code Source(s) Document(s ) RBC 3.8 Normal (applies [facility] 10(6)/uL to non-numeric (Ammir results) Jolie Physician) WBC 8.6 Normal (applies [facility] 10(3)/uL to non-numeric (Ammir results) Jolie Physician) Hemoglobin 11.8 g/dL Normal (applies [facility] [Mass/volume] to non-numeric (Ammir in Mixed venous results) Jolie blood by Physician) Oximetry Hematocrit 34.4 % Normal (applies [facility] [Pure volume to non-numeric (Ammir fraction] of results) Jolie Blood by Physician) Automated count MCH 31 pg Normal (applies [facility] to non-numeric (Ammir results) Jolie Physician) MCV 90.8 fL Normal (applies [facility] to non-numeric (Ammir results) Jolie Physician) MCHC 34 g/dL Normal (applies [facility] to non-numeric (Ammir results) Jolie Physician) RDWSD 43.4 fL Normal (applies [facility] to non-numeric (Ammir results) Jolie Physician) RDWCV 13.3 % Normal (applies [facility] to non-numeric (Ammir results) Jolie Physician) MPV 10.7 fL Normal (applies [facility] to non-numeric (Ammir results) Jolie Physician) Platelet Count 211 Normal (applies [facility] 10(3)/uL to non-numeric (Ammir results) Jolie Physician) Neutrophil Abs 4.03 Normal (applies [facility] 10(3)/uL to non-numeric (Ammir results) Jolie Physician) Lymphocyte Abs 3.15 Normal (applies [facility] 10(3)/uL to non-numeric (Ammir results) Jolie Physician) Monocyte Abs 1.13 Above high normal [facility] 10(3)/uL (Ammir Jolie Physician) Neutrophil % 47.00 % Normal (applies [facility] to non-numeric (Ammir results) Jolie Physician) Eosinophil Abs 0.18 Normal (applies [facility] 10(3)/uL to non-numeric (Ammir results) Jolie Physician) Lymphocyte % 37 % Normal (applies [facility] to non-numeric (Ammir results) Jolie Physician) Monocyte % 13.2 % Above high normal [facility] (Ammir Jolie Physician) Basophil % 0.7 % Normal (applies [facility] to non-numeric (Ammir results) Jolie Physician) Eosinophil % 2.1 % Normal (applies [facility] to non-numeric (Ammir results) Jolie Physician) Immature 0.20 % Normal (applies [facility] Granulocyte % to non-numeric (Ammir results) Jolie Physician) ID Date Data Source [id number] 10/01/2018 12:00:00 AM EDT [facility] (Ammir Jolie Physician) Name Value Range Interpretation Description Data Sup porting Code Source(s) Document(s ) Hemoglobin A1c 6.0 % Above high normal [facility] (Ammir in Blood Jolie Physician) ID Date Data Source [id number] 02/19/2018 12:00:00 AM EDT [facility] (Ammir Jolie Physician) Name Value Range Interpretation Description Data Sup porting Code Source(s) Document(s ) VITAMIN D 69.01 Normal (applies to [facility] (Amm ir 25-HYDROXY ng/mL non-numeric Jolie results) Physician) ID Date Data Source [id number] 02/19/2018 12:00:00 AM EDT [facility] (Ammir Jolie Physician) Name Value Range Interpretation Description Data Sup porting Code Source(s) Document(s ) GLUCOSE 107 Normal (applies [facility] NONFASTING,SERUM mg/dL to non-numeric (Ammir results) Jolie Physician) SODIUM, SERUM 140 Normal (applies [facility] mEq/L to non-numeric (Ammir results) Jolie Physician) POTASSIUM, SERUM 4.6 Normal (applies [facility] mEq/L to non-numeric (Ammir results) Jolie Physician) CHLORIDE, SERUM 105 Normal (applies [facility] mEq/L to non-numeric (Ammir results) Jolie Physician) Carbon dioxide 29 mEq/L Normal (applies [facility] [VFr/PPres] in to non-numeric (Ammir Gas delivery results) Jolie system Physician) Anion gap in 10.6 Normal (applies [facility] Body fluid mEq/L to non-numeric (Ammir results) Jolie Physician) BLOOD UREA 22 mg/dL Normal (applies [facility] NITROGEN to non-numeric (Ammir results) Jolie Physician) CREATININE, 1.10 Above high normal [facility] SERUM mg/dL (Ammir Jolie Physician) BUN/CREATININE 20.00 Normal (applies [facility] RATIO to non-numeric (Ammir results) Jolie Physician) CALCIUM, SERUM 9.5 Normal (applies [facility] mg/dL to non-numeric (Ammir results) Jolie Physician) TOTAL PROTEIN 7.1 g/dL Normal (applies [facility] to non-numeric (Ammir results) Jolie Physician) Microalbumin 4.1 g/dL Normal (applies [facility] [Mass/time] in to non-numeric (Ammir Urine collected results) Jolie for unspecified Physician) duration Globulin 3.0 gldl Normal (applies [facility] [Mass/time] in to non-numeric (Ammir 24 hour Urine results) Jolie Physician) A/G RATIO 1.37 Normal (applies [facility] g/dl to non-numeric (Ammir results) Jolie Physician) BILIRUBIN, TOTAL 0.3 Normal (applies [facility] mg/dL to non-numeric (Ammir results) Jolie Physician) ALKALINE 89 U/L Normal (applies [facility] PHOSPHATASE, ALP to non-numeric (Ammir results) Jolie Physician) AST 29 U/L Normal (applies [facility] to non-numeric (Ammir results) Jolie Physician) ALT (SGPT) 23 U/L Normal (applies [facility] to non-numeric (Ammir results) Jolie Physician) EGFR NON AFR 51 Above high normal [facility] DOMINICAN mL/min/1 (Ammir .73m2 Jolie Physician) EGFR AFR 62 Above high normal [facility] DOMINICAN mL/min/1 (Ammir .73m2 Jolie Physician) ID Date Data Source [id number] 02/19/2018 12:00:00 AM EDT [facility] (Ammir Jolie Physician) Name Value Range Interpretation Description Data Sup porting Code Source(s) Document(s ) WBC 9.3 Normal (applies to [facility] 10(3)/uL non-numeric (Ammir results) Jolie Physician) RBC 3.9 Normal (applies to [facility] 10(6)/uL non-numeric (Ammir results) Jolie Physician) Hemoglobin 12.1 g/dL Normal (applies to [facility] [Mass/volume] non-numeric (Ammir in Mixed results) Jolie venous blood Physician) by Oximetry Hematocrit 36.0 % Normal (applies to [facility] [Pure volume non-numeric (Ammir fraction] of results) Jolie Blood by Physician) Automated count MCV 92.3 fL Normal (applies to [facility] non-numeric (Ammir results) Jolie Physician) MCH 31 pg Normal (applies to [facility] non-numeric (Ammir results) Jolie Physician) MCHC 34 g/dL Normal (applies to [facility] non-numeric (Ammir results) Jolie Physician) RDWSD 42.5 fL Normal (applies to [facility] non-numeric (Ammir results) Jolie Physician) RDWCV 12.8 % Normal (applies to [facility] non-numeric (Ammir results) Jolei Physician) PLT 216 Normal (applies to [facility] 10(3)/uL non-numeric (Ammir results) Jolie Physician) MPV 11.3 fL Normal (applies to [facility] non-numeric (Ammir results) Jolie Physician) LY# 2.93 Normal (applies to [facility] 10(3)/uL non-numeric (Ammir results) Jolie Physician) NE# 5.15 Normal (applies to [facility] 10(3)/uL non-numeric (Ammir results) Jolie Physician) MO# 1.00 Above high normal [facility] 10(3)/uL (Ammir Jolie Physician) EO# 0.15 Normal (applies to [facility] 10(3)/uL non-numeric (Ammir results) Jolie Physician) IG# 0.03 Normal (applies to [facility] 10(3)/uL non-numeric (Ammir results) Jolie Physician) NE% 55.20 % Normal (applies to [facility] non-numeric (Ammir results) Jolie Physician) LY% 31 % Normal (applies to [facility] non-numeric (Ammir results) Jolie Physician) MO% 10.7 % Normal (applies to [facility] non-numeric (Ammir results) Jolie Physician) BA% 0.8 % Normal (applies to [facility] non-numeric (Ammir results) Jolie Physician) EO% 1.6 % Normal (applies to [facility] non-numeric (Ammir results) Jolie Physician) IG% 0.30 % Normal (applies to [facility] non-numeric (Ammir results) Jolie Physician) ID Date Data Source [id number] 02/19/2018 12:00:00 AM EDT [facility] (Ammir Jolie Physician) Name Value Range Interpretation Description Data Sup porting Code Source(s) Document(s ) Hemoglobin A1c 6.0 % Above high normal [facility] (Ammir in Blood Jolie Physician) ID Date Data Source [id number] 02/19/2018 12:00:00 AM EDT [facility] (Ammir Jolie Physician) Name Value Range Interpretation Description Data Sup porting Code Source(s) Document(s ) T4 FREE, 1.07 Normal (applies to [facility] THYROXINE ng/dL non-numeric (Ammir results) Jolie Physician) TSH,3RD 3.15 Normal (applies to [facility] GENERATION uIU/mL non-numeric (Ammir results) Jolie Physician) ID Date Data Source [id number] 02/19/2018 12:00:00 AM EDT [facility] (Ammir Jolie Physician) Name Value Range Interpretation Description Data Sup porting Code Source(s) Document(s ) FOLATE SERUM 64.2 Above high normal [facility] (A mmir ng/mL Jolie Physician) VITAMIN B12 1066 Above high normal [facility] (Am corey pg/mL Jolie Physician) ID Date Data Source [id number] 02/19/2018 12:00:00 AM EDT [facility] (Ammir Jolie Physician) Name Value Range Interpretation Description Data Sup porting Code Source(s) Document(s ) VITAMIN D 69.01 Normal (applies to [facility] (Amm ir 25-HYDROXY ng/mL non-numeric Jolie results) Physician) ID Date Data Source [id number] 02/19/2018 12:00:00 AM EDT [facility] (Ammir Jolie Physician) Name Value Range Interpretation Description Data Sup porting Code Source(s) Document(s ) GLUCOSE 107 Normal (applies [facility] NONFASTING,SERUM mg/dL to non-numeric (Ammir results) Jolie Physician) SODIUM, SERUM 140 Normal (applies [facility] mEq/L to non-numeric (Ammir results) Jolie Physician) POTASSIUM, SERUM 4.6 Normal (applies [facility] mEq/L to non-numeric (Ammir results) Ojlie Physician) Carbon dioxide 29 mEq/L Normal (applies [facility] [VFr/PPres] in to non-numeric (Ammir Gas delivery results) Jolie system Physician) CHLORIDE, SERUM 105 Normal (applies [facility] mEq/L to non-numeric (Ammir results) Jolie Physician) Anion gap in 10.6 Normal (applies [facility] Body fluid mEq/L to non-numeric (Ammir results) Jolie Physician) CREATININE, 1.10 Above high normal [facility] SERUM mg/dL (Ammir Jolie Physician) BLOOD UREA 22 mg/dL Normal (applies [facility] NITROGEN to non-numeric (Ammir results) Jolie Physician) BUN/CREATININE 20.00 Normal (applies [facility] RATIO to non-numeric (Ammir results) Jolie Physician) CALCIUM, SERUM 9.5 Normal (applies [facility] mg/dL to non-numeric (Ammir results) Jolie Physician) TOTAL PROTEIN 7.1 g/dL Normal (applies [facility] to non-numeric (Ammir results) Jolie Physician) Microalbumin 4.1 g/dL Normal (applies [facility] [Mass/time] in to non-numeric (Ammir Urine collected results) Jolie for unspecified Physician) duration Globulin 3.0 gldl Normal (applies [facility] [Mass/time] in to non-numeric (Ammir 24 hour Urine results) Jolie Physician) A/G RATIO 1.37 Normal (applies [facility] g/dl to non-numeric (Ammir results) Jolie Physician) BILIRUBIN, TOTAL 0.3 Normal (applies [facility] mg/dL to non-numeric (Ammir results) Jolie Physician) ALKALINE 89 U/L Normal (applies [facility] PHOSPHATASE, ALP to non-numeric (Ammir results) Jolie Physician) ALT (SGPT) 23 U/L Normal (applies [facility] to non-numeric (Ammir results) Jolie Physician) AST 29 U/L Normal (applies [facility] to non-numeric (Ammir results) Jolie Physician) EGFR NON AFR 51 Above high normal [facility] DOMINICAN mL/min/1 (Ammir .73m2 Jolie Physician) EGFR AFR 62 Above high normal [facility] DOMINICAN mL/min/1 (Ammir .73m2 Jolie Physician) ID Date Data Source [id number] 02/19/2018 12:00:00 AM EDT [facility] (Ammir Jolie Physician) Name Value Range Interpretation Description Data Sup porting Code Source(s) Document(s ) WBC 9.3 Normal (applies to [facility] 10(3)/uL non-numeric (Ammir results) Jolie Physician) RBC 3.9 Normal (applies to [facility] 10(6)/uL non-numeric (Ammir results) Jolie Physician) Hematocrit 36.0 % Normal (applies to [facility] [Pure volume non-numeric (Ammir fraction] of results) Jolie Blood by Physician) Automated count Hemoglobin 12.1 g/dL Normal (applies to [facility] [Mass/volume] non-numeric (Ammir in Mixed results) Jolie venous blood Physician) by Oximetry MCV 92.3 fL Normal (applies to [facility] non-numeric (Ammir results) Jolie Physician) MCH 31 pg Normal (applies to [facility] non-numeric (Ammir results) Jolie Physician) RDWSD 42.5 fL Normal (applies to [facility] non-numeric (Ammir results) Jolie Physician) MCHC 34 g/dL Normal (applies to [facility] non-numeric (Ammir results) Jolie Physician) RDWCV 12.8 % Normal (applies to [facility] non-numeric (Ammir results) Jolie Physician) MPV 11.3 fL Normal (applies to [facility] non-numeric (Ammir results) Jolie Physician) PLT 216 Normal (applies to [facility] 10(3)/uL non-numeric (Ammir results) Jolie Physician) NE# 5.15 Normal (applies to [facility] 10(3)/uL non-numeric (Ammir results) Jolie Physician) LY# 2.93 Normal (applies to [facility] 10(3)/uL non-numeric (Ammir results) Jolie Physician) EO# 0.15 Normal (applies to [facility] 10(3)/uL non-numeric (Ammir results) Jolie Physician) MO# 1.00 Above high normal [facility] 10(3)/uL (Ammir Jolie Physician) IG# 0.03 Normal (applies to [facility] 10(3)/uL non-numeric (Ammir results) Jolie Physician) NE% 55.20 % Normal (applies to [facility] non-numeric (Ammir results) Jolie Physician) MO% 10.7 % Normal (applies to [facility] non-numeric (Ammir results) Jolie Physician) LY% 31 % Normal (applies to [facility] non-numeric (Ammir results) Jolie Physician) EO% 1.6 % Normal (applies to [facility] non-numeric (Ammir results) Jolie Physician) BA% 0.8 % Normal (applies to [facility] non-numeric (Ammir results) Jolie Physician) IG% 0.30 % Normal (applies to [facility] non-numeric (Ammir results) Jolie Physician) ID Date Data Source [id number] 02/19/2018 12:00:00 AM EDT [facility] (Ammir Jolie Physician) Name Value Range Interpretation Description Data Sup porting Code Source(s) Document(s ) Hemoglobin A1c 6.0 % Above high normal [facility] (Ammir in Blood Jolie Physician) ID Date Data Source [id number] 02/19/2018 12:00:00 AM EDT [facility] (Ammir Jolie Physician) Name Value Range Interpretation Description Data Sup porting Code Source(s) Document(s ) T4 FREE, 1.07 Normal (applies to [facility] THYROXINE ng/dL non-numeric (Ammir results) Jolie Physician) TSH,3RD 3.15 Normal (applies to [facility] GENERATION uIU/mL non-numeric (Ammir results) Jolie Physician) ID Date Data Source [id number] 02/19/2018 12:00:00 AM EDT [facility] (Ammir Jolie Physician) Name Value Range Interpretation Description Data Sup porting Code Source(s) Document(s ) FOLATE SERUM 64.2 Above high normal [facility] (A mmir ng/mL Jolie Physician) VITAMIN B12 1066 Above high normal [facility] (Am corey pg/mL Jolie Physician) ID Date Data Source [id number] 12/03/2017 12:00:00 AM EDT [facility] (Ammir Jolie Physician) Name Value Range Interpretation Description Data Sup porting Code Source(s) Document(s ) GLUCOSE 96 mg/dL Normal (applies [facility] NONFASTING,SERUM to non-numeric (Ammir results) Jolie Physician) SODIUM, SERUM 139 Normal (applies [facility] mEq/L to non-numeric (Ammir results) Jolie Physician) POTASSIUM, SERUM 4.5 Normal (applies [facility] mEq/L to non-numeric (Ammir results) Jolie Physician) CHLORIDE, SERUM 101 Normal (applies [facility] mEq/L to non-numeric (Ammir results) Jolie Physician) Carbon dioxide 28 mEq/L Normal (applies [facility] [VFr/PPres] in to non-numeric (Ammir Gas delivery results) Jolie system Physician) Anion gap in 14.5 Normal (applies [facility] Body fluid mEq/L to non-numeric (Ammir results) Jolie Physician) CREATININE, 0.70 Normal (applies [facility] SERUM mg/dL to non-numeric (Ammir results) Jolie Physician) BLOOD UREA 14 mg/dL Normal (applies [facility] NITROGEN to non-numeric (Ammir results) Jolie Physician) CALCIUM, SERUM 9.9 Normal (applies [facility] mg/dL to non-numeric (Ammir results) Jolie Physician) TOTAL PROTEIN 7.1 g/dL Normal (applies [facility] to non-numeric (Ammir results) Jolie Physician) Globulin 2.8 gldl Normal (applies [facility] [Mass/time] in to non-numeric (Ammir 24 hour Urine results) Jolie Physician) Microalbumin 4.3 g/dL Normal (applies [facility] [Mass/time] in to non-numeric (Ammir Urine collected results) Jolie for unspecified Physician) duration A/G RATIO 1.54 Normal (applies [facility] g/dl to non-numeric (Ammir results) Jolie Physician) BILIRUBIN, TOTAL 0.3 Normal (applies [facility] mg/dL to non-numeric (Ammir results) Jolie Physician) ALKALINE 85 U/L Normal (applies [facility] PHOSPHATASE, ALP to non-numeric (Ammir results) Jolie Physician) ALT (SGPT) 19 U/L Normal (applies [facility] to non-numeric (Ammir results) Jolie Physician) AST 24 U/L Normal (applies [facility] to non-numeric (Ammir results) Jolie Physician) EGFR NON AFR 86 Above high normal [facility] DOMINICAN mL/min/1 (Ammir .73m2 Jolie Physician) EGFR AFR 105 Above high normal [facility] DOMINICAN mL/min/1 (Ammir .73m2 Jolie Physician) ID Date Data Source [id number] 12/03/2017 12:00:00 AM EDT [facility] (Ammir Jolie Physician) Name Value Range Interpretation Description Data Sup porting Code Source(s) Document(s ) WBC 10.4 Normal (applies to [facility] 10(3)/uL non-numeric (Ammir results) Jolie Physician) RBC 4.4 Normal (applies to [facility] 10(6)/uL non-numeric (Ammir results) Jolie Physician) Hemoglobin 13.4 g/dL Normal (applies to [facility] [Mass/volume] non-numeric (Ammir in Mixed results) Jolie venous blood Physician) by Oximetry Hematocrit 40.0 % Normal (applies to [facility] [Pure volume non-numeric (Ammir fraction] of results) Jolie Blood by Physician) Automated count MCH 31 pg Normal (applies to [facility] non-numeric (Ammir results) Jolie Physician) MCV 91.3 fL Normal (applies to [facility] non-numeric (Ammir results) Jolie Physician) MCHC 34 g/dL Normal (applies to [facility] non-numeric (Ammir results) Jolie Physician) RDWSD 41.1 fL Normal (applies to [facility] non-numeric (Ammir results) Jolie Physician) RDWCV 12.3 % Normal (applies to [facility] non-numeric (Ammir results) Jolie Physician) PLT 203 Normal (applies to [facility] 10(3)/uL non-numeric (Ammir results) Jolie Physician) MPV 12.4 fL Normal (applies to [facility] non-numeric (Ammir results) Jolie Physician) NE# 6.79 Above high normal [facility] 10(3)/uL (Ammir Jolie Physician) LY# 2.39 Normal (applies to [facility] 10(3)/uL non-numeric (Ammir results) Jolie Physician) MO# 1.10 Above high normal [facility] 10(3)/uL (Ammir Jolie Physician) EO# 0.06 Normal (applies to [facility] 10(3)/uL non-numeric (Ammir results) Jolie Physician) IG# 0.02 Normal (applies to [facility] 10(3)/uL non-numeric (Ammir results) Jolie Physician) LY% 23 % Normal (applies to [facility] non-numeric (Ammir results) Jolie Physician) NE% 65.10 % Normal (applies to [facility] non-numeric (Ammir results) Jolie Physician) MO% 10.5 % Normal (applies to [facility] non-numeric (Ammir results) Jolie Physician) EO% 0.6 % Normal (applies to [facility] non-numeric (Ammir results) Jolie Physician) IG% 0.20 % Normal (applies to [facility] non-numeric (Ammir results) Jolie Physician) BA% 0.7 % Normal (applies to [facility] non-numeric (Ammir results) Jolie Physician) ID Date Data Source [id number] 12/03/2017 12:00:00 AM EDT [facility] (Ammir Jolie Physician) Name Value Range Interpretation Code Description Data Jeny rce(s) Supporting Document(s ) APTT 31.00 sec Normal (applies to [facility] (Amm ir non-numeric results) Jolie Physician) ID Date Data Source [id number] 12/03/2017 12:00:00 AM EDT [facility] (Ammir Jolie Physician) Name Value Range Interpretation Description Data Sup porting Code Source(s) Document(s ) PROTHROMBIN 13.0 sec Normal (applies [facility] TIME, PT to non-numeric (Ammir results) Jolie Physician) INR 0.95 Normal (applies [facility] to non-numeric (Ammir results) Jolie Physician) ID Date Data Source [id number] 12/03/2017 12:00:00 AM EDT [facility] (Ammir Jolie Physician) Name Value Range Interpretation Description Data Sup porting Code Source(s) Document(s ) GLUCOSE 96 mg/dL Normal (applies [facility] NONFASTING,SERUM to non-numeric (Ammir results) Jolie Physician) SODIUM, SERUM 139 Normal (applies [facility] mEq/L to non-numeric (Ammir results) Jolie Physician) POTASSIUM, SERUM 4.5 Normal (applies [facility] mEq/L to non-numeric (Ammir results) Jolie Physician) CHLORIDE, SERUM 101 Normal (applies [facility] mEq/L to non-numeric (Ammir results) Jolie Physician) Carbon dioxide 28 mEq/L Normal (applies [facility] [VFr/PPres] in to non-numeric (Ammir Gas delivery results) Jolie system Physician) BLOOD UREA 14 mg/dL Normal (applies [facility] NITROGEN to non-numeric (Ammir results) Jolie Physician) Anion gap in 14.5 Normal (applies [facility] Body fluid mEq/L to non-numeric (Ammir results) Jolie Physician) CREATININE, 0.70 Normal (applies [facility] SERUM mg/dL to non-numeric (Ammir results) Jolie Physician) CALCIUM, SERUM 9.9 Normal (applies [facility] mg/dL to non-numeric (Ammir results) Jolie Physician) TOTAL PROTEIN 7.1 g/dL Normal (applies [facility] to non-numeric (Ammir results) Jolie Physician) Microalbumin 4.3 g/dL Normal (applies [facility] [Mass/time] in to non-numeric (Ammir Urine collected results) Jolie for unspecified Physician) duration Globulin 2.8 gldl Normal (applies [facility] [Mass/time] in to non-numeric (Ammir 24 hour Urine results) Jolie Physician) A/G RATIO 1.54 Normal (applies [facility] g/dl to non-numeric (Ammir results) Jolie Physician) ALKALINE 85 U/L Normal (applies [facility] PHOSPHATASE, ALP to non-numeric (Ammir results) Jolie Physician) BILIRUBIN, TOTAL 0.3 Normal (applies [facility] mg/dL to non-numeric (Ammir results) Jolie Physician) ALT (SGPT) 19 U/L Normal (applies [facility] to non-numeric (Ammir results) Jolie Physician) EGFR NON AFR 86 Above high normal [facility] DOMINICAN mL/min/1 (Ammir .73m2 Jolie Physician) AST 24 U/L Normal (applies [facility] to non-numeric (Ammir results) Jolie Physician) EGFR AFR 105 Above high normal [facility] DOMINICAN mL/min/1 (Ammir .73m2 Jolie Physician) ID Date Data Source [id number] 12/03/2017 12:00:00 AM EDT [facility] (Ammir Jolie Physician) Name Value Range Interpretation Description Data Sup porting Code Source(s) Document(s ) WBC 10.4 Normal (applies to [facility] 10(3)/uL non-numeric (Ammir results) Jolie Physician) RBC 4.4 Normal (applies to [facility] 10(6)/uL non-numeric (Ammir results) Jolie Physician) Hemoglobin 13.4 g/dL Normal (applies to [facility] [Mass/volume] non-numeric (Ammir in Mixed results) Jolie venous blood Physician) by Oximetry Hematocrit 40.0 % Normal (applies to [facility] [Pure volume non-numeric (Ammir fraction] of results) Jolie Blood by Physician) Automated count MCH 31 pg Normal (applies to [facility] non-numeric (Ammir results) Jolie Physician) MCV 91.3 fL Normal (applies to [facility] non-numeric (Ammir results) Jolie Physician) MCHC 34 g/dL Normal (applies to [facility] non-numeric (Ammir results) Jolie Physician) RDWSD 41.1 fL Normal (applies to [facility] non-numeric (Ammir results) Jolie Physician) RDWCV 12.3 % Normal (applies to [facility] non-numeric (Ammir results) Jolie Physician) PLT 203 Normal (applies to [facility] 10(3)/uL non-numeric (Ammir results) Jolie Physician) MPV 12.4 fL Normal (applies to [facility] non-numeric (Ammir results) Jolie Physician) NE# 6.79 Above high normal [facility] 10(3)/uL (Ammir Jolie Physician) MO# 1.10 Above high normal [facility] 10(3)/uL (Ammir Jolie Physician) LY# 2.39 Normal (applies to [facility] 10(3)/uL non-numeric (Ammir results) Jolie Physician) EO# 0.06 Normal (applies to [facility] 10(3)/uL non-numeric (Ammir results) Jolie Physician) IG# 0.02 Normal (applies to [facility] 10(3)/uL non-numeric (Ammir results) Jolie Physician) NE% 65.10 % Normal (applies to [facility] non-numeric (Ammir results) Jolie Physician) LY% 23 % Normal (applies to [facility] non-numeric (Ammir results) Jolie Physician) MO% 10.5 % Normal (applies to [facility] non-numeric (Ammir results) Jolie Physician) EO% 0.6 % Normal (applies to [facility] non-numeric (Ammir results) Jolie Physician) IG% 0.20 % Normal (applies to [facility] non-numeric (Ammir results) Jolie Physician) BA% 0.7 % Normal (applies to [facility] non-numeric (Ammir results) Jolie Physician) ID Date Data Source [id number] 12/03/2017 12:00:00 AM EDT [facility] (Ammir Jolie Physician) Name Value Range Interpretation Code Description Data Jeny rce(s) Supporting Document(s ) APTT 31.00 sec Normal (applies to [facility] (Amm ir non-numeric results) Jolie Physician) ID Date Data Source [id number] 12/03/2017 12:00:00 AM EDT [facility] (Ammir Jolie Physician) Name Value Range Interpretation Description Data Sup porting Code Source(s) Document(s ) PROTHROMBIN 13.0 sec Normal (applies [facility] TIME, PT to non-numeric (Ammir results) Jolie Physician) INR 0.95 Normal (applies [facility] to non-numeric (Ammir results) Jolie Physician) Procedure Social History Code Duration Value Status Description Data Source(s ) Smoking 02/17/2020 Born in [facility] completed Born in [facility] (St 12:00:00 AM EDT [place]. Came to the [facility]. Came to the [facility] [place]. 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 Smoking 02/17/2020 Unknown if ever completed Unknown if ever MEDG EN (St 12:00:00 AM EDT smoked smoked [facility] [place], ) Smoking 01/27/2020 - Cigarettes: completed - Cigarettes: [facility] ( Ammir 12:00:00 AM EDT FORMER SMOKER (20 FORMER SMOKER (20 Jolie YEARS OF YEARS OF SMOKING). Physic garcía) SMOKING). Smoking 01/27/2020 Unknown if ever completed Unknown if ever MEDG EN (Ammir 12:00:00 AM EDT smoked smoked Jolie Physician) Smoking 01/18/2020 - Cigarettes: completed - Cigarettes: [facility] ( Ammir 12:00:00 AM EDT FORMER SMOKER (20 FORMER SMOKER (20 Jolie YEARS OF YEARS OF SMOKING). Physic garcía) SMOKING). Smoking 01/18/2020 Unknown if ever completed Unknown if ever MEDG EN (Ammir 12:00:00 AM EDT smoked smoked Jolie Physician) Vital Signs ID Date Data Source UNK Name Value Range Interpretation Code Description Data Source(s) Heart rate 83 /min 83 /min [facility] ([facility] [place] , ) Respiratory rate 14 /min 14 /min [facility] ( [facility] , ) Body mass index 28.7 kg/m2 28.7 kg/m2 [facility] (S t (BMI) [Ratio] [facility] [place], ) Diastolic blood 72 mm[Hg] 72 mm[Hg] [facility] (S t pressure [facility] [place]) Systolic blood 134 mm[Hg] 134 mm[Hg] [facility] (St pressure [facility] [place] , ) Body weight 142 lb 142 lb [facility] ([facility] , ) Body height 59 in 59 in [facility] ([facility] , ) Heart rate 82 /min 82 /min [facility] (Ammir Jolie Physician) Inhaled oxygen 95 % 95 % MED[facility] (Am corey concentration Jolie Physician) Diastolic blood 74 mm[Hg] 74 mm[Hg] [facility] (A mmir pressure Jolie Physician) Systolic blood 128 mm[Hg] 128 mm[Hg] [facility] (Am corey pressure Jolie Physician) Body weight 136 lb 136 lb [facility] (Ammir Jolie Physician) Heart rate 82 /min 82 /min [facility] (Ammir Jolie Physician) Inhaled oxygen 95 % 95 % [facility] (Am corey concentration Jolie Physician) Diastolic blood 74 mm[Hg] 74 mm[Hg] [facility] (A mmir pressure Jolie Physician) Systolic blood 128 mm[Hg] 128 mm[Hg] [facility] (Am corey pressure Jolie Physician) Body weight 136 lb 136 lb [facility] (Ammir Jolie Physician) Heart rate 82 /min 82 /min [facility] (Ammir Jolie Physician) Inhaled oxygen 95 % 95 % [facility] (Am corey concentration Jolie Physician) Diastolic blood 74 mm[Hg] 74 mm[Hg] [facility] (A mmir pressure Jolie Physician) Systolic blood 128 mm[Hg] 128 mm[Hg] [facility] (Am corey pressure Jolie Physician) Body weight 136 lb 136 lb [facility] (Ammir Jolie Physician) Heart rate 79 /min 79 /min [facility] (Ammir Jolie Physician) Inhaled oxygen 97 % 97 % [facility] (Am corey concentration Jolie Physician) Diastolic blood 92 mm[Hg] 92 mm[Hg] [facility] (A mmir pressure Jolie Physician) Systolic blood 148 mm[Hg] 148 mm[Hg] [facility] (Am corey pressure Jolie Physician) Body weight 133 lb 133 lb [facility] (Ammir Jolie Physician) Body height 59 in 59 in [facility] (Ammir Jolie Physician) Heart rate 79 /min 79 /min [facility] (Ammir Jolie Physician) Inhaled oxygen 97 % 97 % [facility] (Am corey concentration Jolie Physician) Diastolic blood 92 mm[Hg] 92 mm[Hg] [facility] (A mmir pressure Jolie Physician) Systolic blood 148 mm[Hg] 148 mm[Hg] [facility] (Am corey pressure Jolie Physician) Body weight 133 lb 133 lb [facility] (Ammir Jolie Physician) Body height 59 in 59 in [facility] (Ammir Jolie Physician) Heart rate 95 /min 95 /min [facility] (Ammir Jolie Physician) Body temperature 98.6 F 98.6 F [facility] ( Ammir Jolie Physician) Inhaled oxygen 97 % 97 % [facility] (Am corey concentration Jolie Physician) Diastolic blood 72 mm[Hg] 72 mm[Hg] [facility] (A mmir pressure Jolie Physician) Systolic blood 130 mm[Hg] 130 mm[Hg] [facility] (Am corey pressure Jolie Physician) Body weight 130 lb 130 lb [facility] (Ammir Jolie Physician) Heart rate 95 /min 95 /min [facility] (Ammir Jolie Physician) Body temperature 98.6 F 98.6 F [facility] ( Ammir Jolie Physician) Inhaled oxygen 97 % 97 % [facility] (Am corey concentration Jolie Physician) Diastolic blood 72 mm[Hg] 72 mm[Hg] [facility] (A mmir pressure Jolie Physician) Systolic blood 130 mm[Hg] 130 mm[Hg] [facility] (Am corey pressure Jolie Physician) Body weight 130 lb 130 lb [facility] (Ammir Jolie Physician) Heart rate 87 /min 87 /min [facility] (Ammir Jolie Physician) Inhaled oxygen 98 % 98 % [facility] (Am corey concentration Jolie Physician) Body mass index 26.7 kg/m2 26.7 kg/m2 [facility] (A mmir (BMI) [Ratio] Jolie Physician) Diastolic blood 68 mm[Hg] 68 mm[Hg] [facility] (A mmir pressure Jolie Physician) Systolic blood 126 mm[Hg] 126 mm[Hg] [facility] (Am corey pressure Jolie Physician) Body weight 132 lb 132 lb [facility] (Ammir Jolie Physician) Body height 59 in 59 in [facility] (Ammir Jolie Physician) Heart rate 87 /min 87 /min [facility] (Ammir Jolie Physician) Inhaled oxygen 98 % 98 % [facility] (Am corey concentration Jolie Physician) Body mass index 26.7 kg/m2 26.7 kg/m2 [facility] (A mmir (BMI) [Ratio] Jolie Physician) Diastolic blood 68 mm[Hg] 68 mm[Hg] [facility] (A mmir pressure Jolie Physician) Systolic blood 126 mm[Hg] 126 mm[Hg] MED[facility] (Am corey pressure Jolie Physician) Body weight 132 lb 132 lb [facility] (Ammir Jolie Physician) Body height 59 in 59 in [facility] (Ammir Jolie Physician) Heart rate 85 /min 85 /min [facility] (Ammir Jolie Physician) Inhaled oxygen 98 % 98 % [facility] (Am corey concentration Jolie Physician) Body mass index 26.7 kg/m2 26.7 kg/m2 [facility] (A mmir (BMI) [Ratio] Jolie Physician) Diastolic blood 70 mm[Hg] 70 mm[Hg] [facility] (A mmir pressure Jolie Physician) Systolic blood 130 mm[Hg] 130 mm[Hg] [facility] (Am corey pressure Jolie Physician) Body weight 132 lb 132 lb [facility] (Ammir Jolie Physician) Body height 59 in 59 in [facility] (Ammir Jolie Physician) Heart rate 85 /min 85 /min [facility] (Ammir Jolie Physician) Inhaled oxygen 98 % 98 % [facility] (Am corey concentration Jolie Physician) Body mass index 26.7 kg/m2 26.7 kg/m2 [facility] (A mmir (BMI) [Ratio] Jolie Physician) Diastolic blood 70 mm[Hg] 70 mm[Hg] [facility] (A mmir pressure Jolie Physician) Systolic blood 130 mm[Hg] 130 mm[Hg] MED[facility] (Am corey pressure Jolie Physician) Body weight 132 lb 132 lb [facility] (Ammir Jolie Physician) Body height 59 in 59 in [facility] (Ammir Jolie Physician) Heart rate 78 /min 78 /min [facility] (Ammir Jolie Physician) Body temperature 98.5 F 98.5 F [facility] ( Ammir Jolie Physician) Inhaled oxygen 98 % 98 % [facility] (Am corey concentration Jolie Physician) Diastolic blood 58 mm[Hg] 58 mm[Hg] [facility] (A mmir pressure Jolie Physician) Systolic blood 108 mm[Hg] 108 mm[Hg] [facility] (Am corey pressure Jolie Physician) Body weight 122 lb 122 lb [facility] (Ammir Jolie Physician) Heart rate 78 /min 78 /min [facility] (Ammir Jolie Physician) Body temperature 98.5 F 98.5 F [facility] ( Ammir Jolie Physician) Inhaled oxygen 98 % 98 % [facility] (Am corey concentration Jolie Physician) Diastolic blood 58 mm[Hg] 58 mm[Hg] [facility] (A mmir pressure Jolie Physician) Systolic blood 108 mm[Hg] 108 mm[Hg] [facility] (Am corey pressure Jolie Physician) Body weight 122 lb 122 lb [facility] (Ammir Jolie Physician) Heart rate 80 /min 80 /min [facility] (Ammir Jolie Physician) Inhaled oxygen 98 % 98 % [facility] (Am corey concentration Jolie Physician) Diastolic blood 86 mm[Hg] 86 mm[Hg] [facility] (A mmir pressure Jolie Physician) Systolic blood 160 mm[Hg] 160 mm[Hg] [facility] (Am corey pressure Jolie Physician) Heart rate 80 /min 80 /min [facility] (Ammir Jolie Physician) Inhaled oxygen 98 % 98 % [facility] (Am corey concentration Jolie Physician) Diastolic blood 86 mm[Hg] 86 mm[Hg] [facility] (A mmir pressure Jolie Physician) Systolic blood 160 mm[Hg] 160 mm[Hg] [facility] (Am corey pressure Jolie Physician) Heart rate 71 /min 71 /min [facility] (Ammir Jolie Physician) Body temperature 97.8 F 97.8 F [facility] ( Ammir Jolie Physician) Inhaled oxygen 97 % 97 % [facility] (Am corey concentration Jolie Physician) Body mass index 20.8 kg/m2 20.8 kg/m2 [facility] (A mmir (BMI) [Ratio] Jolie Physician) Diastolic blood 76 mm[Hg] 76 mm[Hg] [facility] (A mmir pressure Jolie Physician) Systolic blood 134 mm[Hg] 134 mm[Hg] [facility] (Am corey pressure Jolie Physician) Body weight 103 lb 103 lb [facility] (Ammir Jolie Physician) Body height 59 in 59 in [facility] (Ammir Jolie Physician) Heart rate 71 /min 71 /min [facility] (Ammir Jolie Physician) Body temperature 97.8 F 97.8 F [facility] ( Ammir Jolie Physician) Inhaled oxygen 97 % 97 % [facility] (Am corey concentration Jolie Physician) Body mass index 20.8 kg/m2 20.8 kg/m2 [facility] (A mmir (BMI) [Ratio] Jolie Physician) Diastolic blood 76 mm[Hg] 76 mm[Hg] [facility] (A mmir pressure Jolie Physician) Systolic blood 134 mm[Hg] 134 mm[Hg] [facility] (Am corey pressure Jolie Physician) Body weight 103 lb 103 lb [facility] (Ammir Jolie Physician) Body height 59 in 59 in [facility] (Ammir Jolie Physician) Systolic blood 116 mm[Hg] 116 mm[Hg] [facility] (Am corey pressure Jolie Physician) Body weight 103 lb 103 lb [facility] (Ammir Jolie Physician) Body height 59 in 59 in [facility] (Ammir Jolie Physician) Heart rate 74 /min 74 /min [facility] (Ammir Jolie Physician) Body temperature 97.8 F 97.8 F [facility] ( Ammir Ojlie Physician) Inhaled oxygen 98 % 98 % [facility] (Am corey concentration Jolie Physician) Body mass index 20.8 kg/m2 20.8 kg/m2 [facility] (A mmir (BMI) [Ratio] Jolie Physician) Diastolic blood 56 mm[Hg] 56 mm[Hg] [facility] (A mmir pressure Jolie Physician) Heart rate 74 /min 74 /min [facility] (Ammir Jolie Physician) Body temperature 97.8 F 97.8 F [facility] ( Ammir Jolie Physician) Inhaled oxygen 98 % 98 % [facility] (Am corey concentration Jolie Physician) Body mass index 20.8 kg/m2 20.8 kg/m2 [facility] (A mmir (BMI) [Ratio] Jolie Physician) Diastolic blood 56 mm[Hg] 56 mm[Hg] [facility] (A mmir pressure Jolie Physician) Systolic blood 116 mm[Hg] 116 mm[Hg] [facility] (Am corey pressure Jolie Physician) Body weight 103 lb 103 lb [facility] (Ammir Jolie Physician) Body height 59 in 59 in [facility] (Ammir Jolie Physician) Heart rate 74 /min 74 /min [facility] (Ammir Jolie Physician) Body temperature 97.8 F 97.8 F [facility] ( Ammir Jolie Physician) Inhaled oxygen 98 % 98 % [facility] (Am corey concentration Jolie Physician) Body mass index 20.8 kg/m2 20.8 kg/m2 [facility] (A mmir (BMI) [Ratio] Jolie Physician) Diastolic blood 56 mm[Hg] 56 mm[Hg] [facility] (A mmir pressure Jolie Physician) Systolic blood 116 mm[Hg] 116 mm[Hg] [facility] (Am corey pressure Jolie Physician) Body weight 103 lb 103 lb [facility] (Ammir Jolie Physician) Body height 59 in 59 in [facility] (Ammir Jolie Physician) Heart rate 74 /min 74 /min [facility] (Ammir Jolie Physician) Body temperature 97.8 F 97.8 F [facility] ( Ammir Jolie Physician) Inhaled oxygen 98 % 98 % [facility] (Am corey concentration Jolie Physician) Body mass index 20.8 kg/m2 20.8 kg/m2 [facility] (A mmir (BMI) [Ratio] Jolie Physician) Diastolic blood 56 mm[Hg] 56 mm[Hg] [facility] (A mmir pressure Jolie Physician) Systolic blood 116 mm[Hg] 116 mm[Hg] [facility] (Am corey pressure Jolie Physician) Body weight 103 lb 103 lb [facility] (Ammir Jolie Physician) Body height [address] [facility] Jolie [facility] Heart rate 64 /min 64 /min [facility] (Ammir Jolie Physician) Body temperature 97.8 F 97.8 F [facility] ( Ammir Jolie Physician) Body mass index 20.8 kg/m2 20.8 kg/m2 [facility] (A mmir (BMI) [Ratio] Jolie Physician) Diastolic blood 80 mm[Hg] 80 mm[Hg] [facility] (A mmir pressure Jolie Physician) Systolic blood 120 mm[Hg] 120 mm[Hg] [facility] (Am corey pressure Jolie Physician) Body weight 103 lb 103 lb [facility] (Ammir Jolie Physician) Body height 59 in 59 in [facility] (Ammir Jolie Physician) Heart rate 64 /min 64 /min [facility] (Ammir Jolie Physician) Body temperature 97.8 F 97.8 F [facility] ( Ammir Jolie Physician) Body mass index 20.8 kg/m2 20.8 kg/m2 [facility] (A mmir (BMI) [Ratio] Jolie Physician) Diastolic blood 80 mm[Hg] 80 mm[Hg] [facility] (A mmir pressure Jolie Physician) Systolic blood 120 mm[Hg] 120 mm[Hg] MED[facility] (Am corey pressure Jolie Physician) Body weight 103 lb 103 lb [facility] (Ammir Jolie Physician) Body height 59 in 59 in [facility] (Ammir Jolie Physician) Heart rate 64 /min 64 /min [facility] (Ammir Jolie Physician) Body temperature 97.8 F 97.8 F [facility] ( Ammir Jolie Physician) Body mass index 20.8 kg/m2 20.8 kg/m2 MED[facility] (A mmir (BMI) [Ratio] Jolie Physician) Diastolic blood 80 mm[Hg] 80 mm[Hg] MED[facility] (A mmir pressure Ojlie Physician) Systolic blood 120 mm[Hg] 120 mm[Hg] MEDGEN (Am corey pressure Jolie Physician) Body weight 103 lb 103 lb [facility] (Ammir Jolie Physician) Body height 59 in 59 in [facility] (Ammir Jolie Physician) Heart rate 64 /min 64 /min [facility] (Ammir Jolie Physician) Body temperature 97.8 F 97.8 F [facility] ( Ammir Jolie Physician) Body mass index 20.8 kg/m2 20.8 kg/m2 [facility] (A mmir (BMI) [Ratio] Jolie Physician) Diastolic blood 80 mm[Hg] 80 mm[Hg] [facility] (A mmir pressure Jolie Physician) Systolic blood 120 mm[Hg] 120 mm[Hg] MED[facility] (Am corey pressure Jolie Physician) Body weight 103 lb 103 lb [facility] (Ammir Jolie Physician) Body height 59 in 59 in [facility] (Ammir Jolie Physician) Heart rate 62 /min 62 /min [facility] (Ammir Jolie Physician) Body temperature 97.8 F 97.8 F [facility] ( Ammir Jolie Physician) Body mass index 20.8 kg/m2 20.8 kg/m2 MED[facility] (A mmir (BMI) [Ratio] Jolie Physician) Diastolic blood 70 mm[Hg] 70 mm[Hg] MED[facility] (A mmir pressure Jolie Physician) Systolic blood 110 mm[Hg] 110 mm[Hg] MED[facility] (Am corey pressure Jolie Physician) Body weight 103 lb 103 lb [facility] (Ammir Jolie Physician) Body height 59 in 59 in [facility] (Ammir Jolie Physician) Heart rate 62 /min 62 /min [facility] (Ammir Jolie Physician) Body temperature 97.8 F 97.8 F [facility] ( Ammir Jolie Physician) Body mass index 20.8 kg/m2 20.8 kg/m2 [facility] (A mmir (BMI) [Ratio] Jolie Physician) Diastolic blood 70 mm[Hg] 70 mm[Hg] SUSANNE (A mmir pressure Jolie Physician) Systolic blood 110 mm[Hg] 110 mm[Hg] SUSANNE (Am corey pressure Jolie Physician) Body weight 103 lb 103 lb SUSANNE (Jeremiahmir Jolie Physician) Body height 59 in 59 in SUSANNE (Reji Dave Physician)
[2020-02-24 10:15] LABS: BASO % 0.8 % (0-2.0); EOS % 7.3 % (0-4.5); HEMATOCRIT 26.1 % (32.4-45.2); HEMOGLOBIN 8.6 GM/dL (10.7-15.3); LYMPH % 26.5 % (8-40); MCH 29.5 pg (25.7-33.7); MCHC 32.9 g/dl (32.0-36.0); MEAN CELL VOLUME 89.7 fl (80-96); MEAN PLT VOLUME 8.5 fl (7.5-11.1); MONO % 11.2 % (3.8-10.2); NEUT % 54.2 % (42.8-82.8); PLATELET COUNT 340 K/MM3 (134-434); RBC 2.91 M/mm3 (3.60-5.2); RDW 14.3 % (11.6-15.6); WHITE BLOOD COUNT 9.6 K/mm3 (4.0-10.0)
[2020-02-24 10:24] LABS: INR 0.87 (0.83-1.09); PROTHROMBIN TIME (PATIENT) 10.3 SEC (9.7-13.0)
[2020-02-24 10:50] LABS: ALBUMIN 3.1 g/dl (3.4-5.0); BILIRUBIN,TOTAL 0.2 mg/dL (0.2-1); BLOOD UREA NITROGEN 23.8 mg/dL (7-18); CALCIUM 9.1 mg/dL (8.5-10.1); CREATININE 1.1 mg/dL (0.55-1.3); POTASSIUM 5.2 mmol/L (3.5-5.1); TOT PROT 8.5 g/dl (6.4-8.2)
[2020-02-24] MEDS ORDERED: IRON SUCROSE INJECTION 300 MG in SODIUM CHLORIDE 235 ML IVPB ONE (12:14)
--- NOTE | 2020-02-24 12:17 | PDOC ---
Documentation entered by Kristan Best SCRIBE, acting as scribe for Dmitry Mccoy MD. Dmitry Mccoy MD: This documentation has been prepared by the Nasir orozco Lincy, SCRIBE, under my direction and personally reviewed by me in its entirety. I confirm that the documentation accurately reflects all work, treatment, procedures, and medical decision making performed by me. History of Present Illness - General Chief Complaint: Abnormal Lab Results (Outside) Stated Complaint: SENT BY PCP (ABNORMAL LABS) Time Seen by Provider: 02/24/20 09:14 History Source: Patient Exam Limitations: No Limitations - History of Present Illness Initial Comments: 02/24/20 10:47 The patient is a 79-year-old female with a past medical history significant for HTN, DM, and hypothyroidism was sent to the emergency department by Dr. Guthrie office for abnormal lab value. The patient reports she was seen at Dr. Warren's office on 02/16, and was scheduled for an endoscopy tomorrow (02/24). The patient reports having blood work done, and she received a call from Dr. Guthrie office this morning, stating the hgb is 7.5 and go to the ER for iron transfusion. The patient reports daily ASA use, last dose yesterday, denies taking any ASA today. The patient reports she tested negative for COVID on Saturday (02/20). Denies chest pain, abdominal pain (currently), nausea, vomiting. Denies hematochezia or melena. Allergies: NKA PCP: Dr. Dave. GI: Dr. Warren. Past History - Medical History Allergies/Adverse Reactions: Allergies Allergy/AdvReac Type Severity Reaction Status Date / Time No Known Allergies Allergy Verified 10/28/17 13:35 Home Medications: Ambulatory Orders Cholecalciferol (Vitamin D3) [Vitamin D3] 1,000 unit PO DAILY 10/28/17 Levothyroxine [Synthroid -] 50 mcg PO DAILY 10/28/17 Losartan Potassium [Cozaar -] 50 mg PO DAILY 10/29/17 Gabapentin [Neurontin -] 100 mg PO Q8H #90 capsule 10/31/17 Sertraline HCl [Zoloft -] 50 mg PO DAILY #30 tablet 10/31/17 Multivitamin 1 each PO DAILY 02/22/20 Pantoprazole Sodium [Protonix -] 20 mg PO DAILY 02/22/20 Anemia: No Asthma: No Cancer: No Cardiac Disorders: No CVA: No COPD: No CHF: No Dementia: No Diabetes: Yes (no longer medicated) GI Disorders: No Disorders: No HTN: Yes Hypercholesterolemia: No Liver Disease: No Seizures: No Thyroid Disease: Yes - Surgical History Abdominal Surgery: No Appendectomy: No Cardiac Surgery: No Cholecystectomy: No Lung Surgery: No Neurologic Surgery: No Orthopedic Surgery: No - Reproductive History Is Patient Now?: No - Immunization History Immunization Up to Date: No - Psycho-Social/Smoking History Smoking History: Never smoked Have you smoked in the past 12 months: No If you are a former smoker, when did you quit?: more than 20 years ago Information on smoking cessation initiated: No - Substance Abuse Hx (Audit-C & DAST Scrn) How often the patient has a drink containing alcohol: Never Score: In Men: 4 or > Positive; In Women: 3 or > Positive: 0 Screen Result (Pos requires Nsg. Audit-10AR): Negative In the last yr the pt used illegal drug/Rx for NonMed reason: No Score: Yes response is considered Positive: 0 Screen Result (Positive result requires Nsg. DAST-10): Negative Review of Systems - Review of Systems Able to Perform ROS?: Yes Comments:: 02/24/20 10:49 CONSTITUTIONAL: No fever, no chills, no fatigue EYES: No visual changes ENT: No ear pain, no sore throat CARDIOVASCULAR: No chest pain, no palpitations RESPIRATORY: No cough, no SOB GI: No abdominal pain, no nausea, no vomiting, no constipation, no diarrhea GENITOURINARY: No dysuria, no frequency, no hematuria MUSKULOSKELETAL: No back pain, no joint pain, no myalgias SKIN: No rash NEURO: No headache *Physical Exam - Vital Signs Last Vital Signs Temp Pulse Resp BP Pulse Ox 98.1 F 78 16 139/49 L 100 02/24/20 09:08 02/24/20 09:08 02/24/20 09:08 02/24/20 09:08 02/24/20 09:08 - Physical Exam 02/24/20 11:15 CONSTITUTIONAL: +pale appearing. Well-appearing; well-nourished; in no apparent distress HEAD: Normocephalic; atraumatic EYES: No scleral icterus. PERRL; EOM intact ENMT: External appears normal; normal oropharynx NECK: Supple; non-tender; no cervical lymphadenopathy CARD: +2/6 systolic ejection murmur. Normal S1, S2; no rubs, or gallops RESP: Normal chest excursion with respiration; breath sounds clear and equal bilaterally; no wheezes, rhonchi, or rales ABD: Soft, non-distended; non-tender; no palpable organomegaly, no palpable hernias EXT: Normal ROM in all four extremities; non-tender to palpation; distal pulses intact SKIN: Warm, dry, no rash NEURO: No focal neurological deficiencies. Heart Score/ECG Review - ECG Impressions Comment:: 02/24/20 11:58 EKG performed at 11:20. Demonstrates sinus rhythm with marked sinus arrhythmia, rate of 75 bpm, NH interval 180 ms, QRS duration 70 ms. ED Treatment Course - LABORATORY CBC & Chemistry Diagram: 02/24/20 09:40 02/24/20 09:40 Medical Decision Making - Medical Decision Making 02/24/20 12:15 Patient 79-year-old female with history of hypertension, diabetes referred to the ER for iron deficiency anemia with decrease in hemoglobin from 10.5-7.6 over a period of 3 months. In the ER, patient is awake and alert, nontoxic-appe aring, well-nourished. Vital signs are noted. I discussed the case with Dr. Hardeep Warren and Dr. Duke Dave. Given the dramatic drop, patient scheduled for EGD in 24 hours. COVID testing obtained was noted to be negative. Will administer IV iron. Will admit. Discharge - Discharge Information Problems reviewed: Yes Clinical Impression/Diagnosis: Anemia Qualifiers: Anemia type: iron deficiency Iron deficiency anemia type: unspecified iron d eficiency Qualified Code(s): D50.9 - Iron deficiency anemia, unspecified Condition: Fair - Admission Yes - Follow up/Referral Referrals: Reji Dave MD [Primary Care Provider] - - Patient Discharge Instructions - Post Discharge Activity
--- NOTE | 2020-02-24 12:51 | EKG ---
Test Reason : Blood Pressure : / mmHG Vent. Rate : 075 BPM Atrial Rate : 075 BPM P-R Int : 180 ms QRS Dur : 070 ms QT Int : 418 ms P-R-T Axes : 068 030 045 degrees QTc Int : 466 ms POOR DATA QUALITY, INTERPRETATION MAY BE ADVERSELY AFFECTED SINUS RHYTHM WITH MARKED SINUS ARRHYTHMIA OTHERWISE NORMAL ECG WHEN COMPARED WITH ECG OF 29-OCT-2017 10:50, NO SIGNIFICANT CHANGE WAS FOUND Confirmed by MD GERALD, ROE ([id number]) on 02/24/2020 12:51:07 PM Referred By: Confirmed By:ROE DUARTE MD
[2020-02-24] MEDS: SODIUM CHLORIDE 1,000 ML IV SCH (13:17)
[2020-02-24 21:02] LABS: HEMOGLOBIN 7.6 GM/dL (10.7-15.3); MCH 29.6 pg (25.7-33.7); MEAN CELL VOLUME 89.7 fl (80-96); MEAN PLT VOLUME 8.2 fl (7.5-11.1); PLATELET COUNT 310 K/MM3 (134-434); RBC 2.57 M/mm3 (3.60-5.2); RDW 14.3 % (11.6-15.6); WHITE BLOOD COUNT 9.1 K/mm3 (4.0-10.0)
[2020-02-24 21:38] LABS: ALBUMIN 2.6 g/dl (3.4-5.0); ALK PHOS 88 U/L (45-117); ANION GAP 6 MMOL/L (8-16); BILIRUBIN,TOTAL < 0.1 mg/dL (0.2-1); BLOOD UREA NITROGEN 21.7 mg/dL (7-18); CALCIUM 8.7 mg/dL (8.5-10.1); CHLORIDE 105 mmol/L (98-107); CO2 27 mmol/L (21-32); GLUCOSE,RANDOM 183 mg/dL (74-106); SGOT/AST 21 U/L (15-37); SGPT/ALT 18 U/L (13-61); SODIUM 137 mmol/L (136-145); TOT PROT 7.2 g/dl (6.4-8.2)
[2020-02-25] MEDS ORDERED: ACETAMINOPHEN 1000 MG/100 ML VIAL (NON FORMULARY) IVPB ONE (06:39)
[2020-02-25] MEDS ORDERED: METOPROLOL TARTRATE 5 MG/5 ML VIAL IVPUSH ONE (06:39)
[2020-02-25 10:57] LABS: BASO % 0.6 % (0-2.0); EOS % 2.6 % (0-4.5); HEMATOCRIT 25.9 % (32.4-45.2); HEMOGLOBIN 8.3 GM/dL (10.7-15.3); LYMPH % 17.4 % (8-40); MCH 28.3 pg (25.7-33.7); MCHC 31.9 g/dl (32.0-36.0); MEAN CELL VOLUME 88.8 fl (80-96); MEAN PLT VOLUME 8.3 fl (7.5-11.1); MONO % 9.8 % (3.8-10.2); NEUT % 69.6 % (42.8-82.8); PLATELET COUNT 372 K/MM3 (134-434); RBC 2.92 M/mm3 (3.60-5.2); RDW 14.3 % (11.6-15.6); WHITE BLOOD COUNT 13.6 K/mm3 (4.0-10.0)
[2020-02-25 11:21] LABS: BLOOD UREA NITROGEN 15.6 mg/dL (7-18); CALCIUM 9.1 mg/dL (8.5-10.1); POTASSIUM 4.5 mmol/L (3.5-5.1)
--- NOTE | 2020-02-25 12:29 | CON.GI ---
Consult Consult Specialty:: GI Referred by:: Dr. Reji Dave Reason for Consultation:: Anemia - History of Present Illness Chief Complaint: Anemia History of Present Illness: Please see office note from 02/17/20. 79F seen in office 02/17/20 for anemia / upper abdominal pain. Completed triple therapy for h. pylori. Repeat blood work 02/16 revealed hgb 7.6 with low iron indices. Noted guaiac negative in office. No focal complaints currently - History Source History Provided By: Patient, Medical Record - Past Medical History Cardio/Vascular: Yes: HTN Gastrointestinal: Yes: Other (H. 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 Place of : Other ([place]) History of Recent Travel: No Home Medications - Allergies Allergies/Adverse Reactions: Allergies Allergy/AdvReac Type Severity Reaction Status Date / Time No Known Allergies Allergy Verified 02/24/20 13:58 - Home Medications Home Medications: Ambulatory Orders Cholecalciferol (Vitamin D3) [Vitamin D3] 1,000 unit PO DAILY 10/28/17 Levothyroxine [Synthroid -] 50 mcg PO DAILY 10/28/17 Losartan Potassium [Cozaar -] 50 mg PO DAILY 10/29/17 Gabapentin [Neurontin -] 100 mg PO Q8H #90 capsule 10/31/17 Sertraline HCl [Zoloft -] 50 mg PO DAILY #30 tablet 10/31/17 Multivitamin 1 each PO DAILY 02/22/20 Pantoprazole Sodium [Protonix -] 20 mg PO DAILY 02/22/20 Aspirin 81 mg PO DAILY 02/24/20 Family Medical History Other Family History: No family history of colorectal cancer or other GI malignancy Review of Systems - Review of Systems Constitutional: denies: Chills, Unintentional Wgt. Loss Cardiovascular: denies: Chest Pain Respiratory: denies: Cough Gastrointestinal: reports: Abdominal Pain, Nausea. denies: Rectal Bleeding, Vomiting Physical Exam-GI Vital Signs: Vital Signs Temperature 99.1 F 02/25/20 06:28 Pulse Rate 72 02/25/20 12:01 Respiratory Rate 18 02/25/20 12:01 Blood Pressure 174/64 H 02/25/20 12:01 O2 Sat by Pulse Oximetry (%) 98 02/25/20 12:01 Constitutional: Yes: Calm Eyes: No: Sclera Icterus Cardiovascular: Yes: Regular Rate and Rhythm. No: Murmur Respiratory: Yes: CTA Bilaterally Gastrointestinal Inspection: No: Distention ...Auscultate: Yes: Normoactive Bowel Sounds Edema: No (No LE edema) Neurological: Yes: Alert Labs: CBC, BMP 02/25/20 10:46 02/25/20 10:46 INR, PTT INR 0.87 (0.83-1.09) 02/24/20 09:40 Hepatic Panel Total Bilirubin < 0.1 mg/dL (0.2-1) L 02/24/20 20:30 AST 21 U/L (15-37) 02/24/20 20:30 ALT 18 U/L (13-61) 02/24/20 20:30 Alkaline Phosphatase 88 U/L (45-117) 02/24/20 20:30 Albumin 2.6 g/dl (3.4-5.0) L 02/24/20 20:30 Problem List - Problems (1) Anemia Assessment/Plan: As previously discussed plan for EGD to evaluate anemia and upper abdominal discomfort despite H. pylori therapy. Following endoscopy possible colonoscopy. This was discussed in length with the patient and her son during previous office visit. Code(s): D64.9 - ANEMIA, UNSPECIFIED Qualifiers: Anemia type: iron deficiency Iron deficiency anemia type: unspecified iron deficiency Qualified Code(s): D50.9 - Iron deficiency anemia, unspecified
--- NOTE | 2020-02-25 13:02 | PN ---
Progress Note (short form) - Note Progress Note: EGD complete. report will be placed in the procedural section of the physical chart and will be scanned into [employer] Problem List - Problems (1) Anemia Code(s): D64.9 - ANEMIA, UNSPECIFIED Qualifiers: Anemia type: iron deficiency Iron deficiency anemia type: unspecified iron deficiency Qualified Code(s): D50.9 - Iron deficiency anemia, unspecified
[2020-02-25] MEDS: SODIUM CHLORIDE 1,000 ML IV SCH (13:15)
[2020-02-25] MEDS: PANTOPRAZOLE 40 MG TABLET PO SCH (13:15)
[2020-02-25 15:20] VITALS: BMI 24.1
[2020-02-25] MEDS ORDERED: LEVOTHYROXINE NA 50 MCG TABLET (FP) PO ONE (16:03)
--- NOTE | 2020-02-25 16:03 | HP ---
Admitting History and Physical - Past Medical History Cardiovascular: Yes: HTN Gastrointestinal: Yes: Other (H. 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 History of Recent Travel: No Home Medications - Allergies Allergies/Adverse Reactions: Allergies Allergy/AdvReac Type Severity Reaction Status Date / Time No Known Allergies Allergy Verified 02/24/20 13:58 - Home Medications Home Medications: Ambulatory Orders Cholecalciferol (Vitamin D3) [Vitamin D3] 1,000 unit PO DAILY 10/28/17 Levothyroxine [Synthroid -] 50 mcg PO DAILY 10/28/17 Sertraline HCl [Zoloft -] 50 mg PO DAILY #30 tablet 10/31/17 Multivitamin 1 each PO DAILY 02/22/20 Pantoprazole Sodium [Protonix -] 20 mg PO DAILY 02/22/20 Aspirin 81 mg PO DAILY 02/24/20 Lisinopril [Prinivil] 10 mg PO DAILY 02/25/20 Quetiapine Fumarate [Seroquel -] 50 mg PO HS 02/25/20 traZODone HCL [Trazodone HCl] 50 mg PO HS 02/25/20 Family Medical History Other Family History: No family history of colorectal cancer or other GI malignancy Physical Examination Vital Signs: Vital Signs Temperature 98 F 02/25/20 14:41 Pulse Rate 76 02/25/20 14:41 Respiratory Rate 18 02/25/20 14:41 Blood Pressure 152/83 02/25/20 14:41 O2 Sat by Pulse Oximetry (%) 99 02/25/20 14:41 Cardiovascular: Yes: Regular Rate and Rhythm Respiratory: Yes: Regular, CTA Bilaterally Gastrointestinal: Yes: Normal Bowel Sounds, Soft. No: Tenderness Edema: No Labs: CBC, BMP 02/25/20 10:46 02/25/20 10:46 Problem List - Problems (1) Gastric ulcer Assessment/Plan: ppi egd in 6 weeks Code(s): K25.9 - GASTRIC ULCER, UNSP ACUTE OR CHRONIC, W/O HEMOR OR PERF (2) Adult hypothyroidism Assessment/Plan: resume meds Code(s): E03.9 - HYPOTHYROIDISM, UNSPECIFIED (3) Anemia Assessment/Plan: follow counts Code(s): D64.9 - ANEMIA, UNSPECIFIED Qualifiers: Anemia type: iron deficiency Iron deficiency anemia type: unspecified iron deficiency Qualified Code(s): D50.9 - Iron deficiency anemia, unspecified (4) Anxiety Code(s): F41.9 - ANXIETY DISORDER, UNSPECIFIED (5) Diabetes Code(s): E11.9 - TYPE 2 DIABETES MELLITUS WITHOUT COMPLICATIONS (6) HTN (hypertension) Code(s): I10 - ESSENTIAL (PRIMARY) HYPERTENSION
[2020-02-25] MEDS ORDERED: BISACODYL 5 MG TABLET.DR (FP) PO ONE (17:00)
[2020-02-25] MEDS ORDERED: POLYETHYLENE GLYCOL 3350 255 GM BTL PO ONE (18:00)
[2020-02-25] MEDS: INSULIN (NOVOLOG) ASPART 100 UNITS/ML 10ML VIAL SQ SCH ×2 (19:00→22:14)
[2020-02-25] MEDS ORDERED: ACETAMINOPHEN 325 MG TABLET (FP) PO ONE (20:32)
[2020-02-25] MEDS: QUEtiapine FUMARATE 50 MG TABLET PO SCH (22:14)
[2020-02-25] MEDS ORDERED: ONDANSETRON 4 MG/2 ML VIAL IVPUSH ONE (22:27)
[2020-02-26] MEDS: INSULIN (NOVOLOG) ASPART 100 UNITS/ML 10ML VIAL SQ SCH (06:30)
[2020-02-26] MEDS: LEVOTHYROXINE NA 50 MCG TABLET (FP) PO SCH (06:30)
--- NOTE | 2020-02-26 07:50 | PN ---
Progress Note, Physician History of Present Illness: no complaints - Current Medication List Current Medications: Active Medications Sodium Chloride (Normal Saline -) 1,000 mls @ 85 mls/hr IV ASDIR [facility] Last Admin: 02/25/20 13:15 Dose: Not Given Documented by: Insulin Aspart (Novolog Vial) 0 units SQ ACHS [facility]; Protocol Last Admin: 02/26/20 06:30 Dose: Not Given Documented by: Levothyroxine Sodium (Synthroid -) 50 mcg PO DAILY@0700 [facility] Last Admin: 02/26/20 06:30 Dose: 50 mcg Documented by: Lisinopril (Prinivil) 10 mg PO DAILY [facility] Pantoprazole Sodium (Protonix -) 40 mg PO DAILY [facility] Last Admin: 02/25/20 13:15 Dose: Not Given Documented by: Quetiapine Fumarate (Seroquel -) 50 mg PO HS [facility] Last Admin: 02/25/20 22:14 Dose: 50 mg Documented by: Sertraline HCl (Zoloft -) 50 mg PO DAILY [facility] - Objective Vital Signs: Vital Signs Temperature 98.6 F 02/26/20 05:55 Pulse Rate 86 02/26/20 05:55 Respiratory Rate 18 02/26/20 05:55 Blood Pressure 126/56 L 02/26/20 05:55 O2 Sat by Pulse Oximetry (%) 96 02/26/20 05:55 Cardiovascular: Yes: Regular Rate and Rhythm Respiratory: Yes: Regular, CTA Bilaterally Gastrointestinal: Yes: Normal Bowel Sounds, Soft. No: Tenderness Labs: CBC, BMP 02/25/20 10:46 02/25/20 10:46 INR, PTT INR 0.87 (0.83-1.09) 02/24/20 09:40 Problem List - Problems (1) Gastric ulcer Assessment/Plan: ppi egd in 6 weeks Code(s): K25.9 - GASTRIC ULCER, UNSP ACUTE OR CHRONIC, W/O HEMOR OR PERF (2) Adult hypothyroidism Assessment/Plan: resume meds Code(s): E03.9 - HYPOTHYROIDISM, UNSPECIFIED (3) Anemia Assessment/Plan: follow counts if drop will need prbc colon today Code(s): D64.9 - ANEMIA, UNSPECIFIED Qualifiers: Anemia type: iron deficiency Iron deficiency anemia type: unspecified iron deficiency Qualified Code(s): D50.9 - Iron deficiency anemia, unspecified (4) Anxiety Assessment/Plan: same meds Code(s): F41.9 - ANXIETY DISORDER, UNSPECIFIED (5) Diabetes Assessment/Plan: bgm Code(s): E11.9 - TYPE 2 DIABETES MELLITUS WITHOUT COMPLICATIONS (6) HTN (hypertension) Assessment/Plan: monitor Vital Signs Period Temp Pulse Resp BP Sys/Edwards Pulse Ox Last 24 Hr 96.9 F-98.6 F 72-104 15-18 108-174/56-90 96-100 Selected Entries 02/25/20 02/26/20 22:00 05:55 Blood Pressure 148/90 126/56 L Code(s): I10 - ESSENTIAL (PRIMARY) HYPERTENSION
[2020-02-26 08:55] LABS: BASO % 0.5 % (0-2.0); EOS % 1.9 % (0-4.5); HEMATOCRIT 23.3 % (32.4-45.2); HEMOGLOBIN 7.7 GM/dL (10.7-15.3); LYMPH % 17.1 % (8-40); MCH 29.7 pg (25.7-33.7); MCHC 33.3 g/dl (32.0-36.0); MEAN CELL VOLUME 89.2 fl (80-96); MEAN PLT VOLUME 8.7 fl (7.5-11.1); MONO % 12.9 % (3.8-10.2); NEUT % 67.6 % (42.8-82.8); PLATELET COUNT 302 K/MM3 (134-434); RBC 2.61 M/mm3 (3.60-5.2); RDW 14.4 % (11.6-15.6); WHITE BLOOD COUNT 10.2 K/mm3 (4.0-10.0)
[2020-02-26] MEDS: LISINOPRIL 10 MG TABLET (FP) PO SCH (09:08)
[2020-02-26] MEDS: PANTOPRAZOLE 40 MG TABLET PO SCH (09:08)
[2020-02-26 09:12] LABS: BLOOD UREA NITROGEN 12.6 mg/dL (7-18); CALCIUM 8.7 mg/dL (8.5-10.1); CREATININE 0.9 mg/dL (0.55-1.3); POTASSIUM 3.6 mmol/L (3.5-5.1)
[2020-02-26] MEDS: INSULIN SLIDING SCALE (NOVOLOG) 1 VIAL SQ SCH ×3 (11:57→22:15)
[2020-02-26] MEDS ORDERED: PT OWN MED DRAWER 7, Y5N ONE ×2 (12:29→16:23)
--- NOTE | 2020-02-26 16:10 | PN.GI ---
GI Progress Note Subjective: GI Procedure NOte: Please see colonoscopy report. A cecal angiodysplasia was found suggesting that Cecilia may have chronic bleeding from small bowel vascular ectasias so a capsule endoscopy was advised. She also had a right colon lipoma and diverticulosis - Objective Vital Signs: Vital Signs Temperature 98.1 F 02/26/20 14:51 Pulse Rate 85 02/26/20 14:51 Respiratory Rate 16 02/26/20 14:51 Blood Pressure 145/62 02/26/20 14:51 O2 Sat by Pulse Oximetry (%) 98 02/26/20 14:51 CBC,CMP WBC 10.2 K/mm3 (4.0-10.0) H 02/26/20 07:36 RBC 2.61 M/mm3 (3.60-5.2) L 02/26/20 07:36 Hgb 7.7 GM/dL (10.7-15.3) L 02/26/20 07:36 Hct 23.3 % (32.4-45.2) L 02/26/20 07:36 MCV 89.2 fl (80-96) 02/26/20 07:36 MCH 29.7 pg (25.7-33.7) 02/26/20 07:36 MCHC 33.3 g/dl (32.0-36.0) 02/26/20 07:36 RDW 14.4 % (11.6-15.6) 02/26/20 07:36 Plt Count 302 K/MM3 (134-434) 02/26/20 07:36 MPV 8.7 fl (7.5-11.1) 02/26/20 07:36 Absolute Neuts (auto) 6.9 K/mm3 (1.5-8.0) 02/26/20 07:36 Neutrophils % 67.6 % (42.8-82.8) 02/26/20 07:36 Lymphocytes % 17.1 % (8-40) 02/26/20 07:36 Monocytes % 12.9 % (3.8-10.2) H 02/26/20 07:36 Eosinophils % 1.9 % (0-4.5) 02/26/20 07:36 Basophils % 0.5 % (0-2.0) 02/26/20 07:36 Nucleated RBC % 0 % (0-0) 02/26/20 07:36 Sodium 139 mmol/L (136-145) 02/26/20 07:36 Potassium 3.6 mmol/L (3.5-5.1) 02/26/20 07:36 Chloride 107 mmol/L (98-107) 02/26/20 07:36 Carbon Dioxide 24 mmol/L (21-32) 02/26/20 07:36 Anion Gap 8 MMOL/L (8-16) 02/26/20 07:36 BUN 12.6 mg/dL (7-18) 02/26/20 07:36 Creatinine 0.9 mg/dL (0.55-1.3) 02/26/20 07:36 Est GFR (CKD-EPI)AfAm 70.98 02/26/20 07:36 Est GFR (CKD-EPI)NonAf 61.24 02/26/20 07:36 POC Glucometer 96 UNITS (80-120) 02/26/20 11:56 Random Glucose 100 mg/dL (74-106) 02/26/20 07:36 Calcium 8.7 mg/dL (8.5-10.1) 02/26/20 07:36 Total Bilirubin < 0.1 mg/dL (0.2-1) L 02/24/20 20:30 AST 21 U/L (15-37) 02/24/20 20:30 ALT 18 U/L (13-61) 02/24/20 20:30 Alkaline Phosphatase 88 U/L (45-117) 02/24/20 20:30 Total Protein 7.2 g/dl (6.4-8.2) 02/24/20 20:30 Albumin 2.6 g/dl (3.4-5.0) L 02/24/20 20:30 Current Medications Generic Name Dose Route Start Last Admin Trade Name Freq PRN Reason Stop Dose Admin Furosemide 20 mg 02/26/20 11:32 Lasix Injection - IVPUSH 02/26/20 11:33 ONCE ONE Sodium Chloride 1,000 mls @ 85 mls/hr 02/24/20 13:00 02/25/20 13:15 Normal Saline - IV Not Given ASDIR JACOB Insulin Aspart 1 vial 02/26/20 08:39 02/26/20 11:57 Novolog Vial Sliding Scale - SQ Not Given ACHS [facility] Protocol Levothyroxine Sodium 50 mcg 02/26/20 07:00 02/26/20 06:30 Synthroid - PO 50 mcg DAILY@0700 JACOB Administration Lisinopril 10 mg 02/26/20 10:00 02/26/20 09:08 Prinivil PO 10 mg DAILY JACOB Administration Pantoprazole Sodium 40 mg 02/25/20 13:15 02/26/20 09:08 Protonix - PO 40 mg DAILY JACOB Administration Quetiapine Fumarate 50 mg 02/25/20 22:00 02/25/20 22:14 Seroquel - PO 50 mg HS JACOB Administration Sertraline HCl 50 mg 02/26/20 10:00 Zoloft - PO DAILY JACOB Constitutional: Calm ...Auscultate: Yes: Normoactive Bowel Sounds ...Palpate: Yes: Soft, Other (nontender) Labs: CBC, BMP 02/26/20 07:36 02/26/20 07:36 INR, PTT INR 0.87 (0.83-1.09) 02/24/20 09:40 Assessment/Plan Impression: - The cecal angiodysplasia suggests bleeding from small bowel vascular ectasias so capsule endosocpy has been advised Plan: -- No GI objection to discharge -- Capsule endoscopy as outpatient: I gave Cecilia Mendez's contact Dr Olivo will be covering this weekend Problem List - Problems (1) Angiodysplasia of cecum Code(s): K55.20 - ANGIODYSPLASIA OF COLON WITHOUT HEMORRHAGE (2) Diverticulosis Code(s): K57.90 - DVRTCLOS OF INTEST, PART UNSP, W/O PERF OR ABSCESS W/O BLEED (3) Lipoma of colon Code(s): D17.5 - BENIGN LIPOMATOUS NEOPLASM OF INTRA-ABDOMINAL ORGANS (4) Anemia Code(s): D64.9 - ANEMIA, UNSPECIFIED Qualifiers: Anemia type: iron deficiency Iron deficiency anemia type: unspecified iron deficiency Qualified Code(s): D50.9 - Iron deficiency anemia, unspecified
[2020-02-26] MEDS: SERTRALINE HCL 50 MG TABLET (FP) PO SCH (16:24)
[2020-02-26] MEDS: QUEtiapine FUMARATE 50 MG TABLET PO SCH (21:35)
[2020-02-27] MEDS ORDERED: FUROSEMIDE 40 MG/4 ML INJECTABLE VIAL ONE (04:30)
[2020-02-27] MEDS ORDERED: FUROSEMIDE 40 MG/4 ML INJECTABLE VIAL IVPUSH ONE (05:00)
[2020-02-27] MEDS: LEVOTHYROXINE NA 50 MCG TABLET (FP) PO SCH (06:07)
[2020-02-27] MEDS: SODIUM CHLORIDE 1,000 ML IV SCH (06:07)
[2020-02-27] MEDS: INSULIN SLIDING SCALE (NOVOLOG) 1 VIAL SQ SCH ×2 (06:12→11:44)
--- NOTE | 2020-02-27 07:38 | PN.GI ---
GI Progress Note Subjective: no new complaints - feeling much better wants to go home - Objective Vital Signs: Vital Signs Temperature 97.8 F 02/27/20 06:00 Pulse Rate 77 02/27/20 06:00 Respiratory Rate 18 02/27/20 06:00 Blood Pressure 127/57 L 02/27/20 06:00 O2 Sat by Pulse Oximetry (%) 96 02/27/20 06:00 Constitutional: Well Nourished, No Distress, Calm Eyes: Yes: WNL Cardiovascular: Yes: WNL Respiratory: Yes: WNL, Regular, CTA Bilaterally Gastrointestinal Inspection: Yes: WNL ...Auscultate: Yes: Normoactive Bowel Sounds Extremities: Yes: WNL Edema: No Labs: CBC, BMP 02/26/20 07:36 02/26/20 07:36 INR, PTT INR 0.87 (0.83-1.09) 02/24/20 09:40 Problem List - Problems (1) Anemia Assessment/Plan: s/p egd - evidence of PUD s/p colonoscopy - evidence of ectasia rec: diet as tolerated stool softner - colace 100 mg po tid iron supplement ppi 40 mg po qd outpt GI f/u in one week - no objection to dc home Code(s): D64.9 - ANEMIA, UNSPECIFIED Qualifiers: Anemia type: iron deficiency Iron deficiency anemia type: unspecified iron deficiency Qualified Code(s): D50.9 - Iron deficiency anemia, unspecified (2) Angiodysplasia of cecum Code(s): K55.20 - ANGIODYSPLASIA OF COLON WITHOUT HEMORRHAGE (3) Gastric ulcer Code(s): K25.9 - GASTRIC ULCER, UNSP ACUTE OR CHRONIC, W/O HEMOR OR PERF
[2020-02-27 08:41] LABS: BASO % 0.9 % (0-2.0); EOS % 3.3 % (0-4.5); HEMATOCRIT 29.4 % (32.4-45.2); HEMOGLOBIN 9.9 GM/dL (10.7-15.3); LYMPH % 24.6 % (8-40); MCH 29.5 pg (25.7-33.7); MCHC 33.8 g/dl (32.0-36.0); MEAN CELL VOLUME 87.3 fl (80-96); MEAN PLT VOLUME 8.9 fl (7.5-11.1); MONO % 13.3 % (3.8-10.2); NEUT % 57.9 % (42.8-82.8); PLATELET COUNT 310 K/MM3 (134-434); RBC 3.37 M/mm3 (3.60-5.2); RDW 14.5 % (11.6-15.6)
[2020-02-27 09:05] LABS: BLOOD UREA NITROGEN 12.6 mg/dL (7-18); CALCIUM 8.7 mg/dL (8.5-10.1)
[2020-02-27] MEDS: SERTRALINE HCL 50 MG TABLET (FP) PO SCH (09:43)
[2020-02-27] MEDS: PANTOPRAZOLE 40 MG TABLET PO SCH (09:43)
[2020-02-27] MEDS: LISINOPRIL 10 MG TABLET (FP) PO SCH (09:43)
--- NOTE | 2020-02-27 11:33 | DS ---
Physical Examination Vital Signs: Vital Signs Temperature 97.8 F 02/27/20 06:00 Pulse Rate 77 02/27/20 06:00 Respiratory Rate 18 02/27/20 06:00 Blood Pressure 127/57 L 02/27/20 06:00 O2 Sat by Pulse Oximetry (%) 96 02/27/20 06:00 Cardiovascular: Yes: Regular Rate and Rhythm Respiratory: Yes: Regular, CTA Bilaterally Gastrointestinal: Yes: Normal Bowel Sounds, Soft. No: Tenderness Edema: No Labs: CBC, BMP 02/27/20 08:00 02/27/20 08:00 Discharge Summary Problems reviewed: Yes Reason For Visit: WORSENING ANEMIA,GI BLEED Current Active Problems Adult hypothyroidism (Acute) Anemia (Acute) Angiodysplasia of cecum (Acute) Diverticulosis (Acute) Gastric ulcer (Acute) Lipoma of colon (Acute) Hospital Course: - Problems (1) Gastric ulcer Assessment/Plan: ppi egd in 6 weeks Code(s): K25.9 - GASTRIC ULCER, UNSP ACUTE OR CHRONIC, W/O HEMOR OR PERF (2) Adult hypothyroidism Assessment/Plan: resume meds Code(s): E03.9 - HYPOTHYROIDISM, UNSPECIFIED (3) Anemia Assessment/Plan: follow counts if drop will need prbc colon done for capsule endoscopy Code(s): D64.9 - ANEMIA, UNSPECIFIED Qualifiers: Anemia type: iron deficiency Iron deficiency anemia type: unspecified iron deficiency Qualified Code(s): D50.9 - Iron deficiency anemia, unspecified (4) Anxiety Assessment/Plan: same meds Code(s): F41.9 - ANXIETY DISORDER, UNSPECIFIED (5) Diabetes Assessment/Plan: bgm Code(s): E11.9 - TYPE 2 DIABETES MELLITUS WITHOUT COMPLICATIONS (6) HTN (hypertension) Assessment/Plan: monitor Vital Signs Period Temp Pulse Resp BP Sys/Edwards Pulse Ox Last 24 Hr 96.9 F-98.6 F 72-104 15-18 108-174/56-90 96-100 Selected Entries 02/25/20 02/26/20 22:00 05:55 Blood Pressure 148/90 126/56 L Code(s): I10 - ESSENTIAL (PRIMARY) HYPERTENSION plan discussed with patient and daughter Condition: Fair - Instructions Referrals: Reji Dave MD [Primary Care Provider] - 1 Week Ramírez Mendez MD [Staff Physician] - Disposition: HOME - Home Medications Comprehensive Discharge Medication List: Ambulatory Orders Cholecalciferol (Vitamin D3) [Vitamin D3] 1,000 unit PO DAILY 10/28/17 Levothyroxine [Synthroid -] 50 mcg PO DAILY 10/28/17 Sertraline HCl [Zoloft -] 50 mg PO DAILY #30 tablet 10/31/17 Multivitamin 1 each PO DAILY 02/22/20 Lisinopril [Prinivil] 10 mg PO DAILY 02/25/20 Quetiapine Fumarate [Seroquel -] 50 mg PO HS 02/25/20 traZODone HCL [Trazodone HCl] 50 mg PO HS 02/25/20 Pantoprazole Sodium [Protonix -] 40 mg PO DAILY #30 tablet.ec 02/27/20
[2020-02-27 12:04] VITALS: BP 136/52; PULSE 100; TEMP 98
[2020-02-29 18:08] LABS: GLIADIN ANTIBODY IGA 5 units (0-19); GLIADIN ANTIBODY IGG 4 units (0-19); TRANSGLUTAMINASE IGG < 2 U/mL (0-5)
--- NOTE | 2020-03-01 17:49 | PATH ---
Surgical Pathology Report Patient Name: JUAN HOFFMAN Med. Rec. #: [id number] /Age/Gender: 1940 (Age: 79) / F Account: [id number] Location: [address] [place] [address]/[facility] Taken: 02/26/2020 Received: 02/29/2020 Reported: 03/01/2020 Physicians: Zeus Hernandez M.D. Specimen(s) Received RIGHT COLON LIPOMA Clinical History Anemia Postoperative diagnosis: Diverticulosis, angiodysplasia in cecum, right colon lipoma Final Diagnosis RIGHT COLON LIPOMA, BIOPSY: COLONIC MUCOSA AND PORTION OF MATURE ADIPOSE TISSUE, CONSISTENT WITH LIPOMA. Electronically Signed Jade Garcia M.D. Gross Description Received in formalin, labeled "biopsy right colon lipoma" is a chen, irregular portion of soft tissue measuring 0.5 cm. in greatest dimension. The specimen is submitted in toto in one cassette. /02/29/2020 saudi02/29/2020
== END 2020-02-27 13:27 | disposition home or self-care (01) | DRG 384 ==
LOC: JER 09:02 → JERBED 12:17 → UNDOADMIN 19:53 → JERBED 19:53 → J6S 02-25 13:57
PROVIDERS: ADMIT Family Medicine; ATTEND Family Medicine
PROC: 0DB78ZX Excision of Stomach, Pylorus, Via Natural or Artificial Opening Endoscopic, Diagnostic (ICD-10-PCS; 2020-02-25)
PROC: 0DB68ZX Excision of Stomach, Via Natural or Artificial Opening Endoscopic, Diagnostic (ICD-10-PCS; principal; 2020-02-25 11:30)
PROC: 30233N1 Transfusion of Nonautologous Red Blood Cells into Peripheral Vein, Percutaneous Approach (ICD-10-PCS; 2020-02-26)
PROC: 0DBK8ZX Excision of Ascending Colon, Via Natural or Artificial Opening Endoscopic, Diagnostic (ICD-10-PCS; 2020-02-26)
DX: K25.9 Gastric ulcer, unspecified as acute or chronic, without hemorrhage or perforation (principal); D50.9 Iron deficiency anemia, unspecified; I10 Essential (primary) hypertension; E03.9 Hypothyroidism, unspecified; E11.9 Type 2 diabetes mellitus without complications; F41.9 Anxiety disorder, unspecified; K55.20 Angiodysplasia of colon without hemorrhage; K57.90 Diverticulosis of intestine, part unspecified, without perforation or abscess without bleeding; D17.5 Benign lipomatous neoplasm of intra-abdominal organs; D64.9 Anemia, unspecified; K57.30 Diverticulosis of large intestine without perforation or abscess without bleeding; K64.8 Other hemorrhoids
CPT/HCPCS: 36415; 36430; 71046-TC-FY; 80048; 80053; 82272; 82728; 82784; 82962; 83516; 83540; 83550; 84155; 84165; 85025; 85027; 85045; 85610; 86850; 86900; 86901; 86922; 88305-TC; 88342-TC; 93005; 93010; 99285-25; J0131; J1756; P9058; U0003

== ENCOUNTER 2020-07-05 04:58 | Day surgery (SDC) | payer OTHER ==
[2020-06-29 13:22] VITALS: BMI 29.7
[2020-07-05 12:08] VITALS: TEMP 98.4
[2020-07-05 14:50] VITALS: BP 147/72; PULSE 79
== END 2020-07-05 13:05 | disposition home or self-care (01) ==
LOC: JASU-ENDO 04:58
PROVIDERS: ATTEND Internal Medicine Gastroenterology
PROC: 0DB68ZX Excision of Stomach, Via Natural or Artificial Opening Endoscopic, Diagnostic (ICD-10-PCS; 2020-07-05)
PROC: 0DB48ZX Excision of Esophagogastric Junction, Via Natural or Artificial Opening Endoscopic, Diagnostic (ICD-10-PCS; principal; 2020-07-05 10:30)
DX: K25.9 Gastric ulcer, unspecified as acute or chronic, without hemorrhage or perforation (principal); K29.50 Unspecified chronic gastritis without bleeding; K44.9 Diaphragmatic hernia without obstruction or gangrene; K21.00 Gastro-esophageal reflux disease with esophagitis, without bleeding
CPT/HCPCS: 88305-TC; 88342-TC

== ENCOUNTER 2022-01-11 15:29 | Inpatient (IN) | payer OTHER ==
[2022-01-11 15:40] VITALS: BMI 31.5
[2022-01-11] MEDS ORDERED: FAMOTIDINE 20 MG/50 ML IVPB 20 MG/50 ML MG IVPB ONE ×2 (16:38→16:55)
[2022-01-11] MEDS ORDERED: MAG HYDROX/AL HYDROX/SIMETH 30 ML UNIT-DOSE CUP PO ONE (16:38)
[2022-01-11] MEDS ORDERED: ONDANSETRON 4 MG/2 ML VIAL IVPUSH ONE (16:38)
[2022-01-11] MEDS ORDERED: MAG HYDROX/AL HYDROX/SIMETH 30 ML UNIT-DOSE CUP ONE (16:54)
[2022-01-11] MEDS ORDERED: ONDANSETRON 4 MG/2 ML VIAL ONE (16:54)
[2022-01-11 18:39] LABS: ALBUMIN 3.8 g/dl (3.4-5.0); BLOOD UREA NITROGEN 23.7 mg/dL (7-18); CALCIUM 10.2 mg/dL (8.5-10.1); MAGNESIUM 2.2 mg/dL (1.8-2.4)
[2022-01-11] MEDS ORDERED: SODIUM CHLORIDE 0.9% 500 ML INFUS.BAG IV ONE (18:40)
[2022-01-11 18:42] LABS: CREATININE 1.1 mg/dL (0.55-1.3)
[2022-01-11 18:43] LABS: BILIRUBIN,TOTAL 0.7 mg/dL (0.2-1)
[2022-01-11 18:44] LABS: TOT PROT 9.2 g/dl (6.4-8.2)
[2022-01-11 18:48] LABS: BASO % 0.4 % (0-2.0); EOS % 0.2 % (0-4.5); HEMATOCRIT 40.8 % (32.4-45.2); HEMOGLOBIN 13.9 GM/dL (10.7-15.3); LYMPH % 13.1 % (8-40); MCH 30.3 pg (25.7-33.7); MEAN CELL VOLUME 88.9 fl (80-96); MEAN PLT VOLUME 8.6 fl (7.5-11.1); MONO % 9.5 % (3.8-10.2); NEUT % 76.8 % (42.8-82.8); PLATELET COUNT 319 10^3/uL (134-434); RBC 4.58 M/mm3 (3.60-5.2); RDW 13.7 % (11.6-15.6); WHITE BLOOD COUNT 18.7 K/mm3 (4.0-10.0)
[2022-01-11 19:07] LABS: INR 0.88 (0.83-1.09); PROTHROMBIN TIME (PATIENT) 10.1 SEC (9.7-13.0)
[2022-01-11 19:10] LABS: ACTIVATED PTT 17.9 SECONDS (25.2-36.5)
[2022-01-11 21:53] LABS: PH,URINE 5.5 (5.0-8.0); URINE APPEARANCE CLEAR; URINE BILIRUBIN NEGATIVE (NEGATIVE); URINE COLOR YELLOW; URINE GLUCOSE (UA) NEGATIVE (NEGATIVE); URINE KETONE NEGATIVE (NEGATIVE); URINE LEUK ESTERASE NEGATIVE (NEGATIVE); URINE NITRITE NEGATIVE (NEGATIVE); URINE PROTEIN NEGATIVE (NEGATIVE); URINE UROBILINOGEN 0.2 mg/dL (0.2-1.0)
[2022-01-12] MEDS: SODIUM CHLORIDE 1,000 ML IV SCH
[2022-01-12] MEDS: LEVOTHYROXINE NA 50 MCG TABLET (FP) PO SCH (06:06)
[2022-01-12] MEDS ORDERED: LEVOTHYROXINE NA 50 MCG TABLET (FP) ONE (06:10)
[2022-01-12 08:41] LABS: BASO % 0.3 % (0-2.0); EOS % 0.1 % (0-4.5); HEMATOCRIT 38.9 % (32.4-45.2); HEMOGLOBIN 13.3 GM/dL (10.7-15.3); MCH 30.6 pg (25.7-33.7); MCHC 34.3 g/dl (32.0-36.0); MEAN CELL VOLUME 89.1 fl (80-96); MEAN PLT VOLUME 8.2 fl (7.5-11.1); MONO % 9.3 % (3.8-10.2); NEUT % 78.3 % (42.8-82.8); PLATELET COUNT 311 10^3/uL (134-434); RBC 4.37 M/mm3 (3.60-5.2); WHITE BLOOD COUNT 16.3 K/mm3 (4.0-10.0)
[2022-01-12 09:04] LABS: CALCIUM 9.8 mg/dL (8.5-10.1)
[2022-01-12 09:05] LABS: ALBUMIN 3.4 g/dl (3.4-5.0); BLOOD UREA NITROGEN 18.1 mg/dL (7-18); MAGNESIUM 2.4 mg/dL (1.8-2.4)
[2022-01-12 09:07] LABS: CREATININE 1.1 mg/dL (0.55-1.3)
[2022-01-12 09:09] LABS: BILIRUBIN,TOTAL 0.5 mg/dL (0.2-1); TOT PROT 8.2 g/dl (6.4-8.2)
[2022-01-12] MEDS ORDERED: PANTOPRAZOLE 40 MG TABLET PO ONE (10:12)
[2022-01-12] MEDS ORDERED: MULTIVITAMINS (DAILY MVI) TABLET (FP) ONE (10:13)
[2022-01-12] MEDS: PANTOPRAZOLE 40 MG TABLET PO SCH (10:17)
[2022-01-12] MEDS: MULTIVITAMINS (DAILY MVI) TABLET (FP) PO SCH (10:17)
[2022-01-12] MEDS ORDERED: LISINOPRIL 10 MG TABLET ONE (13:39)
[2022-01-12] MEDS: LISINOPRIL 10 MG TABLET PO SCH (13:45)
[2022-01-13] MEDS: SODIUM CHLORIDE 1,000 ML IV SCH (03:00)
[2022-01-13] MEDS: LEVOTHYROXINE NA 50 MCG TABLET (FP) PO SCH (06:00)
[2022-01-13] MEDS: SERTRALINE HCL 50 MG TABLET (FP) PO SCH (09:40)
[2022-01-13] MEDS: MULTIVITAMINS (DAILY MVI) TABLET (FP) PO SCH (09:40)
[2022-01-13] MEDS: LISINOPRIL 10 MG TABLET PO SCH (09:40)
[2022-01-13] MEDS: PANTOPRAZOLE 40 MG TABLET PO SCH (09:40)
[2022-01-13 12:23] LABS: BASO % 0.8 % (0-2.0); EOS % 0.3 % (0-4.5); HEMATOCRIT 37.6 % (32.4-45.2); HEMOGLOBIN 12.8 GM/dL (10.7-15.3); LYMPH % 16.5 % (8-40); MCH 30.4 pg (25.7-33.7); MEAN CELL VOLUME 89.2 fl (80-96); MEAN PLT VOLUME 8.7 fl (7.5-11.1); MONO % 9.4 % (3.8-10.2); PLATELET COUNT 297 10^3/uL (134-434); RBC 4.22 M/mm3 (3.60-5.2); RDW 14.3 % (11.6-15.6); WHITE BLOOD COUNT 14.2 K/mm3 (4.0-10.0)
[2022-01-13 12:43] LABS: ALBUMIN 3.2 g/dl (3.4-5.0); CALCIUM 9.7 mg/dL (8.5-10.1)
[2022-01-13 12:48] LABS: BILIRUBIN,TOTAL 0.4 mg/dL (0.2-1); TOT PROT 7.8 g/dl (6.4-8.2)
[2022-01-13 21:47] VITALS: RESP 18
[2022-01-13] MEDS ORDERED: QUEtiapine FUMARATE 50 MG TABLET PO SCH (22:00)
[2022-01-14] MEDS: SODIUM CHLORIDE 1,000 ML IV SCH ×2 (02:40→02:41)
[2022-01-14] MEDS: LEVOTHYROXINE NA 50 MCG TABLET (FP) PO SCH (06:01)
[2022-01-14 08:22] VITALS: BP 149/67; PULSE 75; TEMP 98.5
[2022-01-14] MEDS: PANTOPRAZOLE 40 MG TABLET PO SCH (09:39)
[2022-01-14] MEDS: SERTRALINE HCL 50 MG TABLET (FP) PO SCH (09:39)
[2022-01-14] MEDS: LISINOPRIL 10 MG TABLET PO SCH (09:39)
[2022-01-14] MEDS: MULTIVITAMINS (DAILY MVI) TABLET (FP) PO SCH (09:39)
[2022-01-14 10:04] LABS: BASO % 0.7 % (0-2.0); EOS % 0.5 % (0-4.5); HEMATOCRIT 35.1 % (32.4-45.2); HEMOGLOBIN 11.9 GM/dL (10.7-15.3); LYMPH % 20.2 % (8-40); MCH 30.4 pg (25.7-33.7); MCHC 33.8 g/dl (32.0-36.0); MEAN CELL VOLUME 89.9 fl (80-96); MEAN PLT VOLUME 8.7 fl (7.5-11.1); MONO % 10.3 % (3.8-10.2); NEUT % 68.3 % (42.8-82.8); PLATELET COUNT 253 10^3/uL (134-434); RBC 3.91 M/mm3 (3.60-5.2); RDW 14.1 % (11.6-15.6); WHITE BLOOD COUNT 11.7 K/mm3 (4.0-10.0)
[2022-01-14 10:25] LABS: CALCIUM 9.1 mg/dL (8.5-10.1)
[2022-01-14 10:29] LABS: CREATININE 0.9 mg/dL (0.55-1.3)
== END 2022-01-14 14:00 | disposition home or self-care (01) | DRG 641 ==
LOC: JER 15:29 → JERBED 18:53 → J4W 01-13 02:24
PROVIDERS: ADMIT Hospitalist; ATTEND Family Medicine
DX: E87.1 Hypo-osmolality and hyponatremia (principal); R07.89 Other chest pain; E11.9 Type 2 diabetes mellitus without complications; I10 Essential (primary) hypertension; E03.9 Hypothyroidism, unspecified; R10.13 Epigastric pain; D64.9 Anemia, unspecified; E86.0 Dehydration; K25.9 Gastric ulcer, unspecified as acute or chronic, without hemorrhage or perforation; D72.829 Elevated white blood cell count, unspecified; R05.9 Cough, unspecified
CPT/HCPCS: 36415; 71045-TC-FY; 71250-TC; 74177-TC; 80048; 80053; 80061; 81003; 82962; 83036; 83605; 83690; 83735; 84443; 84484; 85025; 85610; 85730; 87040; 87086; 87338; 93005; 93010; 99285-25; C9803-CS; U0003; U0005